=== PATIENT | male | born 1940 | race Caucasian/White ===

== ENCOUNTER 2019-09-29 07:57 | Day surgery (SDC) | payer OTHER, SELFPAY ==
[2019-09-28 10:13] VITALS: BMI 14.8
[2019-09-29 08:35] VITALS: BMI 14.8
--- NOTE | 2019-09-29 08:45 | ANES.PREANE2 ---
Pre-Anesthetic Assessment Pre-Anesthetic Assessment: Height/Weight: Height 1.88 m Weight 52.163 kg Preop Diagnosis: Screening colonoscopy with history of partial colectomy Proposed Procedure: Operation Date: 09/29/19 09:00 Proposed Procedures p Colonoscopy(Not Applicable) - Arnold Mckinney MD Was Beta Yelitza taken within 24 hours: N/A Last intake: Intake Last Liquid Date 09/28/19 Last Liquid Time 22:00 Last Solid Date 09/27/19 Last Solid Time 16:30 Social: Social History: Tobacco and No alcohol Exam: Pre-Anes Outpt Exam: alert, oriented x 3, clear to auscultation bilaterally and regular rate & rhythm Airway: Submandibular: WNL Cervical ROM: WNL MP: 1 Additional comments: upper edentulous, lower arch poor dentition Pulmonary: Pulmonary: COPD CV/HEM: CV/HEM: HTN Comments: pvdZ, cad, aaa : : Chronic renal failure Hepatic: Hepatic: None reported GI: GI: GERD Musc/skel: Musc/skel: None reported Neuropsych: Neuropsych: None reported Anesthetic Plan: ASA status: 3 Anesthesia: MAC Risk of > 500 ml blood loss (7ml/kg in children): No PFSH Anesthesia PFSH: Social History Smoking and tobacco status: current every day smoker cigarettes Packs smoked per day: 0.5 Alcohol intake: current Alcohol intake frequency: few times a month Lives independently: Yes Household members: family service: Yes Current occupational status: retired History of recent travel: No Data Anesthesia Cardiac Studies: No Data to Display
--- NOTE | 2019-09-29 08:50 | W.PM.OPSFHP ---
Same Day Surgery H&P Indication for Procedure/HPI DATE OF PROCEDURE: September 29, 2019 CHIEF COMPLAINT/INDICATIONFOR SURGICAL PROCEDURE: Screening colonoscopy PREOP DIAGNOSIS: Screening colonoscopy with history of partial colectomy PLANNED PROCEDRUE: Operation Date: 09/29/19 09:00 Proposed Procedures p Colonoscopy(Not Applicable) - Arnold Mckinney MD This is a 79 years old gentleman presented to my office for referral to discuss screening colonoscopy as patient had history of partial colectomy for colon cancer but he does not recall which part of the colon was removed. The scheduled for today to perform a screening colonoscopy ROS All systems have been reviewed negative except as per the above Medications/Allergies* Home Medications Medication Instructions Recorded Confirmed Type albuterol sulfate 90 mcg/actuation 2 inh INHALATION Q6H PRN 08/26/19 09/28/19 History breath activated powder inhaler multivitamin 1 tab PO DAILY 08/26/19 09/28/19 History Allergies/Adverse Reactions Allergy/AdvReac Type Severity Reaction Status Date / Time No Known Allergies Allergy Verified 09/29/19 08:51 Pertinent History/Comorbid Conditions* Surgical History (Updated 08/27/19 @ 11:48 by Arnold Mckinney MD) History of cholecystectomy Thinks he might have some of his colon removed with this surgery History of hernia surgery He said he has had a few of these History of tonsillectomy and adenoidectomy Family History (Updated 08/26/19 @ 13:48 by IRENE Springer) Denies family history of Anesthesia complication Bleeding disorder Social History Smoking and tobacco status: current every day smoker cigarettes Packs smoked per day: 0.5 Alcohol intake: current Alcohol intake frequency: few times a month Lives independently: Yes Household members: family service: Yes Current occupational status: retired History of recent travel: No Pertinent Exam Findings alert, oriented x 3, clear to auscultation bilaterally, regular rate & rhythm and procedure specific exam findings (Abdomen nontender non-distended soft and no guarding or rigidity) Pertinent Data PERTINENT DATA: Plan of care; After thorough history and physical examination and reviewing the chart, plan to perform screening colonoscopy in the GI lab All questions have been answered and all concerns have been addressed to patient's satisfaction. Informed consent per chart were,Indications, risks, benefits, and alternatives were all discussed with the patient and did agree to proceed. Verbal and written Instructions were given to the patient for colonoscopy prep Recommendations Surgery/Procedure today (Screening colonoscopy) Coding Level of Care Code Acute Line Appliance Assembler for Mejia Barber
[2019-09-29 08:53] VITALS: BP 147/80; PULSE 68; RESP 18; TEMP 36.4; O2SAT 98
[2019-09-29] MEDS: sodium chloride 0.9% 1,000 ML 30 ML (08:58)
[2019-09-29 10:16] VITALS: BP 93/54; PULSE 68; RESP 16; TEMP 36.3; O2SAT 98
--- NOTE | 2019-09-29 10:39 | ANE.PACU2 ---
 Inpatient post-anesthesia follow up: Airway intact: Yes Vital signs: Temperature 97.4 F Pulse Rate 68 Respiratory Rate 16 Blood Pressure 93/54 Pulse Oximetry 98 Oxygen Delivery Me thod Nasal Cannula Oxygen Flow Rate 3 Fraction of Inspir ed Oxygen Hydration adequate: Yes Nausea and vomiting: No Pain level: 1 Mental status: Baseline
[2019-09-29 10:40] VITALS: BP 107/56; PULSE 67; RESP 18; O2SAT 95
--- NOTE | 2019-09-29 10:48 | XR_ITS ---
WS: [id number] JEB, 09/29/2019 Clinical Data: S/p felx sig rule out gaseous distention prior to BA enema Comparison: None. Findings: No abnormal intraabdominal masses or calcifications are seen. There is no dilatated small bowel or ev idence of obstruction. There is a large amount of air throughout the colon but no obstruction is seen. There are clips in th e gastroesophageal area and in the right upper quadrant from surgery. XR/XR KUB [id number] Impression: Large amount of air throughout colon from flexible sigmoidoscopy.
== END 2019-09-29 10:57 | disposition home or self-care (01) ==
PROVIDERS: Family Provider Internal Medicine; PCP Internal Medicine; Visit Provider Surgery
PROC: 0DJD8ZZ Inspection of Lower Intestinal Tract, Via Natural or Artificial Opening Endoscopic (ICD-10-PCS; CPT 45378; principal; 2019-09-29 09:00)
DX: Z12.11 Encounter for screening for malignant neoplasm of colon (principal); K57.30 Diverticulosis of large intestine without perforation or abscess without bleeding; Z90.49 Acquired absence of other specified parts of digestive tract; F17.210 Nicotine dependence, cigarettes, uncomplicated; J44.9 Chronic obstructive pulmonary disease, unspecified; I10 Essential (primary) hypertension; K21.9 Gastro-esophageal reflux disease without esophagitis
CPT/HCPCS: 12345; 45330; 74018; J2704; J7030

== ENCOUNTER 2019-10-11 07:49 | Outpatient (CLI) | payer OTHER, SELFPAY ==
--- NOTE | 2019-10-11 07:57 | FL_ITS ---
WS: [id number] INDICATION: Diverticulosis TECHNIQUE: Single contrast barium enema FINDINGS: Markedly tortuous sigmoid colon with diverticulosis. No evidence of high-grade stricture or mass. Normal hepatic and splenic flexures. Normal cecum and ileocecal valve. Normal postdrainage landy ges Osteopenia. Lumbar scoliosis convex left. Surgical clips at the GE junction. FL/FL barium enema [id number] IMPRESSION: 1. Markedly tortuous sigmoid colon with diverticulosis. 2. No evidence of high-grade stricture or obstructing mass. 3. Normal ileocecal valve.
== END 2019-10-11 07:50 | disposition home or self-care (01) ==
LOC: RAD 07:50
PROVIDERS: Family Provider Internal Medicine; PCP Internal Medicine; Visit Provider Surgery
DX: K57.90 Diverticulosis of intestine, part unspecified, without perforation or abscess without bleeding (principal)
CPT/HCPCS: 74270

== ENCOUNTER 2022-04-03 12:02 | Inpatient (IN) | payer OTHER, SELFPAY ==
[2022-04-03] VITALS (12 sets, daily range): BP systolic 125–152; BP diastolic 65–82; PULSE 74–84; RESP 18–20; TEMP 36.7; O2SAT 86–100; BMI 14.1
--- NOTE | 2022-04-03 13:38 | XR_ITS ---
WS: [id number] XR hip LT 2-3V wo/w pel* [id number] REASON FOR EXAM: fall injury FINDINGS: Moderate narrowing of the hip joint space with subchondral sclerosis and marginal osteophytosis of th e acetabulum. Subtle deformity of the superior aspect of the femoral neck and linear lucencies in the intertrochant jaime region. Suspect incomplete nondisplaced intertrochanteric fracture. Superior pubic ramus and inferior pubic ramus are intact. Acetabulum appears intact. XR/XR hip LT 2-3V wo/w pel* [id number] IMPRESSION: Likely incomplete nondisplaced intertrochanteric fracture. A CT scan of the lef t hip could be obtained for better evaluation as clinically warranted.
--- NOTE | 2022-04-03 13:38 | XR_ITS ---
WS: [id number] XR femur LT min 2V* [id number] REASON FOR EXAM: fall injury FINDINGS: Intertrochanteric abnormality as noted on the left hip x-ray. The remainder of the left femur is intact without fracture. No significant soft tissue abnormality. XR/XR femur LT min 2V* [id number] IMPRESSION: No fracture of the mid and distal femur as above.
--- NOTE | 2022-04-03 14:48 | XR_ITS ---
WS: [id number] XR chest 1V portable [id number] REASON FOR EXAM: dyspnea/cough FINDINGS: Moderate tortuosity of the thoracic aorta. Normal heart size. Calcified granulomatous disease bilaterally. Significant hyperexpansion of the lungs. Small vague areas of lucency within the lung parenchyma In the upper lobes compatible with central lobar emphysema. No acute pulmonary parenchymal or pleural abnormality. Moderate degenerative spondylosis in the mid and lower thoracic spine. XR/XR chest 1V portable [id number] IMPRESSION: Obstructive lung disease with no acute finding.
--- NOTE | 2022-04-03 14:58 | CTR_ITS ---
PROCEDURE INFORMATION: Exam: CT Left Lower Extremity Without Contrast, Hip Exam date and time: 04/03/2022 3:27 PM Age: 81 years old Clinical indication: Injury or trauma and abnormal findings; Fall; Abnormal imaging study; Abnormal left hip XR; Blunt trauma; Additional info: Abnormal plain x-ray TECHNIQUE: Imaging protocol: CT of the Left lower extremity without contrast was performed. Exam focused on the hip. Axial, coronal and sagittal reformatted images were created and reviewed. Radiation optimization: All CT scans at this facility use at least one of these dose optimization techniques: automated exposure control; mA and/or kV adjustment per patient size (includes targeted exams where dose is matched to clinical indication); or iterative reconstruction. COMPARISON: CR XR hip LT 2-3V wo/w pel* [id number] 04/03/2022 1:46 PM RADIATION DOSE METRICS: Total DLP (mGy-cm): 217.11 FINDINGS: Bones/joints: Comminuted, minimally displaced fracture of the greater humeral tuberosity with nondisplaced fracture lines extending to the anterior aspect of the inter trochanteric region. No dislocation. Mild left hip joint osteoarthrosis. Small hemarthrosis. Soft tissues: Normal. Reproductive: Markedly enlarged prostate. CT/CT hip LT wo con* [id number] IMPRESSION: 1. Proximal femur fracture, as described above. 2. Additional findings, as above.
[2022-04-03 15:19] LABS: Basophils % 0.4 %; Eosinophils # 0.1 10^3/uL (0.0-0.8); Eosinophils % 0.7 %; Hematocrit 46.2 % (42.0-52.0); Hemoglobin 14.9 g/dL (11.7-16.6); Lymphocytes % 8.9 %; Mean Corpuscular HGB Conc 32.3 g/dL (30.0-36.0); Mean Corpuscular Hemoglobin 30.7 pg (28.0-34.0); Mean Corpuscular Volume 95.1 fl (80-94); Mean Platelet Volume 10.6 fL (7.4-10.4); Monocytes # 0.9 10^3/uL (0.2-0.9); Monocytes % 8.1 %; Neutrophils # 9.14 10^3/uL (1.8-7.7); Neutrophils % 81.6 %; Nucleated Red Blood Cells % 0 %; Platelet Count 210 10^3/cmm (130-400); Red Blood Count 4.86 10^6/uL (4.1-5.3); Red Cell Distribution Width 13.7 % (12.1-15.1); White Blood Count 11.2 10^3/uL (4.0-10.0)
[2022-04-03 15:33] LABS: INR 1.06 (0.8-1.2)
[2022-04-03 15:34] LABS: Partial Thromboplastin Time 28.8 SECONDS (23.9-36.7)
[2022-04-03 15:38] LABS: Add Urine Microscopic? NO; Charge for UA Resulting for Rev
[2022-04-03 15:40] LABS: Alanine Aminotransferase 21 U/L (0-41); Albumin Level 4.2 g/dL (3.5-5.2); Alkaline Phosphatase 129 U/L (40-130); Aspartate Amino Transferase 20 U/L (0-40); Blood Urea Nitrogen 18 mg/dL (8-23); Calcium 9.5 mg/dL (8.5-10.5); Carbon Dioxide 23 mmol/L (22-29); Chloride 100 mmol/L (98-107); Globulin 3.2 g/dL (1.3-4.6); Glucose 99 mg/dL (65-115); Osmolality Calculated 286 mOsm/kg (285-295); Sodium 137 mmol/L (136-145); Total Bilirubin 1.2 mg/dL (0.15-1.2); Total Protein 7.4 g/dL (6.6-8.7)
[2022-04-03 15:43] LABS: Anion Gap 19.1 (5-19); Potassium 5.1 mmol/L (3.5-5.1)
[2022-04-03 15:45] LABS: Bilirubin Urine Neg (Negative); Blood Urine Neg (Negative); Glucose Urine UA Norm (Normal); Ketones Urine 1+ (Negative); Leukocyte Esterase Urine Negative (Negative); Nitrate Urine Negative (Negative); Protein Urine Neg (Negative); Urine Appearance Clear (CLEAR); Urine Color Dark Yellow (Yellow); Urobilinogen Urine 1 mg/dL (Negative); pH Urine 6 (5-7)
[2022-04-03] MEDS: ondansetron 2 mg/ML SDV 2 mL 4 MG IVP ×2 (15:47→23:04)
[2022-04-03] MEDS: morphine 4 mg/mL SDV 1 mL IVP ×2 (15:47→23:04)
--- NOTE | 2022-04-03 15:54 | ECG_ITS ---
[facility] Test Date: 2022-04-03 Pat Name: Thaddeus Shahid Department: Room: Gender: Male Financial Solutions Advisor: GINNY: 1940 Requested By: Ziyad Dejesus Order Number: [id number] Tawnya MD: Vitaly Gonzales M.D. Measurements Intervals [place] Rate: 79 P: 90 [place]: 177 QRS: 10 QRSD: 98 T: 79 QT: 386 QTc: 443 Interpretive Statements SINUS RHYTHM WITH OCCASIONAL SUPRAVENTRICULAR PREMATURE COMPLEXES SEPTAL MYOCARDIAL INFARCTION , OF INDETERMINATE AGE [40+ ms Q WAVE IN V1/V2] No previous ECG available for comparison Electronically Signed On 04-04-2022 10:34:34 CDT by Vitaly Gonzales M.D. [id number]
--- NOTE | 2022-04-03 15:56 | ED_ITS ---
HPI - Fall General: Chief Complaint: Fall Stated Complaint: Leg Pain Time Seen by Provider: 04/03/22 14:46 Source: patient Mode of arrival: EMS History of Present Illness: 81-year-old male presents emergency room he tripped and fell yesterday and hurt his left leg. Patient is complaining is not able to bear weight. He complains of severe pain in his left hip radiating down the lateral part of his upper leg. He had no other injury at the time of the fall. He has a history of severe COPD is very coarse audible wheezes as well. No recent fever sweats or chills. MD complaint: fall Onset (ago): day(s) (1) Fall from: standing Fall witnessed: no Place fall occurred: home Loss of consciousness: None Prolonged down time: no Symptoms prior to fall: none Context: tripped/slipped Location of injury: other (Left hip) Associated symptoms-after fall: Reports difficulty walking; Denies abdominal pain, chest pain, confusion, headache(s), hematuria, lightheadedness, neck pain, numbness, short of breath, vertigo or weakness Review of Systems Const: Denies: fever(s), chills, body aches, change in appetite, fatigue or malaise ENMT: Denies: throat pain, ear or mastoid pain, nasal discharge or nasal congestion Card: Denies: chest pain or lightheadedness Resp: Denies: dyspnea, productive cough or non-productive cough GI: Denies: abdominal pain : Denies: hematuria Musc: Denies: neck pain Skin/Breast: Denies: rash or pruritus Neuro: Reports: difficulty walking; Denies: headache(s), vertigo or confusion PFS ED PFSH: Medical History (Updated 04/03/22 @ 17:15 by Ziyad Tan DO) COPD (chronic obstructive pulmonary disease) Surgical History History of cholecystectomy Thinks he might have some of his colon removed with this surgery History of hernia surgery He said he has had a few of these History of tonsillectomy and adenoidectomy Family History Denies family history of Anesthesia complication Bleeding disorder Social History (Updated 04/03/22 @ 17:13 by Ziyad Tan DO) Smoking and tobacco status: current every day smoker cigarettes Packs smoked per day: 0.5 Alcohol intake: current Alcohol intake frequency: few times a month Lives independently: Yes Household members: family service: Yes Current occupational status: retired History of recent travel: No Physical Exam Const: GENERAL APPEARANCE: cooperative and comfortable ORIENTATION/ CONSCIOUSNESS: Yes awake, Yes oriented to person, Yes oriented to place and Yes oriented to time HENMT: COMMON NORMALS: normocephalic and atraumatic HEAD & SCALP: normocephalic and atraumatic Resp: COMMON NORMALS: normal respiratory effort, No retractions, No use of accessory muscles and clear to auscultation bilaterally AUSCULTATION: clear to auscultation bilaterally Cardio: COMMON NORMALS: regular rate, regular rhythm and No murmurs present (Cardio) RATE: regular rate RHYTHM: regular rhythm GI: COMMON NORMALS: Soft to palpation and No hepatosplenomegaly present AUSCULTATION: Yes normoactive bowel sounds PALPATION: Yes Soft to palpation, No Tenderness to palpation present (GI), No Guarding due to palpation present (GI) and Yes No hepatosplenomegaly present Extremity: COMMON NORMALS: normal to inspection, capillary refill normal, no clubbing, cyanosis or edema, no calf tenderness and no pedal edema OTHER: Pain to the left hip no deformity inability to move Neuro: SENSORIUM/ORIENTATION: Yes oriented to person, Yes oriented to place and Yes oriented to time Skin: COMMON NORMALS: no rashes or lesions noted GENERAL SKIN EXAM: no rashes or lesions noted Course Vital Signs: Vital signs: Vital Signs Temperature 98.1 F 04/03/22 13:22 Pulse Rate 77 04/03/22 17:10 Respiratory Rate 18 04/03/22 17:08 Blood Pressure 126/65 04/03/22 15:00 Pulse Oximetry 92 04/03/22 17:08 Oxygen Delivery Me thod 04/03/22 17:08 MDM - Fall Medical Decision Making X-ray shows questionable left hip fracture CT confirms discussed with Dr. Roman he reviewed the films confirms he will need surgery and will admit. Admit to hospital discussed Dr. Jiang orders written Medical Records I reviewed the patient's medical records. Lab Data I reviewed the patient's lab results. : 04/03/22 15:12 04/03/22 15:12 Radiology Impressions Femur X-Ray 04/03/22 13:38 IMPRESSION: No fracture of the mid and distal femur as above. Hip/Pelvis X-Ray 04/03/22 13:38 IMPRESSION: Likely incomplete nondisplaced intertrochanteric fracture. A CT scan of the left hip could be obtained for better evaluation as clinically warranted. Chest X-Ray 04/03/22 14:48 IMPRESSION: Obstructive lung disease with no acute finding. Hip CT 04/03/22 14:58 IMPRESSION: 1. Proximal femur fracture, as described above. 2. Additional findings, as above. Laboratory Results WBC 11.2 10^3/uL (4.0-10.0) H 04/03/22 15:12 RBC 4.86 10^6/uL (4.1-5.3) 04/03/22 15:12 Hgb 14.9 g/dL (11.7-16.6) 04/03/22 15:12 Hct 46.2 % (42.0-52.0) 04/03/22 15:12 MCV 95.1 fl (80-94) H 04/03/22 15:12 MCH 30.7 pg (28.0-34.0) 04/03/22 15:12 MCHC 32.3 g/dL (30.0-36.0) 04/03/22 15:12 RDW 13.7 % (12.1-15.1) 04/03/22 15:12 Plt Count 210 10^3/cmm (130-400) 04/03/22 15:12 MPV 10.6 fL (7.4-10.4) H 04/03/22 15:12 Neut % (Auto) 81.6 % 04/03/22 15:12 Lymph % (Auto) 8.9 % 04/03/22 15:12 [place] % (Auto) 8.1 % 04/03/22 15:12 Eos % (Auto) 0.7 % 04/03/22 15:12 Baso % (Auto) 0.4 % 04/03/22 15:12 Neut # (Auto) 9.14 10^3/uL (1.8-7.7) H 04/03/22 15:12 Lymph # (Auto) 1.0 10^3/uL (0.8-4.8) 04/03/22 15:12 [place] # (Auto) 0.9 10^3/uL (0.2-0.9) 04/03/22 15:12 Eos # (Auto) 0.1 10^3/uL (0.0-0.8) 04/03/22 15:12 Baso # (Auto) 0.0 10^3/uL (0.0-0.1) 04/03/22 15:12 Nucleated RBC % (auto) 0 % 04/03/22 15:12 Nucleated RBCs # 0.0 /100WBC 04/03/22 15:12 PT 14.10 SECONDS (12.1-14.9) 04/03/22 15:12 INR 1.06 (0.8-1.2) 04/03/22 15:12 APTT 28.8 SECONDS (23.9-36.7) 04/03/22 15:12 Sodium 137 mmol/L (136-145) 04/03/22 15:12 Potassium 5.1 mmol/L (3.5-5.1) 04/03/22 15:12 Chloride 100 mmol/L (98-107) 04/03/22 15:12 Carbon Dioxide 23 mmol/L (22-29) 04/03/22 15:12 Anion Gap 19.1 (5-19) H 04/03/22 15:12 BUN 18 mg/dL (8-23) 04/03/22 15:12 Creatinine 0.7 mg/dL (0.7-1.2) 04/03/22 15:12 GFR Calculation Not Reportable 04/03/22 15:12 Glucose 99 mg/dL (65-115) 04/03/22 15:12 Calculated Osmolality 286 mOsm/kg (285-295) 04/03/22 15:12 Calcium 9.5 mg/dL (8.5-10.5) 04/03/22 15:12 Total Bilirubin 1.2 mg/dL (0.15-1.2) 04/03/22 15:12 AST 20 U/L (0-40) 04/03/22 15:12 ALT 21 U/L (0-41) 04/03/22 15:12 Alkaline Phosphatase 129 U/L (40-130) 04/03/22 15:12 Total Protein 7.4 g/dL (6.6-8.7) 04/03/22 15:12 Albumin 4.2 g/dL (3.5-5.2) 04/03/22 15:12 Globulin 3.2 g/dL (1.3-4.6) 04/03/22 15:12 Urine Color Dark yellow (Yellow) 04/03/22 15:24 Urine Appearance Clear (CLEAR) 04/03/22 15:24 Urine pH 6 (5-7) 04/03/22 15:24 Ur Specific [place] 1.020 (1.005-1.030) 04/03/22 15:24 Urine Protein Neg (Negative) 04/03/22 15:24 Urine Glucose (UA) Norm (Normal) 04/03/22 15:24 Urine Ketones 1+ (Negative) H 04/03/22 15:24 Urine Blood Neg (Negative) 04/03/22 15:24 Urine Nitrate Negative (Negative) 04/03/22 15:24 Urine Bilirubin Neg (Negative) 04/03/22 15:24 Urine Urobilinogen 1 mg/dL (Negative) H 04/03/22 15:24 Ur Leukocyte Esterase Negative (Negative) 04/03/22 15:24 Discharge Plan Discharge Patient Disposition: Admitted As Inpatient Clinical Impression: Closed intertrochanteric fracture of left hip, COPD (chronic obstructive pulmonary disease) Condition: Stable Prescriptions: No Action multivitamin [Multiple Vitamins] Tablet 1 tab PO DAILY albuterol sulfate 90 mcg/actuation aerosol powdr breath activated 2 inh INHALATION Q6H PRN (Reason: Shortness Of Breath Or Wheezing) Referrals: Eder Ortiz [Primary Care Provider] - Patient Instructions: Opioid Safety, Pain Management Coding Level of Care Code ED Inspector Tool for Chg Fwd Exam Detailed
[2022-04-03] MEDS: ipratropium-albuterol 3 mL Neb INHALATION (17:05)
--- NOTE | 2022-04-03 18:25 | P.HP_ITS ---
Providers/Chief Complaint Primary Care Provider: Eder Ortiz Chief Complaint: Leg Pain History of Present Illness Thaddeus Shahid is a 81 year old male with no significant past medical history other than COPD and the fact that he is a smoker presents to the hospital after having a mechanical fall. He is currently remodeling a property and he says he tripped over something and fell on his hip. He was having a lot of pain and therefore came to the hospital. He does not use oxygen at home. He says that he has been given an inhaler in the past but does not really use it very often. He is able to walk but eventually gets a little bit short of breath. He does not really follow-up with a doctor. Denies chest pain, shortness of breath at this time, nausea, vomiting, diarrhea. Does have some pain in his hip from his fall. Denies lower extremity edema. Lives at home with his son. Patient unable to bear any weight on his left leg. ED course: On arrival blood pressure 150/74, heart rate stable, on room air saturating 88%. WBC count 11.2. Femur x-ray showed no fracture of middle distal femur, hip pelvis x-ray showed likely incomplete nondisplaced intertrochanteric fracture. Chest x-ray showed COPD with no acute finding. Hip CT showed proximal femur fracture. Case was discussed with orthopedic surgeon on-call. Plan to take patient to surgery in a.m. Medications/Allergies Home Medications Medication Instructions Recorded Confirmed Last Taken Type albuterol sulfate 90 mcg/actuation 2 inh inhalation Q6H PRN Shortness 08/26/19 04/03/22 Unknown History breath activated powder inhaler Of Breath Or Wheezing multivitamin (Multiple Vitamins) 1 tab PO DAILY 08/26/19 04/03/22 Unknown History Allergies Allergy/AdvReac Type Severity Reaction Status Date / Time No Known Allergies Allergy Verified 04/03/22 15:52 PFSH Acute PFSH: Medical History (Updated 04/04/22 @ 11:36 by Fernando Roman MD) COPD (chronic obstructive pulmonary disease) Surgical History History of cholecystectomy Thinks he might have some of his colon removed with this surgery History of hernia surgery He said he has had a few of these History of tonsillectomy and adenoidectomy Family History Denies family history of Anesthesia complication Bleeding disorder Social History (Updated 04/03/22 @ 17:13 by Ziyad Tan DO) Smoking and tobacco status: current every day smoker cigarettes Packs smoked per day: 0.5 Alcohol intake: current Alcohol intake frequency: few times a month Lives independently: Yes Household members: family service: Yes Current occupational status: retired History of recent travel: No Vitals/I&O/Wt Last Vital Signs Temp 98.1 F 04/03/22 13:22 Pulse 77 04/03/22 17:10 Resp 18 04/03/22 17:08 BP 126/71 04/03/22 17:20 Pulse Ox 86 L 04/03/22 17:20 O2 Del Method 04/03/22 17:08 Weight last 48 hrs Weight 49.895 kg Physical Exam Narrative: General: Alert oriented x3, patient seen laying in bed appearing comfortable at this time on room air saturating 89 to 90%. HEENT: Normocephalic, atraumatic, EOMI, breathing comfortably on room air. No acute distress Cardio: Regular rate rhythm, normal S1-S2, no murmurs Respiratory: Diminished air entry bilaterally, no wheezes no rhonchi present at this time. GI: Abdomen soft, nontender, nondistended, bowel sounds + Behavior: Appropriate and cooperative Extremities: No lower extremity edema bilaterally, mild tenderness to palpation at left hip area. Data : 04/04/22 06:19 04/04/22 06:19 A&P Assessment and plan (1) Intertrochanteric fracture of left hip: Status: Acute (2) Closed intertrochanteric fracture of left hip: Status: Acute (3) COPD (chronic obstructive pulmonary disease): Status: Acute (4) Diverticulosis: Status: Chronic Plan #Left proximal femur fracture #COPD centrilobular emphysema #Diverticulosis ? N.p.o. midnight tonight ? Orthopedic surgery consulted. Plan for surgery in a.m. ? DuoNeb every 6 hour as needed ? Patient able to go up a flight of stairs slowly but does get short of breath due to his underlying pulmonary status. He cannot walk a block without shortness of breath. Unable to do 4 METS due to pulmonary status. Denies chest pain. Denies any heart issues otherwise. ? Revised cardiac risk index one-point. Patient has a class II, 6% risk of 30- day risk of AL or cardiac arrest. -Patient does not follow-up with a data center project manager. -We will need to do home oxygen evaluation at discharge and set him up with home oxygen. Most likely patient will qualify. I will also set him up with albuterol, Symbicort, Spiriva. ? We will refer to pulmonology at discharge for formal PFTs and further management ? Orthopedic surgery consulted. Plan for surgery in a.m. All questions answered to patient satisfaction. He states he is already talked to his family and does not want me to call them at this moment. Full code DVT prophylaxis: Heparin SQ twice daily Attestations Medical Necessity Statement*: Patient will cross greater than 2 midnights for management of left proximal femur fracture. Coding Level of Care Code Acute Market Gardener for Mejia Barber Diagnoses Intertrochanteric fracture of left hip S72.142A Closed intertrochanteric fracture of left hip S72.142A COPD (chronic obstructive pulmonary disease) J44.9 Diverticulosis K57.90
[2022-04-03] MEDS: sodium chloride 0.9% 1,000 ML 75 ML IV (21:03)
[2022-04-03] MEDS: famotidine 20 mg/2 mL INJ IVP (21:03)
[2022-04-04] VITALS (34 sets, daily range): BP systolic 99–140; BP diastolic 50–68; PULSE 67–91; RESP 14–22; TEMP 36.3–37.7; O2SAT 87–99; BMI 12.7
[2022-04-04] MEDS: sodium chloride 0.9% 1,000 ML 75 ML IV ×2 (02:18→20:58)
[2022-04-04] MEDS: morphine 4 mg/mL SDV 1 mL IVP ×3 (03:07→18:56)
[2022-04-04] MEDS: efferdent effervescent 1 EACH DENTAL (03:07)
[2022-04-04] MEDS: famotidine 20 mg/2 mL INJ IVP ×2 (06:37→20:57)
[2022-04-04 07:02] LABS: Basophils % 0.3 %; Eosinophils # 0.1 10^3/uL (0.0-0.8); Eosinophils % 1.2 %; Hematocrit 39.5 % (42.0-52.0); Hemoglobin 12.4 g/dL (11.7-16.6); Lymphocytes # 0.7 10^3/uL (0.8-4.8); Lymphocytes % 6.5 %; Mean Corpuscular HGB Conc 31.4 g/dL (30.0-36.0); Mean Corpuscular Hemoglobin 31.2 pg (28.0-34.0); Mean Corpuscular Volume 99.2 fl (80-94); Mean Platelet Volume 10.6 fL (7.4-10.4); Monocytes # 0.8 10^3/uL (0.2-0.9); Monocytes % 7.4 %; Neutrophils # 8.89 10^3/uL (1.8-7.7); Neutrophils % 84.3 %; Nucleated Red Blood Cells % 0 %; Platelet Count 160 10^3/cmm (130-400); Red Blood Count 3.98 10^6/uL (4.1-5.3); White Blood Count 10.5 10^3/uL (4.0-10.0)
[2022-04-04 07:22] LABS: Alanine Aminotransferase 25 U/L (0-41); Albumin Level 3.2 g/dL (3.5-5.2); Alkaline Phosphatase 138 U/L (40-130); Anion Gap 12.4 (5-19); Aspartate Amino Transferase 25 U/L (0-40); Blood Urea Nitrogen 23 mg/dL (8-23); Calcium 8.3 mg/dL (8.5-10.5); Carbon Dioxide 25 mmol/L (22-29); Chloride 107 mmol/L (98-107); Globulin 2.5 g/dL (1.3-4.6); Glucose 125 mg/dL (65-115); Magnesium 1.8 mg/dL (1.7-2.3); Osmolality Calculated 295 mOsm/kg (285-295); Potassium 4.4 mmol/L (3.5-5.1); Sodium 140 mmol/L (136-145); Total Bilirubin 0.5 mg/dL (0.15-1.2); Total Protein 5.7 g/dL (6.6-8.7)
[2022-04-04] MEDS: ipratropium-albuterol 3 mL Neb INHALATION ×3 (07:31→16:32)
--- NOTE | 2022-04-04 10:35 | PC.CHAP ---
Pastoral Care Encounter/Spiritual Assessment Type of Contact [] Declined steel handler visit [] Patient/Family/Request visit [] Outpatient visit [] Follow-up visit [] Physician referral [] Code/Alert [x] Routine visit [] Staff referral [] Actively dying [] Patient sleeping [] Family support [] [] Out of room [] Palliative care [] [x] Receiving care in room [] Pre-surgical visit [] Trauma [] Long length of stay [] ICU visit [] Other: Relational/Emotional Strength [x] Patient feels connected with others/family/visitors/staff [] Distress [] Loneliness/isolation [] Abandonment Spirituality of Patient [] Person of Isatu [] Attends Spiritism of their Isatu [] Believes in Prayer [] Reads Bible or Congregation materials [] There are Spiritual issues to be addressed Vp Research Interventions [x] Prayer [x] Active listening [x] Non-anxious presence [x] Spiritual/emotional support [] Crisis/trauma care [x] Spiritual counseling [] Bereavement support [] Provided bereavement packet [] Provided Bible/devotional materials [] Provided toy/stuffed animal, coloring book to patient or family member [] Provided Communion [] Anointing/[place] [] Salvation [x] Completed spiritual assessment [] Other: Impact on Illness or Injury [] Angry [] Fearful [x] Anxious [] Often cries [] Exhaustion [] Unable to work [] Unable to attend cheondoism [] Unable to walk/stand [] Unable to read [] Unable to drive [] Unable to eat/drink [] Unable to sleep [] Unable to be with family [] Patient intubated [] Other: Summary going to have hip suergry has a good attitude well need some time to recovery will go home soon Time spent with patient 10 mins
--- NOTE | 2022-04-04 11:33 | PM.CONSULT ---
Providers/Reason For Consult Consulting Physician/Specialty*: Fernando Roman MD; orthopedic surgeon Reason for Consult*: Left intratrochanteric hip fracture Attending Physician: Tonya Jiang MD Primary Care Provider: Eder Ortiz History of Present Illness History of Present Illness Thaddeus Shahid is a 81 year old male who allegedly fell at home yesterday with resulting pain in his left hip. He was seen in urgent care where a CT scan was ultimately performed revealing a intratrochanteric hip fracture. The patient's been unable to bear weight. He has a significant history of COPD. He is admitted to the medicine service. Orthopedics is consulted for management of the fracture. He states prior to this he was very active. He actually was remodeling a house. He relied on no aids to ambulation and drove and was fully functional in the community. Medications/Allergies Home Medications Medication Instructions Recorded Confirmed Last Taken Type albuterol sulfate 90 mcg/actuation 2 inh inhalation Q6H PRN Shortness 08/26/19 04/03/22 Unknown History breath activated powder inhaler Of Breath Or Wheezing multivitamin (Multiple Vitamins) 1 tab PO DAILY 08/26/19 04/03/22 Unknown History Allergies Allergy/AdvReac Type Severity Reaction Status Date / Time No Known Allergies Allergy Verified 04/03/22 15:52 Current Medications Generic Name Dose Route Start Last Admin Trade Name Freq PRN Reason Stop Dose Admin Albuterol/Ipratropium 3 ml 04/03/22 20:00 04/04/22 07:31 Ipratropium-Albuterol 3 Ml Neb INHALATION 3 ml QID.RESPIRATORY ALVARO Administration Famotidine 20 mg 04/03/22 18:30 04/04/22 06:37 Famotidine 20 Mg/2 Ml Inj IVP 20 mg Q12H ALVARO Administration Sodium Chloride 1,000 mls @ 75 mls/hr 04/03/22 18:30 04/04/22 02:18 Sodium Chloride 0.9% IV 75 mls/hr .[id number] ALVARO Administration Morphine Sulfate 4 mg 04/03/22 22:34 04/04/22 07:48 Morphine 4 Mg/Ml Sdv 1 Ml IVP 4 mg Q4H PRN Administration SEVERE PAIN Multivitamins Therapeutic 1 tab 04/04/22 09:00 04/04/22 07:38 Multivitamin Therapeutic Tablet PO Not Given DAILY ALVARO Ondansetron HCl 4 mg 04/03/22 22:34 04/03/22 23:04 Ondansetron 2 Mg/Ml Sdv 2 Ml IVP 4 mg Q6H PRN Administration NAUSEA AND VOMITING PFSH Acute PFSH: Medical History (Updated 04/04/22 @ 11:36 by Fernando Roman MD) COPD (chronic obstructive pulmonary disease) Surgical History History of cholecystectomy Thinks he might have some of his colon removed with this surgery History of hernia surgery He said he has had a few of these History of tonsillectomy and adenoidectomy Family History Denies family history of Anesthesia complication Bleeding disorder Social History (Updated 04/03/22 @ 17:13 by Ziyad Tan DO) Smoking and tobacco status: current every day smoker cigarettes Packs smoked per day: 0.5 Alcohol intake: current Alcohol intake frequency: few times a month Lives independently: Yes Household members: family service: Yes Current occupational status: retired History of recent travel: No Vitals/I&O/Wt Last Vital Signs Temp 98.9 F 04/04/22 07:53 Pulse 91 04/04/22 07:53 Resp 18 04/04/22 07:53 BP 115/58 04/04/22 07:53 Pulse Ox 93 04/04/22 07:53 O2 Del Method 04/04/22 07:53 O2 Flow Rate 3 04/04/22 07:39 04/03/22 04/04/22 04/04/22 22:59 06:59 14:59 Intake Total 393.75 / 393.75 Balance 393.75 / 393.75 Weight last 48 hrs Weight 99 lb 8 oz Weight 110 lb Physical Exam Narrative: History hips is a thin elderly male in no obvious distress. He answers questions appropriately. He is oriented to person place or time. Sits in bed with his right hip and knee flexed in his left leg extended. He has exquisite pain with internal or external rotation of the left hip He will flex and extend his left toes and ankle. Left lower extremity sensation is intact light touch. Palpable left dorsalis pedis pulse Data : 04/04/22 06:19 04/04/22 06:[address]: My impression: I reviewed his CT scan of the right hip. The patient is a fracture of the greater trochanter with nondisplaced extension down medial into the lesser trochanter A&P Assessment and plan (1) Intertrochanteric fracture of left hip: I discussed options with the the patient. I told them we could treat this nonoperatively but certainly they would be at risk for medical problems without surgery. Theywould have problems with pain that would require narcotics for pain control. They would require a long period of bedrest aadc plans staff officer risk for pneumonia and skin breakdown. I discussed surgical intervention with the patient. I told them with open reduction internal fixation they should be able to be mobilized and resume ambulatory status. We can eliminate the problems associated with prolonged bed rest and would have better control of pain. Certainly there would be inherent risk with surgery. These would would include the risk of cardiac complications, stroke, infection, and even . I discussed risk of any orthopedic implant including nonunion, malunion, a component failure. I discussed the possible need for component removal. I discussed risk of deep venous thromboses and pulmonary emboli that are present with any treatment and the importance of DVT prophylaxis. They expressed good understanding of alternative treatments, seem to comprehend, and agrees to surgical intervention. 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
--- NOTE | 2022-04-04 13:24 | PM.PN ---
Subjective Subjective: Plan for surgery today around 1130. No acute events overnight. Patient doing okay. Saturating 96% on 2 L nasal cannula. Vitals/I&O/Wt Last Vital Signs Temp 99.2 F 04/04/22 11:34 Pulse 88 04/04/22 11:46 Resp 18 04/04/22 11:39 BP 118/66 04/04/22 11:34 Pulse Ox 93 04/04/22 11:39 O2 Del Method 04/04/22 11:39 O2 Flow Rate 3 04/04/22 11:39 04/03/22 04/04/22 04/04/22 22:59 06:59 14:59 Intake Total 393.75 / 393.75 Balance 393.75 / 393.75 Weight last 48 hrs Weight 45.132 kg Weight 49.895 kg Physical Exam Narrative: General: Alert oriented x3, on 2 L nasal cannula at this time. HEENT: Normocephalic, atraumatic, EOMI, breathing comfortably No acute distress Cardio: Regular rate rhythm, normal S1-S2, no murmurs Respiratory: Diminished air entry bilaterally, no wheezes no rhonchi present at this time. GI: Abdomen soft, nontender, nondistended, bowel sounds + Behavior: Appropriate and cooperative Extremities: No lower extremity edema bilaterally, mild tenderness to palpation at left hip area. Data : 04/04/22 06:19 04/04/22 06:19 A&P Assessment and plan (1) Intertrochanteric fracture of left hip: Status: Acute (2) Closed intertrochanteric fracture of left hip: Status: Acute (3) COPD (chronic obstructive pulmonary disease): Status: Acute (4) Diverticulosis: Status: Chronic Plan #Left proximal femur fracture #COPD centrilobular emphysema #Diverticulosis ? N.p.o. midnight tonight ? Orthopedic surgery consulted. Plan for surgery today around 1130. ? DuoNeb every 6 hour as needed ? Patient able to go up a flight of stairs slowly but does get short of breath due to his underlying pulmonary status. He cannot walk a block without shortness of breath. Unable to do 4 METS due to pulmonary status. Denies chest pain. Denies any heart issues otherwise. ? Revised cardiac risk index one-point. Patient has a class II, 6% risk of 30-day risk of [place] or cardiac arrest. -Patient does not follow-up with a security chief museum. -We will need to do home oxygen evaluation at discharge and set him up with home oxygen. Most likely patient will qualify. I will also set him up with albuterol, Symbicort, Spiriva. ? We will refer to pulmonology at discharge for formal PFTs and further management ? Plan for surgery today. -Order incentive spirometer postsurgery. Full code DVT prophylaxis: Heparin SQ twice daily Attestations Medical Necessity Statement*: Plan for surgery today. Coding Level of Care Code Acute Bottom Crane Operator for [facility] Fwd Diagnoses Intertrochanteric fracture of left hip S72.142A Closed intertrochanteric fracture of left hip S72.142A COPD (chronic obstructive pulmonary disease) J44.9 Diverticulosis K57.90
--- NOTE | 2022-04-04 14:52 | P.ANESASSM_ITS ---
Pre-Anesthetic Assessment Height/Weight: Height 1.88 m Weight 45.132 kg Temp Pulse Resp BP Pulse Ox O2 Del Method O2 Flow Rate 98.0 F 89 18 140/59 99 2 04/04/22 13:28 04/04/22 13:28 04/04/22 13:28 04/04/22 13:28 04/04/22 13:28 04/04/22 13:28 04/04/22 13:28 Preop Diagnosis: Left intratrochanteric hip fracture Operation Date: 04/04/22 12:40 Proposed Procedures p Trochanteric Femoral Nail(Left) - Fernando Roman MD Familial anesthetic complications: none Was Beta Yelitza taken within 24 hours: N/A Was Clonidine taken within 24 hours: N/A Last intake: Intake Last Liquid Date 04/03/22 Last Liquid Time 00:00 Last Solid Date 04/04/22 Last Solid Time 00:00 Social Tobacco and No alcohol Exam alert, oriented x 3 and regular rate & rhythm Airway Submandibular: within normal limits Cervical ROM: within normal limits Mallampati: Class II Dentition: false Pulmonary Chronic Obstructive Pulmonary Disease Anesthetic Plan ASA status: 3 Anesthesia: General Medications/Allergies Home Medications Medication Instructions Recorded Confirmed Last Taken Type albuterol sulfate 90 mcg/actuation 2 inh inhalation Q6H PRN Shortness 08/26/19 04/03/22 Unknown History breath activated powder inhaler Of Breath Or Wheezing multivitamin (Multiple Vitamins) 1 tab PO DAILY 08/26/19 04/03/22 Unknown History Allergies Allergy/AdvReac Type Severity Reaction Status Date / Time No Known Allergies Allergy Verified 04/03/22 15:52 Current Medications Generic Name Dose Route Start Last Admin Trade Name Clq PRN Reason Stop Dose Admin Albuterol/Ipratropium 3 ml 04/03/22 20:00 04/04/22 11:35 Ipratropium-Albuterol 3 Ml Neb INHALATION 3 ml QID.RESPIRATORY ALVARO Administration Famotidine 20 mg 04/03/22 18:30 04/04/22 06:37 Famotidine 20 Mg/2 Ml Inj IVP 20 mg Q12H ALVARO Administration Sodium Chloride 1,000 mls @ 75 mls/hr 04/03/22 18:30 04/04/22 02:18 Sodium Chloride 0.9% IV 75 mls/hr .[id number] ALVARO Administration Morphine Sulfate 4 mg 04/03/22 22:34 04/04/22 07:48 Morphine 4 Mg/Ml Sdv 1 Ml IVP 4 mg Q4H PRN Administration SEVERE PAIN Multivitamins Therapeutic 1 tab 04/04/22 09:00 04/04/22 07:38 Multivitamin Therapeutic Tablet PO Not Given DAILY ALVARO Ondansetron HCl 4 mg 04/03/22 22:34 04/03/22 23:04 Ondansetron 2 Mg/Ml Sdv 2 Ml IVP 4 mg Q6H PRN Administration NAUSEA AND VOMITING PFSH Anesthesia Medical History (Updated 04/04/22 @ 11:36 by Fernando Roman MD) COPD (chronic obstructive pulmonary disease) Surgical History History of cholecystectomy Thinks he might have some of his colon removed with this surgery History of hernia surgery He said he has had a few of these History of tonsillectomy and adenoidectomy Family History Denies family history of Anesthesia complication Bleeding disorder Social History (Updated 04/03/22 @ 17:13 by Ziyad Tan DO) Smoking and tobacco status: current every day smoker cigarettes Packs smoked pe r day: 0.5 Alcohol intake: current Alcohol intake frequency: few times a month Lives independently: Yes Household members: family service: Yes Current occupational status: retired History of recent travel: No Data Anesthesia : 04/04/22 06:19 04/04/22 06:19 Short CBC 04/03/22 04/04/22 Range/Units 15:12 06:19 WBC 11.2 H 10.5 H (4.0-10.0) 10^3/uL Hgb 14.9 12.4 (11.7-16.6) g/dL Hct 46.2 39.5 L (42.0-52.0) % MCV 95.1 H 99.2 H (80-94) fl Plt Count 210 160 (130-400) 10^3/cmm Neut % (Auto) 81.6 84.3 % Neut # (Auto) 9.14 H 8.89 H (1.8-7.7) 10^3/uL BMP 04/03/22 04/04/22 15:12 06:19 Sodium 137 140 Potassium 5.1 4.4 Chloride 100 107 Carbon Dioxide 23 25 BUN 18 23 Creatinine 0.7 0.8 Glucose 99 125 H Calcium 9.5 8.3 L Liver Function 04/03/22 04/04/22 Range/Units 15:12 06:19 Total Bilirubin 1.2 0.5 (0.15-1.2) mg/dL AST 20 25 (0-40) U/L ALT 21 25 (0-41) U/L Alkaline Phosphatase 129 138 H (40-130) U/L Albumin 4.2 3.2 L (3.5-5.2) g/dL Urine 04/03/22 Range/Units 15:24 Urine Color Dark yellow (Yellow) Urine Appearance Clear (CLEAR) Urine pH 6 (5-7) Ur Specific [place] 1.020 (1.005-1.030) Urine Protein Neg (Negative) Urine Glucose (UA) Norm (Normal) Urine Ketones 1+ H (Negative) Urine Nitrate Negative (Negative) Urine Bilirubin Neg (Negative) Ur Leukocyte Esterase Negative (Negative) Coags 04/03/22 15:12 PT 14.10 INR 1.06 APTT 28.8 Cardiac Studies: No Data to Display
[2022-04-04] MEDS: ceFAZolin 1,000 MG in sodium chloride 0.9% (plus) 50 ML 100 MG IV (15:32)
--- NOTE | 2022-04-04 15:50 | PM.OP ---
Operative Report Date of procedure: April 04, 2022 Pre-op diagnosis: Preop Diagnosis Left intratrochanteric hip fracture Post-op diagnosis: Same Procedure done: Open reduction internal fixation lefthip with intramedullary device Implants: Austin Gamma nail 13 mm x 380 mm, 10.5mm by 110 lag screw Pathology: none sent Surgeon: Fernando Roman Anesthesia: General Estimated blood loss (mL): 25 Condition: stable Disposition: PACU Procedure: The patient was taken to the operating room. They were given 1 g of Ancef. They were positioned on the fracture table with the right lower extremity in gentle traction. A timeout was performed. A 2 cm long incision was made proximal to the greater trochanter scalpel blade. Dissection was carried down to tip the greater trochanter. A guidepin was passed manually from the tip of the trochanter down the shaft. The proximal reamer was utilized to open up the proximal canal. An 13 mm by 380 Austin gamma nail was passed down the canal without difficulty. Under visualization of fluoroscopy a guidepin was driven up into the head and neck at 125? angle. It was measured at 110 mm in length and a lag screw similar length was then placed and locked into place with the proximal locking screw. [The static guides were then used to pass the distal locking screw.] Intraoperative imaging was obtained verifying satisfactory position of the hardware and reduction of the fracture. Deep tissues were closed with 0 Vicryl as were subcutaneous tissues. The skin was closed with running 4-0 subcutaneous Monocryl suture. Sterile dressings were applied. The patient was extubated and taken to recovery room in stable condition.
--- NOTE | 2022-04-04 16:02 | XR_ITS ---
WS: [id number] XR hip LT 1V wo/w pel [id number] REASON FOR EXAM: OR PICS FINDINGS: Intramedullary clement and large femoral neck nail fixation of intertrochanteric fracture. Fracture fragments and surgical appliances are in proper position and alignment. XR/XR hip LT 1V wo/w pel [id number] IMPRESSION: Intraoperative imaging demonstrating fixation of intertrochanteric fracture wit hout abnormality as above.
--- NOTE | 2022-04-04 16:22 | ANE.PACU2 ---
Inpatient post-anesthesia follow up: Airway intact: Yes Vital signs: Temperature 97.7 F Pulse Rate 77 Respiratory Rate 18 Blood Pressure 120/68 Pulse Oximetry 92 Oxygen Delivery Me thod Simple Mask Oxygen Flow Rate 8 Fraction of Inspir ed Oxygen Hydration adequate: Yes Nausea and vomiting: No Pain level: 3 Mental status: Baseline
--- NOTE | 2022-04-04 16:33 | SUR.PHASEI ---
15:55 RECEIVED PT FROM OR STAFF. PT OPENS EYES TO VOICE. AIRWAY PATENT VENTILATING WELL. NSR ON MONITOR. 16:20 ROM AND SENSATION TO LEFT FOOT. 16:25 airway suctioned with thick mucous return. 16:32 NEBULIZER TREATMENT GIVEN. LUNG SOUNDS COARSE IN BASES BILATERALLY. GOOD CHEST RISE AND FALL. DENIES PAIN.
--- NOTE | 2022-04-04 16:49 | XR_ITS ---
WS: [id number] Portable AP upright chest, 04/04/2022 Clinical Data: hypoxia Comparison: Portable chest, 04/03/2022. Findings: Bilateral patchy opacities have developed extending from both joe into the lower lobes. Th e diaphragms are flattened. The aortic arch and descending thoracic aorta show tortuosity. No nodules , masses or effusions are seen. There are surgery clips at the gastroesophageal junction. XR/XR chest 1V portable [id number] Impression: 1. Bilateral patchy hilar and lower lobe opacities consistent with pneumonia. 2. Atherosclerosis and hyperinflation.
--- NOTE | 2022-04-04 16:57 | SUR.PHASEI ---
16:50 AIRWAY SUCTIONED WITH THICK MUCOUS RETURN. PT ENCOURAGED TO TAKE DEEP BREATHS.
[2022-04-04] MEDS: budesonide 0.5 mg/2 mL Neb INHALATION (19:57)
[2022-04-04] MEDS: oxyCODONE 5 mg IR Tab/Cap PO (21:46)
--- NOTE | 2022-04-04 22:30 | PC.NURSE ---
Found patient sitting on side of bed. Oxygen off. IV out. Patient assisted to wash up. Gown & linens changed. Patient assisted to reposition in bed. Patient given call light and instructed in call light use.
[2022-04-05] VITALS (16 sets, daily range): BP systolic 104–141; BP diastolic 45–78; PULSE 73–108; RESP 16–21; TEMP 36.6–36.9; O2SAT 90–95
[2022-04-05] MEDS: ceFAZolin 1,000 MG in sodium chloride 0.9% (plus) 50 ML 100 MG IV ×2 (00:27→06:21)
[2022-04-05 05:15] LABS: Basophils % 0.2 %; Hematocrit 37.2 % (42.0-52.0); Hemoglobin 11.5 g/dL (11.7-16.6); Lymphocytes # 0.6 10^3/uL (0.8-4.8); Lymphocytes % 5.4 %; Mean Corpuscular HGB Conc 30.9 g/dL (30.0-36.0); Mean Corpuscular Hemoglobin 30.7 pg (28.0-34.0); Mean Corpuscular Volume 99.5 fl (80-94); Monocytes # 0.7 10^3/uL (0.2-0.9); Monocytes % 5.7 %; Neutrophils # 10.28 10^3/uL (1.8-7.7); Neutrophils % 88.1 %; Nucleated Red Blood Cells % 0 %; Platelet Count 151 10^3/cmm (130-400); Red Blood Count 3.74 10^6/uL (4.1-5.3); Red Cell Distribution Width 14.3 % (12.1-15.1); White Blood Count 11.7 10^3/uL (4.0-10.0)
[2022-04-05] MEDS: budesonide 0.5 mg/2 mL Neb INHALATION ×2 (08:01→21:01)
[2022-04-05] MEDS: ipratropium-albuterol 3 mL Neb INHALATION ×4 (08:02→21:00)
[2022-04-05] MEDS: multivitamin therapeutic Tablet 1 TAB PO (08:15)
[2022-04-05] MEDS: famotidine 20 mg/2 mL INJ IVP (08:15)
[2022-04-05] MEDS: oxyCODONE 5 mg IR Tab/Cap PO ×2 (08:15→14:21)
[2022-04-05] MEDS: cefTRIAXone 1,000 MG in sodium chloride 0.9% (plus) 50 ML 100 MG IV (10:03)
[2022-04-05] MEDS: enoxaparin 40 mg/0.4 mL Syringe SUBCUT (10:05)
[2022-04-05] MEDS: sodium chloride 0.9% 1,000 ML 75 ML IV (10:06)
[2022-04-05] MEDS: azithromycin 500 MG in sodium chloride 0.9% 250 ML 250 MG IV (11:16)
[2022-04-05] MEDS: morphine 4 mg/mL SDV 1 mL IVP (11:54)
--- NOTE | 2022-04-05 15:29 | PM.PN ---
Subjective Subjective: Seen this AM. On 3 L nasal cannula. He is status post surgery. Chest x-ray shows pneumonia. Vitals/I&O/Wt Last Vital Signs Temp 98.0 F 04/05/22 11:55 Pulse 92 04/05/22 15:23 Resp 18 04/05/22 15:18 BP 116/69 04/05/22 11:55 Pulse Ox 94 04/05/22 15:18 O2 Del Method 04/05/22 15:18 O2 Flow Rate 3 04/05/22 15:18 04/05/22 04/05/22 04/05/22 06:59 14:59 22:59 Intake Total 530 / 2510 2535 / 2535 Output Total 100 / 225 Balance 430 / 2285 2535 / 2535 Weight last 48 hrs Weight 49.351 kg Weight 45.132 kg Physical Exam Narrative: General: Alert oriented x3, on 2 L nasal cannula at this time. HEENT: Normocephalic, atraumatic, EOMI, breathing comfortably No acute distress Cardio: Regular rate rhythm, normal S1-S2, no murmurs Respiratory: Diminished air entry bilaterally, no rhonchi present at this time. However there is mild wheezing present diffusely. GI: Abdomen soft, nontender, nondistended, bowel sounds + Behavior: Appropriate and cooperative Extremities: No lower extremity edema bilaterally, mild tenderness to palpation at left hip area. Data : 04/05/22 04:57 04/04/22 06:19 A&P Assessment and plan (1) Intertrochanteric fracture of left hip: Status: Acute (2) Closed intertrochanteric fracture of left hip: Status: Acute (3) COPD (chronic obstructive pulmonary disease): Status: Acute (4) Diverticulosis: Status: Chronic Plan #Left proximal femur fracture #COPD centrilobular emphysema #Diverticulosis ? Orthopedic surgery consulted. He had surgery done on 04/04. ORIF with intramedullary device. ? DuoNeb every 6 hour as needed -Patient does not follow-up with a immigration patrol inspector. -We will need to do home oxygen evaluation at discharge and set him up with home oxygen. Most likely patient will qualify. I will also set him up with albuterol, Symbicort, Spiriva. ? We will refer to pulmonology at discharge for formal PFTs and further management -Order incentive spirometer postsurgery. -Patient agreeable to leave with oxygen at discharge. ? Started on ceftriaxone and azithromycin ? Physical therapy occupational therapy Full code DVT prophylaxis: Heparin SQ twice daily Attestations Medical Necessity Statement*: Patient is status postsurgery. Physical therapy and OPT supposed to be done. Continue IV antibiotics for his pneumonia. 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
[2022-04-06] VITALS (11 sets, daily range): BP systolic 115–149; BP diastolic 56–68; PULSE 75–95; RESP 18–24; TEMP 36.4–37.1; O2SAT 90–97
[2022-04-06 05:50] LABS: Basophils % 0.2 %; Eosinophils # 0.1 10^3/uL (0.0-0.8); Eosinophils % 0.5 %; Hematocrit 35.2 % (42.0-52.0); Hemoglobin 10.9 g/dL (11.7-16.6); Lymphocytes # 0.6 10^3/uL (0.8-4.8); Lymphocytes % 5.4 %; Mean Corpuscular Hemoglobin 30.8 pg (28.0-34.0); Mean Corpuscular Volume 99.4 fl (80-94); Mean Platelet Volume 11.8 fL (7.4-10.4); Monocytes # 0.8 10^3/uL (0.2-0.9); Neutrophils # 9.68 10^3/uL (1.8-7.7); Neutrophils % 86.5 %; Nucleated Red Blood Cells % 0 %; Platelet Count 155 10^3/cmm (130-400); Red Blood Count 3.54 10^6/uL (4.1-5.3); Red Cell Distribution Width 14.4 % (12.1-15.1); White Blood Count 11.2 10^3/uL (4.0-10.0)
[2022-04-06 06:15] LABS: Blood Urea Nitrogen 32 mg/dL (8-23); Calcium 8.5 mg/dL (8.5-10.5); Carbon Dioxide 21 mmol/L (22-29); Chloride 108 mmol/L (98-107); Glucose 94 mg/dL (65-115); Magnesium 1.9 mg/dL (1.7-2.3); Osmolality Calculated 293 mOsm/kg (285-295); Sodium 138 mmol/L (136-145)
[2022-04-06 06:20] LABS: Anion Gap 13.6 (5-19); Potassium 4.6 mmol/L (3.5-5.1)
[2022-04-06] MEDS: ipratropium-albuterol 3 mL Neb INHALATION ×4 (07:43→20:14)
[2022-04-06] MEDS: budesonide 0.5 mg/2 mL Neb INHALATION ×2 (07:43→20:14)
[2022-04-06] MEDS: acetaminophen 325 mg Tablet 650 MG PO (08:22)
[2022-04-06] MEDS: multivitamin therapeutic Tablet 1 TAB PO (08:22)
[2022-04-06] MEDS: famotidine 20 mg/2 mL INJ IVP ×2 (08:22→20:57)
[2022-04-06] MEDS: azithromycin 500 MG in sodium chloride 0.9% 250 ML 250 MG IV (08:44)
[2022-04-06] MEDS: cefTRIAXone 1,000 MG in sodium chloride 0.9% (plus) 50 ML 100 MG IV (10:36)
[2022-04-06] MEDS: enoxaparin 40 mg/0.4 mL Syringe SUBCUT (10:37)
--- NOTE | 2022-04-06 11:11 | P.PN_ITS ---
Subjective Subjective: Patient requiring 4 L nasal cannula. He says he is not really interested in rehab but will go if he has to. He is coughing a little bit as well. He will be working with physical therapy. Vitals/I&O/Wt Last Vital Signs Temp 98.6 F 04/06/22 08:00 Pulse 83 04/06/22 08:00 Resp 24 H 04/06/22 08:00 BP 149/67 04/06/22 08:00 Pulse Ox 97 04/06/22 08:00 O2 Del Method 04/06/22 08:00 O2 Flow Rate 4.5 04/06/22 08:00 04/05/22 04/06/22 04/06/22 22:59 06:59 14:59 Intake Total 926.25 / 3461.25 700 / 4161.25 604 / 604 Output Total 600 / 600 500 / 1100 Balance 326.25 / 2861.25 200 / 3061.25 604 / 604 Weight last 48 hrs Weight 49.124 kg Weight 49.351 kg Physical Exam Narrative: General: Alert oriented x3, on 4 L nasal cannula at this time. HEENT: Normocephalic, atraumatic, EOMI, breathing comfortably No acute distress Cardio: Regular rate rhythm, normal S1-S2, no murmurs Respiratory: Diminished air entry bilaterally, no rhonchi present at this time. However there is mild wheezing present diffusely. GI: Abdomen soft, nontender, nondistended, bowel sounds + Behavior: Appropriate and cooperative Extremities: No lower extremity edema bilaterally, mild tenderness to palpation at left hip area. Data : 04/06/22 05:26 04/06/22 05:26 A&P Assessment and plan (1) Intertrochanteric fracture of left hip: Status: Acute (2) Closed intertrochanteric fracture of left hip: Status: Acute (3) COPD (chronic obstructive pulmonary disease): Status: Acute (4) Diverticulosis: Status: Chronic Plan #Left proximal femur fracture POD 2 #COPD centrilobular emphysema #Diverticulosis ? Orthopedic surgery consulted. He had surgery done on 04/04. ORIF with intrame dullary device. ? DuoNeb every 6 hour as needed -Patient does not follow-up with a client services assistant. -We will need to do home oxygen evaluation at discharge and set him up with home oxygen. Most likely patient will qualify. I will also set him up with albuterol, Symbicort, Spiriva. ? We will refer to pulmonology at discharge for formal PFTs and further management -Order incentive spirometer postsurgery. -Patient agreeable to leave with oxygen at discharge. ? Continue on ceftriaxone and azithromycin ? Physical therapy occupational therapy - Patient will require oxygen at discharge Full code DVT prophylaxis: Heparin SQ twice daily Attestations Medical Necessity Statement*: Patient is status postsurgery. Physical therapy and OPT supposed to be done. Continue IV antibiotics for his pneumonia. Coding Level of Care Code Acute Domestic Maid for [facility] Fwd Diagnoses Intertrochanteric fracture of left hip S72.142A Closed intertrochanteric fracture of left hip S72.142A COPD (chronic obstructive pulmonary disease) J44.9 Diverticulosis K57.90
--- NOTE | 2022-04-06 11:41 | PC.SOCIAL ---
IMM Update pg 2 of IMM updated and reviewed w/ patient. Copy provided and Copy dated, initialed and placed in chart.
--- NOTE | 2022-04-06 13:58 | PC.NURSE ---
Pt assisted to the bathroom from chair. Pt is a maximum assist to help him get up from a sitting position. he ambulated w/ a walker pretty good to the bathroom.
[2022-04-07] VITALS (14 sets, daily range): BP systolic 108–160; BP diastolic 61–74; PULSE 74–119; RESP 16–22; TEMP 36.2–37.1; O2SAT 90–94
[2022-04-07 04:06] LABS: Basophils % 0.1 %; Eosinophils # 0.1 10^3/uL (0.0-0.8); Eosinophils % 0.6 %; Hematocrit 30.8 % (42.0-52.0); Hemoglobin 10.2 g/dL (11.7-16.6); Lymphocytes # 0.8 10^3/uL (0.8-4.8); Lymphocytes % 7.6 %; Mean Corpuscular HGB Conc 33.1 g/dL (30.0-36.0); Mean Corpuscular Hemoglobin 31.3 pg (28.0-34.0); Mean Corpuscular Volume 94.5 fl (80-94); Mean Platelet Volume 11.2 fL (7.4-10.4); Monocytes # 0.8 10^3/uL (0.2-0.9); Monocytes % 8.1 %; Neutrophils # 8.42 10^3/uL (1.8-7.7); Neutrophils % 83.1 %; Nucleated Red Blood Cells % 0 %; Platelet Count 184 10^3/cmm (130-400); Red Blood Count 3.26 10^6/uL (4.1-5.3); Red Cell Distribution Width 14.3 % (12.1-15.1); White Blood Count 10.1 10^3/uL (4.0-10.0)
[2022-04-07 04:29] LABS: Anion Gap 14.6 (5-19); Blood Urea Nitrogen 28 mg/dL (8-23); Calcium 8.4 mg/dL (8.5-10.5); Carbon Dioxide 21 mmol/L (22-29); Chloride 108 mmol/L (98-107); Glucose 122 mg/dL (65-115); Osmolality Calculated 297 mOsm/kg (285-295); Potassium 3.6 mmol/L (3.5-5.1); Sodium 140 mmol/L (136-145)
[2022-04-07] MEDS: ipratropium-albuterol 3 mL Neb INHALATION ×4 (07:26→19:56)
[2022-04-07] MEDS: budesonide 0.5 mg/2 mL Neb INHALATION ×2 (07:26→19:56)
--- NOTE | 2022-04-07 08:23 | XRR_ITS ---
PROCEDURE INFORMATION: Exam: XR Chest Exam date and time: 04/07/2022 2:19 PM Age: 81 years old Clinical indication: Shortness of breath TECHNIQUE: Imaging protocol: Radiologic exam of the chest. Views: 1 view. COMPARISON: CR XR chest 1V portable [id number] 04/04/2022 6:00 PM FINDINGS: Lungs: There are worsened opacities in the lower lungs bilaterally, more prominent on the right. Correlate with clinical information regarding pneumonitis versus edema. The lungs appear hyperinflated, likely emphysematous. Pleural spaces: Small right pleural effusion. Heart/Mediastinum: Unremarkable. No cardiomegaly. Bones/joints: Unremarkable. XR/XR chest 1V portable [id number] IMPRESSION: 1. Worsened opacities in the lower lungs bilaterally, more prominent on the right. Correlate with clinical information regarding pneumonitis versus edema. 2. Small right pleural effusion.
[2022-04-07] MEDS: multivitamin therapeutic Tablet 1 TAB PO (09:01)
[2022-04-07] MEDS: famotidine 20 mg/2 mL INJ IVP ×2 (09:01→20:29)
[2022-04-07] MEDS: cefTRIAXone 1,000 MG in sodium chloride 0.9% (plus) 50 ML 100 MG IV (09:05)
[2022-04-07] MEDS: azithromycin 500 MG in sodium chloride 0.9% 250 ML 250 MG IV (09:50)
[2022-04-07] MEDS: enoxaparin 40 mg/0.4 mL Syringe SUBCUT (09:50)
[2022-04-07] MEDS: fixodent 39 gm Tube 1 APPLIC DENTAL (10:59)
--- NOTE | 2022-04-07 13:31 | P.PN_ITS ---
Subjective Subjective: Seen this morning. He is on 3 L nasal cannula. Improving. Patient agreeable to go to [facility] for rehab tomorrow. No acute events overnight. Vitals/I&O/Wt Last Vital Signs Temp 97.9 F 04/07/22 11:58 Pulse 80 04/07/22 11:58 Resp 18 04/07/22 11:58 BP 138/68 04/07/22 11:58 Pulse Ox 92 04/07/22 11:58 O2 Del Method 04/07/22 11:58 O2 Flow Rate 3 04/07/22 11:58 04/06/22 04/07/22 04/07/22 22:59 06:59 14:59 Intake Total 952 / 1828 240 / 2068 660 / 660 Output Total 900 / 900 150 / 1050 Balance 52 / 928 90 / 1018 660 / 660 Weight last 48 hrs Weight 49.124 kg Physical Exam Narrative: General: Alert oriented x3, on3 L nasal cannula at this time. HEENT: Normocephalic, atraumatic, EOMI, breathing comfortably No acute distress Cardio: Regular rate rhythm, normal S1-S2, no murmurs Respiratory: Diminished air entry bilaterally, no rhonchi present at this time. However there is mild wheezing present diffusely. GI: Abdomen soft, nontender, nondistended, bowel sounds + Behavior: Appropriate and cooperative Extremities: No lower extremity edema bilaterally, mild tenderness to palpation at left hip area. Data : 04/07/22 03:36 04/07/22 03:36 Micro: Microbiology 04/05/22 18:01 MRSA Culture - Final Nose A&P Assessment and plan (1) Intertrochanteric fracture of left hip: Status: Acute (2) Closed intertrochanteric fracture of left hip: Status: Acute (3) COPD (chronic obstructive pulmonary disease): Status: Acute (4) Diverticulosis: Status: Chronic Plan #Left proximal femur fracture POD3 #COPD centrilobular emphysema #Diverticulosis ? Orthopedic surgery consulted. He had surgery done on 04/04. ORIF with intramedullary device. ? DuoNeb every 6 hour as needed -Patient does not follow-up with a pinion polisher. - I will also set him up with albuterol, Symbicort, Spiriva. ? We will refer to pulmonology at discharge for formal PFTs and further management -Order incentive spirometer postsurgery. -Patient agreeable to leave with oxygen at discharge. -Home O2 eval at discharge. ? Continue on ceftriaxone and azithromycin ? Physical therapy occupational therapy Switch to Augmentin at discharge for 10 more days. ? Lovenox 40 subcu for DVT prophylaxis. Continue for 30 days. Full code DVT prophylaxis: Lovenox Attestations Medical Necessity Statement*: Patient is status postsurgery. Physical therapy and OPT supposed to be done. Continue IV antibiotics for his pneumonia. Coding Level of Care Code Acute Features Editor for [facility] Fwd Diagnoses Intertrochanteric fracture of left hip S72.142A Closed intertrochanteric fracture of left hip S72.142A COPD (chronic obstructive pulmonary disease) J44.9 Diverticulosis K57.90
[2022-04-07] MEDS: FUROsemide 10 mg/mL SDV 4mL 40 MG IVP (17:18)
--- NOTE | 2022-04-07 18:42 | PC.NURSE ---
Report given to Lizzeth MOHR at this time.
[2022-04-08] VITALS (148 sets, daily range): BP systolic 87–146; BP diastolic 41–92; PULSE 61–156; RESP 12–39; TEMP 36.7–36.9; O2SAT 74–95
[2022-04-08 00:57] LABS: SARS Covid-2 Antigen Negative (Negative)
--- NOTE | 2022-04-08 04:20 | PC.NURSE ---
Spoke with regarding patient was found to be tachycardic with vitals signs. Patient was not on telemetry at the time. Nurse applied telemetry and patients rate was [id number], possibly a sinus tachycardia. ordered EKG and telemetry.
--- NOTE | 2022-04-08 04:27 | ECG_ITS ---
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 Measurements Intervals [place] Rate: 133 P: NE: QRS: 40 QRSD: 90 T: 68 QT: 286 QTc: 425 Interpretive Statements ATRIAL FIBRILLATION WITH RAPID VENTRICULAR RESPONSE WITH ABERRANT CONDUCTION OR VENTRICULAR PREMATURE COMPLEXES MINIMAL ST DEPRESSION [0.025+ mV ST DEPRESSION] ABNORMAL RHYTHM ECG Compared to ECG 04/03/2022 15:54:38 Ventricular premature complex(es) now present Aberrant conduction of supraventricular beat(s) now present ST (T wave) deviation now present Sinus rhythm no longer present Myocardial infarct finding no longer present Electronically Signed On 04-08-2022 7:39:39 CDT by Owen Hastings M.D. [id number]
--- NOTE | 2022-04-08 04:39 | PC.NURSE ---
Called and spoke with Dr Oleary regarding patients EKG results, afib with RVR. ordered labs and One time metoprolol 5mg IV push. wants call back with patients response to metoprolol.
[2022-04-08] MEDS: metoprolol tartrate 1 mg/1 mL SDV 5 mL 5 MG IVP (04:47)
--- NOTE | 2022-04-08 04:49 | USCV_ITS ---
KleberThaddeus Age: 81 Gender: M : 1940 Exam Date: 04/08/2022 08:05 Ordering Phys: Willam Oleary MD Technologist: Zack Gruber Exam Location: [facility] [place] Indication: a fib BP: 111 / 76 HR: Rhythm: Atrial fibrillation Technical Quality: Technically difficult study MEASUREMENTS (Male / Female) Normal Values 2D ECHO IVC Diameter 1.5 cm DOPPLER TR Peak Velocity 199.3 cm/s TR Peak Gradient 15.9 mmHg TR Mean Velocity 149.7 cm/s TR Mean Gradient 9.5 mmHg TR Velocity Time Integral 46.1 cm Right Atrial Pressure 3.0 mmHg Pulmonary Artery Systolic Pressu 18.9 mmHg FINDINGS Left Ventricle Technically very limited study since only subcostal views were obtained. Possibly normal LV size with borderline low ejection fraction. Right Ventricle Possibly normal RV size and ejection fraction Right Atrium Appears to be mildly dilated Left Atrium Appears to be mildly dilated Mitral Valve Mild-moderate mitral valve regurgitation. Aortic Valve Could not be visualized well Tricuspid Valve Mild tricuspid valve regurgitation. Pulmonic Valve Pulmonic valve not well visualized. Pericardium No pericardial effusion. Aorta The aorta was not well visualized IVC Normal inferior vena cava. CONCLUSIONS Technically very limited study since only subcostal views were obtained. Possibly normal LV size with borderline low ejection fraction. Possibly normal RV size and ejection fraction. Both atria appear to be mildly dilated. Mild-moderate mitral valve regurgitation. Mild tricuspid valve regurgitation. There is no pericardial effusion. There are no intracardiac masses. No similar previous studies are available for comparison Dr Jarvis Benedict MD [facility] (Electronically Signed) Final Date: 08 April 2022 23:06 S
[2022-04-08 05:27] LABS: Basophils % 0.1 %; Eosinophils # 0.1 10^3/uL (0.0-0.8); Eosinophils % 0.9 %; Hematocrit 33.2 % (42.0-52.0); Lymphocytes # 0.7 10^3/uL (0.8-4.8); Lymphocytes % 6.7 %; Mean Corpuscular HGB Conc 33.1 g/dL (30.0-36.0); Mean Corpuscular Hemoglobin 30.7 pg (28.0-34.0); Mean Corpuscular Volume 92.7 fl (80-94); Mean Platelet Volume 11.4 fL (7.4-10.4); Neutrophils # 8.18 10^3/uL (1.8-7.7); Nucleated Red Blood Cells % 0 %; Platelet Count 188 10^3/cmm (130-400); Red Blood Count 3.58 10^6/uL (4.1-5.3); Red Cell Distribution Width 14.1 % (12.1-15.1)
[2022-04-08] MEDS: metoprolol tartrate 25 mg Tablet PO ×4 (05:28→20:44)
[2022-04-08] MEDS: enoxaparin 60 mg/0.6 mL Syringe 50 MG SUBCUT ×2 (05:29→16:45)
[2022-04-08 05:46] LABS: Troponin(5th) Baseline 14 ng/L (0-15)
[2022-04-08 05:56] LABS: Alanine Aminotransferase 11 U/L (0-41); Albumin Level 2.4 g/dL (3.5-5.2); Alkaline Phosphatase 89 U/L (40-130); Blood Urea Nitrogen 23 mg/dL (8-23); Calcium 8.3 mg/dL (8.5-10.5); Carbon Dioxide 26 mmol/L (22-29); Chloride 101 mmol/L (98-107); Globulin 3.2 g/dL (1.3-4.6); Glucose 124 mg/dL (65-115); Magnesium 1.7 mg/dL (1.7-2.3); Osmolality Calculated 287 mOsm/kg (285-295); Sodium 136 mmol/L (136-145); Thyroid Stimulating Hormone 2.03 uIU/mL (0.27-4.20); Total Bilirubin 0.7 mg/dL (0.15-1.2); Total Protein 5.6 g/dL (6.6-8.7)
[2022-04-08 05:58] LABS: Anion Gap 12.6 (5-19); Potassium 3.6 mmol/L (3.5-5.1)
[2022-04-08 05:59] LABS: Aspartate Amino Transferase 20 U/L (0-40)
[2022-04-08] MEDS: budesonide 0.5 mg/2 mL Neb INHALATION (07:51)
[2022-04-08] MEDS: ipratropium-albuterol 3 mL Neb INHALATION ×2 (07:51→13:00)
[2022-04-08 08:09] LABS: Troponin 5 2HR 14.79 ng/L (0-15)
[2022-04-08 08:19] LABS: Troponin 5 2HR Delta 0.79 ABS# (0-10)
[2022-04-08] MEDS: multivitamin therapeutic Tablet 1 TAB PO (08:33)
[2022-04-08] MEDS: potassium chloride ER 20 mEq Tablet 40 MEQ PO (08:33)
[2022-04-08] MEDS: magnesium sulfate premix 2 GM/50 ML PIGGYBACK IV (08:49)
[2022-04-08] MEDS: famotidine 20 mg/2 mL INJ IVP ×2 (08:49→20:57)
[2022-04-08] MEDS: dilTIAZem 5 mg/mL SDV 5 mL 10 MG IVP (09:49)
[2022-04-08] MEDS: sodium chloride 0.9% 250 ML 999 ML IV ×2 (09:54→11:41)
[2022-04-08] MEDS: cefTRIAXone 1,000 MG in sodium chloride 0.9% (plus) 50 ML 100 MG IV (10:15)
--- NOTE | 2022-04-08 10:23 | ECG_ITS ---
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 Measurements Intervals [place] Rate: 104 P: TN: QRS: 54 QRSD: 98 T: 68 QT: 316 QTc: 417 Interpretive Statements ATRIAL FIBRILLATION WITH RAPID VENTRICULAR RESPONSE WITH ABERRANT CONDUCTION OR VENTRICULAR PREMATURE COMPLEXES ABNORMAL RHYTHM ECG Compared to ECG 04/08/2022 04:27:41 ST (T wave) deviation no longer present Electronically Signed On 04-08-2022 18:35:19 CDT by Vitaly Gonzales M.D. [id number]
[2022-04-08] MEDS: azithromycin 500 MG in sodium chloride 0.9% 250 ML 250 MG IV (10:52)
[2022-04-08 11:43] LABS: Troponin 5 6HR 15.11 ng/L (0-15); Troponin 5 6HR Delta 1.11 ng/L (0-12)
--- NOTE | 2022-04-08 12:21 | CT_ITS ---
WS: [id number] CTA OF THE CHEST WITH PULMONARY EMBOLISM PROTOCOL TECHNIQUE: High-resolution contrast enhanced CTA of the chest with coronal and sagittal reformatted i mages with pulmonary embolism protocol. MIP images are also reviewed. CLINICAL INFORMATION: new atrial fibrillation, hypoxia COMPARISON: None. DLP: 207.[address] scans at [facility] use at least one of these dose optimization techniques: automated e xposure control; mA and/or kV adjustment per patient size (includes targeted exams where dose is matc hed to clinical indication); or iterative reconstruction. FINDINGS: Proximal main pulmonary arteries are normal. Small filling defect in the RIGHT upper lobe subsegmenta l pulmonary artery consistent with pulmonary embolus. Additional smaller defects consistent with pulmonary emboli in the RIGHT middle and RIGHT lower lobes . Advanced chronic emphysematous changes. Tiny bilateral pleural effusions. Patchy infiltrates with air space consolidation lung bases consistent with pneumonia. Normal caliber thoracic aorta. Aortic calci fication. No axillary lymphadenopathy. Cholecystectomy clips. Partially visualized LEFT renal cyst. CT/CT angio chest PE protcl [id number] IMPRESSION: 1. Several small filling defects in the subsegmental pulmonary arteries in the RIGHT lung compatible with pulmonary embolus. 2. Proximal main pulmonary arteries are normal. 3. Tiny bilateral pleural effusions with airspace infiltrates in the lung base s consistent with pneumonia. Attempted notification Tonya Jiang MD at 04/08/2022 1:42 PM.
--- NOTE | 2022-04-08 12:22 | PC.NURSE ---
Notified Dr Jiang that second bolus has been completed and his BP is 108/62 following the administration on the second bolus with an elevated HR. Dr Jiang is ordering CTA to rule out PE STAT. Will continue to monitor the pt.
[2022-04-08] MEDS: iohexol 350 mg/mL 100 mL Btl IV (12:53)
--- NOTE | 2022-04-08 13:49 | ECG_ITS ---
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 Measurements Intervals [place] Rate: 115 P: FL: QRS: 69 QRSD: 85 T: 72 QT: 304 QTc: 421 Interpretive Statements ATRIAL FIBRILLATION WITH RAPID VENTRICULAR RESPONSE LOW QRS VOLTAGE IN EXTREMITY LEADS [QRS DEFLECTION < 0.5 mV IN LIMB LEADS] ABNORMAL RHYTHM ECG Compared to ECG 04/08/2022 10:23:54 Low QRS voltage now present Ventricular premature complex(es) no longer present Aberrant conduction of supraventricular beat(s) no longer present Electronically Signed On 04-08-2022 18:33:02 CDT by Vitaly Gonzales M.D. [id number]
--- NOTE | 2022-04-08 13:51 | USCV_ITS ---
KleberThaddeus Age: 81 Gender: M : 1940 Exam Date: 04/08/2022 15:15 Ordering Phys: Tonya Jiang MD Technologist: ERIKA MOORE Exam Location: [facility] Indication: r/o DVT HISTORY: No swelling or pain noted in either leg. PROCEDURES: Venous duplex imaging was performed in bilateral lower extremities. The following venous structures were evaluated: common femoral vein, profunda vein, proximal portion of the greater saphenous vein, superficial femoral vein, and the popliteal vein. In addition, the posterior tibial and peroneal trunk were evaluated. FINDINGS: Normal 2-D Doppler and augmentation and compressibility throughout the lower extremity venous structures. Additional imaging through the proximal calf veins also reveals no thrombus. Limited evaluation of the greater saphenous vein is patent with no thrombus. CONCLUSIONS No DVT bilateral lower extremities. Technically difficult exam. Dr. Jazmine Cao DO (Electronically Signed) Final Date: 08 April 2022 16:22 S
--- NOTE | 2022-04-08 14:24 | PC.OT ---
OT TREATMENT HELD DUE TO TRANSFER TO ICU. WILL ATTEMPT AGAIN TOMORROW.
--- NOTE | 2022-04-08 15:21 | PC.SOCIAL ---
IMM Update pg 2 of IMM updated and reviewed w/ patient. Copy provided and Copy in chart dated, timed and initialed.
--- NOTE | 2022-04-08 15:22 | PC.NURSE ---
Report given to ICU Nurse at this time. Nurse had no questions.
[2022-04-08 15:52] LABS: Adenovirus Not Detected (NOT DETECT); Chlamydia Pneumoniae Not Detected (NOT DETECT); Coronavirus 229E,HKU1,NL63,OC4 Not Detected (NOT DETECT); Human Metapneumovirus Not Detected (NOT DETECT); Human Rhinovirus/Enterovirus Not Detected (NOT DETECT); Influenza A Not Detected (NOT DETECT); Influenza A H1 Not Detected (NOT DETECT); Influenza A H1-2009 Not Detected (NOT DETECT); Influenza A H3 Not Detected (NOT DETECT); Influenza B Not Detected (NOT DETECT); Mycoplasma Pneumoniae Not Detected (NOT DETECT); Parainfluenza Virus Type 1 Not Detected (NOT DETECT); Parainfluenza Virus Type 2 Not Detected (NOT DETECT); Parainfluenza Virus Type 3 Not Detected (NOT DETECT); Parainfluenza Virus Type 4 Not Detected (NOT DETECT); Respiratory Syncytial Virus A Not Detected (NOT DETECT); Respiratory Syncytial Virus B Not Detected (NOT DETECT); SARS-COV-2 Not Detected (NOT DETECT)
[2022-04-08] MEDS: sennosides-docusate Tablet 1 TAB PO (16:45)
--- NOTE | 2022-04-08 19:53 | XRR_ITS ---
PROCEDURE INFORMATION: Exam: XR Chest Exam date and time: 04/08/2022 8:06 PM Age: 81 years old Clinical indication: Dyspnea; Additional info: SOB TECHNIQUE: Imaging protocol: Radiologic exam of the chest. Views: 1 view. COMPARISON: CR (CHEST, ) 04/07/2022 2:19 PM FINDINGS: Lungs: Bilateral hilar to lobe airspace infiltrates, similar to prior exam. Emphysematous changes. Pleural spaces: Unremarkable. No pleural effusion. No pneumothorax. Heart/Mediastinum: Unremarkable. No cardiomegaly. Bones/joints: Unremarkable. XR/XR chest 1V portable [id number] IMPRESSION: 1. Bilateral hilar to lobe airspace infiltrates, similar to prior exam. 2. Emphysematous changes.
--- NOTE | 2022-04-08 20:08 | PC.PHAR ---
Pharmacokinetic dosing service Date: 04/08/22 Time: 2008 Objective: Patient: Thaddeus Shahid Floor: ICU-1 Age: 81 yo Serum creatinine: 0.6 mg/dL Height: 74.0 Inches Weight (kg): 49.124 Diagnosis: Relevant medical/social history: Cultures and sensitivities: Other labs: Assessment: IBW (kg): 82.20 Dosing wt(kg): 49.124 Estimated Creatinine clearance (ml/min): 68.2 CRCL method: Cockcroft and Gault using ibw(default). Drug selected: Vancomycin Loading dose (mg): 0 Vd (liters): 44.2 (factor used: 0.9 L/kg) Sergei (hr-1): 0.061 Half life (hrs): 11.36 Recommended dose: 750 mg Interval: 12 hrs Infusion time (hrs): 1.5 Predicted peak (mcg/mL): 31.2 Predicted trough (mcg/mL): 16.44 Total body weight is being used for vancomycin dosing. Renal function is stable [ ] /unstable [ ] Recommendations: Give Vancomycin 750 mg q 12 hrs with an expected Cpeak of 31.2 mcg/ml and an expected Ctrough of 16.44 mcg/ml Renal dosing of other antibiotics (review renal dosing of other medications and list guidelines here): Thank you for the consult, will continue to follow. Signature: Ashlyn Chacko [facility]
[2022-04-08 20:37] LABS: Alanine Aminotransferase 12 U/L (0-41); Albumin Level 2.3 g/dL (3.5-5.2); Alkaline Phosphatase 88 U/L (40-130); Aspartate Amino Transferase 18 U/L (0-40); Blood Urea Nitrogen 24 mg/dL (8-23); Calcium 8.3 mg/dL (8.5-10.5); Carbon Dioxide 23 mmol/L (22-29); Chloride 104 mmol/L (98-107); Globulin 3.1 g/dL (1.3-4.6); Glucose 134 mg/dL (65-115); Osmolality Calculated 288 mOsm/kg (285-295); Phosphorus 2.6 mg/dL (2.5-4.5); Sodium 136 mmol/L (136-145); Total Bilirubin 0.6 mg/dL (0.15-1.2); Total Protein 5.4 g/dL (6.6-8.7)
[2022-04-08] MEDS: vancomycin 750 MG in sodium chloride 0.9% 250 ML 250 MG IV (20:42)
[2022-04-08 20:47] LABS: Anion Gap 13.1 (5-19); Potassium 4.1 mmol/L (3.5-5.1)
[2022-04-08] MEDS: piperacillin-tazobactam 3.375 GM in sodium chloride 0.9% (plus) 50 ML IV (22:55)
[2022-04-09] VITALS (176 sets, daily range): BP systolic 85–147; BP diastolic 36–104; PULSE 52–150; RESP 13–42; TEMP 36.6–38.1; O2SAT 77–99
[2022-04-09] MEDS: piperacillin-tazobactam 3.375 GM in sodium chloride 0.9% (plus) 50 ML IV ×3 (05:18→22:59)
[2022-04-09] MEDS: enoxaparin 60 mg/0.6 mL Syringe 50 MG SUBCUT ×2 (05:27→17:35)
[2022-04-09] MEDS: ipratropium-albuterol 3 mL Neb INHALATION ×4 (07:59→20:18)
[2022-04-09] MEDS: budesonide 0.5 mg/2 mL Neb INHALATION ×2 (07:59→20:17)
[2022-04-09] MEDS: sennosides-docusate Tablet 1 TAB PO ×2 (08:38→17:35)
[2022-04-09] MEDS: famotidine 20 mg/2 mL INJ IVP ×2 (08:38→20:38)
[2022-04-09] MEDS: multivitamin therapeutic Tablet 1 TAB PO (08:39)
[2022-04-09] MEDS: polyethylene glycol 3350 Pkt 17 gm PO (08:39)
[2022-04-09] MEDS: vancomycin 750 MG in sodium chloride 0.9% 250 ML 250 MG IV ×2 (08:42→20:37)
--- NOTE | 2022-04-09 09:13 | PC.NURSE ---
Rounded with Dr. Jiang. Reviewed vital signs and medications. Orders to hold PO metoprolol, turn off Cardizem drip, give Amio bolus and initiate Amio drip per protocol.
--- NOTE | 2022-04-09 13:07 | P.PN_ITS ---
Subjective Subjective: Seen this morning. Patient is sitting comfortably in bed however slightly tachypneic with respiratory rate 25-30. His nasal cannula keeps falling out of his nose. Once the cannula goes back and his respiratory rate improves. Educated the patient to keep that in. He was following a crossword p uzzle when I saw him. Heart rate has been 80s to 140 range at rest, rhythm still atrial fibrillation. Blood pressure was okay early this morning but throughout the night and now is on the lower side. Cardizem drip has been stopped. Amnio bolus to be ordered. He also had a bradycardic episode of 39 overnight. Patient's nurse [place] at bedside. Patient states his [id number] will probably be coming today to see him. She was also here yesterday evening. CTA chest did show bilateral small peripheral pulmonary embolisms, no right heart strain. Vitals/I&O/Wt Last Vital Signs Temp 97.8 F 04/09/22 07:00 Pulse 72 04/09/22 11:15 Resp 27 H 04/09/22 11:15 BP 113/61 04/09/22 11:15 Pulse Ox 99 04/09/22 11:15 O2 Del Method 04/09/22 11:11 O2 Flow Rate 3 04/09/22 11:11 04/08/22 04/09/22 04/09/22 22:59 06:59 14:59 Intake Total 400 / 1730 148.083 / 1878.083 622.708 / 622.708 Output Total 100 / 100 200 / 300 200 / 200 Balance 300 / 1630 -51.917 / 1578.083 422.708 / 422.708 Physical Exam Narrative: General: Alert oriented x3, on3 L nasal cannula at this time. Cachectic, temporal wasting HEENT: Normocephalic, atraumatic, EOMI, breathing comfortably No acute distress Cardio: Regular rate rhythm, normal S1-S2, no murmurs Respiratory: Diminished air entry bilaterally, no rhonchi present at this time. However there is mild wheezing present diffusely. GI: Abdomen soft, nontender, nondistended, bowel sounds + Behavior: Appropriate and cooperative Extremities: No lower extremity edema bilaterally, dressing intact. Data : 04/08/22 05:15 04/08/22 20:09 A&P Assessment and plan (1) Intertrochanteric fracture of left hip: Status: Acute (2) Closed intertrochanteric fracture of left hip: Status: Acute (3) COPD (chronic obstructive pulmonary disease): Status: Acute (4) Diverticulosis: Status: Chronic Plan #Acute bilateral small pulmonary embolism peripherally, no right heart strain #Atrial fibrillation with RVR #Mild biatrial enlargement #Left proximal femur fracture POD5 #COPD centrilobular emphysema #Diverticulosis ? Orthopedic surgery consulted. He had surgery done on 04/04. ORIF with intramedullary device. ? DuoNeb every 6 hour as needed -Patient does not follow-up with a verification specialist. - I will also set him up with albuterol, Symbicort, Spiriva. ? We will refer to pulmonology at discharge for formal PFTs and further management -Order incentive spirometer postsurgery. -Patient agreeable to leave with oxygen at discharge. -Home O2 eval at discharge. ? Patient does have dense consolidations on CT at bases. Continue vancomycin and Zosyn ? Patient is status post metoprolol IV, Cardizem push, Cardizem drip, oral metoprolol. Remains in A. fib with RVR with rates up to 140s to 150. ? Due to borderline blood pressures we will hold all of the above and give amnio bolus and started amiodarone drip at this time. Patient educated about the stroke risk if he does convert to sinus rhythm with amiodarone. He is okay with trying it. Unsure if this is paroxysmal A. fib versus permanent but patient does state that he has had an abnormal heart rhythm in the past but he never knew what it was. He did not see a doctor for anything about it. He says it came in went on its own. But for the last few years he has not had trouble. ? Patient does not follow-up with a primary care doctor. He states this has been a few years since he last saw someone. ? Patient's antibiotics were started on 04/05. It was ceftriaxone and azithromycin. On 04/08 he was switched to vancomycin and Zosyn. -CTA did show pulmonary embolism. Continue full dose Lovenox at this time switch to Eliquis at discharge. Patient will need 3 months of anticoagulation since I believe this was a provoked PE due to his hip fracture. ? Physical therapy occupational therapy -Continue to monitor heart rate on telemetry. ? Home oxygen evaluation at discharge Full code DVT prophylaxis: Lovenox Attestations Medical Necessity Statement*: Patient will need to be monitored in cardiac stepdown unit on telemetry. Continue amiodarone drip. Time Spent in Patient Care: 40 Coding Level of Care Code Acute Strip Deburrer for [facility] Antionetted Diagnoses Intertrochanteric fracture of left hip S72.142A Closed intertrochanteric fracture of left hip S72.142A COPD (chronic obstructive pulmonary disease) J44.9 Diverticulosis K57.90
[2022-04-09] MEDS: metoprolol tartrate 25 mg Tablet PO (20:38)
[2022-04-10] VITALS (144 sets, daily range): BP systolic 84–138; BP diastolic 49–91; PULSE 54–139; RESP 8–41; TEMP 36.5–37.6; O2SAT 76–100
[2022-04-10 03:49] LABS: Basophils % 0.2 %; Eosinophils # 0.1 10^3/uL (0.0-0.8); Eosinophils % 0.6 %; Hematocrit 29.1 % (42.0-52.0); Hemoglobin 9.6 g/dL (11.7-16.6); Lymphocytes % 8.1 %; Mean Corpuscular Hemoglobin 31.2 pg (28.0-34.0); Mean Corpuscular Volume 94.5 fl (80-94); Mean Platelet Volume 11.4 fL (7.4-10.4); Monocytes # 1.2 10^3/uL (0.2-0.9); Monocytes % 9.5 %; Neutrophils # 10.05 10^3/uL (1.8-7.7); Neutrophils % 81.1 %; Nucleated Red Blood Cells % 0 %; Platelet Count 243 10^3/cmm (130-400); Red Blood Count 3.08 10^6/uL (4.1-5.3); Red Cell Distribution Width 14.3 % (12.1-15.1); White Blood Count 12.4 10^3/uL (4.0-10.0)
[2022-04-10 04:13] LABS: Anion Gap 15.2 (5-19); Blood Urea Nitrogen 25 mg/dL (8-23); Carbon Dioxide 23 mmol/L (22-29); Chloride 106 mmol/L (98-107); Glucose 121 mg/dL (65-115); Magnesium 1.9 mg/dL (1.7-2.3); Osmolality Calculated 296 mOsm/kg (285-295); Potassium 4.2 mmol/L (3.5-5.1); Sodium 140 mmol/L (136-145)
[2022-04-10] MEDS: enoxaparin 60 mg/0.6 mL Syringe 50 MG SUBCUT ×2 (04:39→18:01)
[2022-04-10] MEDS: piperacillin-tazobactam 3.375 GM in sodium chloride 0.9% (plus) 50 ML IV ×3 (05:03→22:44)
--- NOTE | 2022-04-10 05:56 | PC.NURSE ---
Shift Note Frequent safety and comfort rounds continue. Orders and/or nursing care completed as indicated. Patient monitored for response to intervention and treatment(s). Education provided includes IV millinery designer. Patient needs reinforcement teaching. Patient had an uneventful shift, remains alert/oriented x4 on 4LNC. Amiodarone and Zosyn infusing please see MAR for infusion rates. Patient denied reports of pain overnight. Voided 250 mls of urine overnight with urinal. Will continue to monitor.
[2022-04-10] MEDS: budesonide 0.5 mg/2 mL Neb INHALATION (07:34)
[2022-04-10] MEDS: ipratropium-albuterol 3 mL Neb INHALATION (07:34)
[2022-04-10 08:22] LABS: Vancomycin Trough 10.3 ug/mL (10-15)
[2022-04-10] MEDS: famotidine 20 mg/2 mL INJ IVP ×2 (09:15→19:43)
[2022-04-10] MEDS: FUROsemide 10 mg/mL SDV 4mL 40 MG IVP (09:16)
[2022-04-10] MEDS: sennosides-docusate Tablet 1 TAB PO ×2 (09:17→18:01)
[2022-04-10] MEDS: polyethylene glycol 3350 Pkt 17 gm PO (09:17)
[2022-04-10] MEDS: levoFLOXacin 500 mg Tablet PO (09:17)
[2022-04-10] MEDS: dilTIAZem 60 mg Tablet PO ×3 (09:17→19:47)
[2022-04-10] MEDS: multivitamin therapeutic Tablet 1 TAB PO (09:17)
[2022-04-10] MEDS: amiodarone 200 mg Tablet PO ×2 (09:17→18:01)
[2022-04-10] MEDS: dilTIAZem 5 mg/mL SDV 5 mL 10 MG IVP (09:22)
[2022-04-10 09:29] LABS: Procalcitonin 0.73 ng/mL (0-0.5); Vitamin B12 632 pg/mL (232-1245)
[2022-04-10 09:40] LABS: Iron 19 ug/dL (59-158); Percent Saturation 13.1 % (20-50); Total Iron Binding Capacity 145 mcg/dl; Unsaturated Iron Binding 126 ug/dL (112-347)
[2022-04-10 11:02] LABS: Folate Level 10.2 ng/mL (4.5-32.2)
--- NOTE | 2022-04-10 14:48 | PM.PN ---
Subjective Subjective: Hospital course, labs appreciated. Examination patient lying comfortably in bed. Is getting out of breath on talking. States this is his baseline. Is currently saturating more than 92% on 3 L. Heart rate seems to be running in more than 100 bpm overnight as well. Patient is on amiodarone drip at 0.5. Patient worked well with physical therapy yesterday. Ready to work today. Vitals/I&O/Wt Last Vital Signs Temp 98.3 F 04/10/22 07:00 Pulse 118 H 04/10/22 12:00 Resp 32 H 04/10/22 12:00 BP 99/72 04/10/22 12:00 Pulse Ox 94 04/10/22 12:00 O2 Del Method 04/10/22 07:41 O2 Flow Rate 3 04/10/22 07:41 04/09/22 04/10/22 04/10/22 22:59 06:59 14:59 Intake Total 857.249 / 1882.957 200 / 2082.957 710.751 / 710.751 Output Total 400 / 800 200 / 1000 800 / 800 Balance 457.249 / 1082.957 0 / 1082.957 -89.249 / -89.249 Physical Exam Narrative: General: Alert oriented x3, on3 L nasal cannula at this time. Cachectic, temporal wasting HEENT: Normocephalic, atraumatic, EOMI, breathing comfortably No acute distress Cardio: Regular rate rhythm, normal S1-S2, no murmurs Respiratory: Diminished air entry bilaterally, no rhonchi present at this time. However there is mild wheezing present diffusely. GI: Abdomen soft, nontender, nondistended, bowel sounds + Behavior: Appropriate and cooperative Extremities: No lower extremity edema bilaterally, dressing intact. Data : 04/10/22 02:53 04/10/22 02:53 Micro: Microbiology 04/08/22 20:55 MRSA Culture - Final Nose A&P Assessment and plan (1) Intertrochanteric fracture of left hip: Post-ORIF. Day 7. Physical therapy. Monitor hemoglobin. Will need SNF placement for further rehabitation. Status: Acute (2) Hypoxia: Secondary to a combination of pulmonary embolism, pneumonia and COPD. Keep saturation over 88%. Also component of mild CHF. IV Lasix 40 mg once. Strict input output charting. Fluid restriction up to 1500 cc. Status: Acute (3) COPD (chronic obstructive pulmonary disease): Keep saturation over 88%. Start on Advair, Spiriva. Hold off on budesonide and DuoNebs. Status: Acute (4) Pneumonia: Seen on CT scan. Could be secondary to aspiration during fall. Patient does not seem to be having any cough during current meals. Continue with Zosyn. MRSA negative. Start on Levaquin 5 mg oral daily to finish a 5-day course. Sputum culture awaited. Blood cultures so far negative. Aggressive pulmonary toilet with I-S and Acapella. Status: Acute (5) Pulmonary embolism: Seen on CTA. Echocardiogram though poor study was not associated with RV dysfunction. Will review in 1 week we will repeat pneumonia. We will reconvene tomorrow with improvement in the rash. Status: Acute (6) Atrial fibrillation with rapid ventricular response: Heart rate running in more than 100s regularly. Continue with amiodarone drip started yesterday. Start on amiodarone 200 mg twice daily. Stop oral metoprolol every 6 hourly. Switch to Cardizem 60 mg every 6 hourly. Anticoagulation as above. If does not improve will plan for digoxin load as per creatinine clearance. Target heart rate less than 90 bpm. Status: Acute (7) Diverticulosis: Status: Chronic Plan Analgesia: Tylenol as needed Glycemic control: Not needed Nutrition: Regular diet CODE STATUS: Full code PUD prophylaxis: Famotidine DVT prophylaxis: Eliquis will suffice for DVT prophylaxis Discharge planning: Discharge to SNF once medically stable. Continue with care at CSU level for now. This documentation was created by [employer] production engine repairer software. Every effort was made to ensure accuracy of production engine repairer. Any obvious errors or omissions should be clarified with the author of the document. Attestations Medical Necessity Statement*: Requires further hospitalization for management of hypoxia secondary to pneumonia, pulm embolism, atrial fibrillation with rapid ventricular response in a patient who is postoperative for ORIF while safe discharge planning is sought Time Spent in Patient Care: Greater than 35 minutes Coding Level of Care Code Acute Type Rolling Machine Operator for [facility] Fwd Diagnoses Intertrochanteric fracture of left hip S72.142A Hypoxia R09.02 COPD (chronic obstructive pulmonary disease) J44.9 Pneumonia J18.9 Pulmonary embolism I26.99 Atrial fibrillation with rapid ventricular response I48.91 Diverticulosis K57.90
[2022-04-10] MEDS: acetaminophen 325 mg Tablet 650 MG PO (18:32)
[2022-04-11] VITALS (140 sets, daily range): BP systolic 92–122; BP diastolic 48–77; PULSE 47–140; RESP 15–36; TEMP 36.6–36.8; O2SAT 82–100
[2022-04-11] MEDS: acetaminophen 325 mg Tablet 650 MG PO (00:05)
[2022-04-11] MEDS: dilTIAZem 60 mg Tablet PO ×4 (02:54→21:57)
[2022-04-11 04:11] LABS: Basophils % 0.2 %; Eosinophils # 0.1 10^3/uL (0.0-0.8); Eosinophils % 0.8 %; Hematocrit 29.6 % (42.0-52.0); Hemoglobin 9.5 g/dL (11.7-16.6); Lymphocytes # 0.9 10^3/uL (0.8-4.8); Lymphocytes % 8.4 %; Mean Corpuscular HGB Conc 32.1 g/dL (30.0-36.0); Mean Corpuscular Hemoglobin 30.5 pg (28.0-34.0); Mean Corpuscular Volume 95.2 fl (80-94); Mean Platelet Volume 10.5 fL (7.4-10.4); Monocytes # 0.9 10^3/uL (0.2-0.9); Monocytes % 9.3 %; Neutrophils # 8.14 10^3/uL (1.8-7.7); Neutrophils % 80.5 %; Nucleated Red Blood Cells % 0 %; Platelet Count 315 10^3/cmm (130-400); Red Blood Count 3.11 10^6/uL (4.1-5.3); Red Cell Distribution Width 14.5 % (12.1-15.1); White Blood Count 10.1 10^3/uL (4.0-10.0)
[2022-04-11 04:37] LABS: Alanine Aminotransferase 15 U/L (0-41); Albumin Level 1.9 g/dL (3.5-5.2); Alkaline Phosphatase 82 U/L (40-130); Anion Gap 13.3 (5-19); Aspartate Amino Transferase 22 U/L (0-40); Blood Urea Nitrogen 23 mg/dL (8-23); Calcium 7.8 mg/dL (8.5-10.5); Carbon Dioxide 23 mmol/L (22-29); Chloride 100 mmol/L (98-107); Chol HDL Ratio 2.87 mg/dL (1.0-5.00); Cholesterol 66 mg/dL (0-200); Globulin 3.2 g/dL (1.3-4.6); Glucose 134 mg/dL (65-115); HDL Cholesterol 23 mg/dL (60-100); LDL Cholesterol Calculated 28 mg/dL (50-129); Osmolality Calculated 282 mOsm/kg (285-295); Potassium 3.3 mmol/L (3.5-5.1); Sodium 133 mmol/L (136-145); Total Bilirubin 0.6 mg/dL (0.15-1.2); Total Protein 5.1 g/dL (6.6-8.7); Triglycerides 76 mg/dL (0-150); VLDL Cholestrol Calculation 15 mg/dL (0-30)
[2022-04-11 04:45] LABS: Estmated Average Glucose 123; Hemoglobin A1C 5.9 % (4.0-6.0)
[2022-04-11] MEDS: enoxaparin 60 mg/0.6 mL Syringe 50 MG SUBCUT ×2 (05:50→17:20)
[2022-04-11] MEDS: levoFLOXacin 500 mg Tablet PO (05:50)
[2022-04-11] MEDS: piperacillin-tazobactam 3.375 GM in sodium chloride 0.9% (plus) 50 ML IV ×3 (05:59→21:57)
--- NOTE | 2022-04-11 07:38 | PC.NURSE ---
Shift Note Frequent safety and comfort rounds continue. Orders and/or nursing care completed as indicated. Patient monitored for response to intervention and treatment(s). 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 Patient needs reinforcement teaching. Patient had an uneventful night, remains alert & oriented x4 on 4LNC. Voided 150 mls of urine overnight. Amiodarone infusing per order please see MAR for details. Will continue to monitor.
[2022-04-11] MEDS: polyethylene glycol 3350 Pkt 17 gm PO (08:08)
[2022-04-11] MEDS: sennosides-docusate Tablet 1 TAB PO ×2 (08:08→17:20)
[2022-04-11] MEDS: famotidine 20 mg/2 mL INJ IVP ×2 (08:08→21:57)
[2022-04-11] MEDS: amiodarone 200 mg Tablet PO ×2 (08:08→17:20)
[2022-04-11] MEDS: multivitamin therapeutic Tablet 1 TAB PO (08:08)
[2022-04-11] MEDS: potassium chloride ER 20 mEq Tablet 80 MEQ PO (10:52)
[2022-04-11] MEDS: FUROsemide 40 mg Tablet PO (10:52)
--- NOTE | 2022-04-11 16:00 | P.PN_ITS ---
Subjective Subjective: No acute events overnight. Heart rate is a lot better controlled. Patient seems more comfortable today. Asking when he may be discharged. Denies of having any new complaints. Worked with physical therapy. Vitals/I&O/Wt Last Vital Signs Temp 97.8 F 04/11/22 07:00 Pulse 102 H 04/11/22 14:00 Resp 15 04/11/22 14:00 BP 92/66 04/11/22 14:00 Pulse Ox 91 04/11/22 14:00 O2 Del Method 04/11/22 08:00 O2 Flow Rate 3 04/11/22 08:00 04/11/22 04/11/22 04/11/22 06:59 14:59 22:59 Intake Total 250 / 1210.751 450 / 450 Output Total 150 / 950 600 / 600 Balance 100 / 260.751 -150 / -150 Physical Exam Narrative: General: Alert oriented x3, on3 L nasal cannula at this time. Cachectic, temporal wasting HEENT: Normocephalic, atraumatic, EOMI, breathing comfortably No acute distress Cardio: Regular rate rhythm, normal S1-S2, no murmurs Respiratory: Diminished air entry bilaterally, no rhonchi present at this time. However there is mild wheezing present diffusely. GI: Abdomen soft, nontender, nondistended, bowel sounds + Behavior: Appropriate and cooperative Extremities: No lower extremity edema bilaterally, dressing intact. Data : 04/11/22 03:19 04/11/22 03:19 A&P Assessment and plan (1) Intertrochanteric fracture of left hip: Post-ORIF. Day 7. Physical therapy. Monitor hemoglobin. Will need SNF placement for further rehabitation. Status: Acute (2) Hypoxia: Secondary to a combination of pulmonary embolism, pneumonia and COPD. Keep saturation over 88%. Also component of mild CHF. IV Lasix 40 mg once. Strict input output charting. Fluid restriction up to 1500 cc. Status: Acute (3) COPD (chronic obstructive pulmonary disease): Keep saturation over 88%. Start on Advair, Spiriva. Hold off on budesonide and DuoNebs. Status: Acute (4) Pneumonia: Seen on CT scan. Could be secondary to aspiration during fall. Patient does not seem to be having any cough during current meals. Continue with Zosyn. MRSA negative. Start on Levaquin 5 mg oral daily to f inish a 5-day course. Sputum culture awaited. Blood cultures so far negative. Aggressive pulmonary toilet with I-S and Acapella. Status: Acute (5) Pulmonary embolism: Seen on CTA. Echocardiogram though poor study was not associated with RV dysfunction. Will review in 1 week we will repeat pneumonia. We will reconvene tomorrow with improvement in the rash. Status: Acute (6) Atrial fibrillation with rapid ventricular response: Heart rate running in more than 100s regularly. Continue with amiodarone drip started yesterday. Start on amiodarone 200 mg twice daily. Stop oral metoprolol every 6 hourly. Switch to Cardizem 60 mg every 6 hourly. Anticoagulation as above. If does not improve will plan for digoxin load as per creatinine clearance. Target heart rate less than 90 bpm. Status: Acute (7) Diverticulosis: Status: Chronic Plan Analgesia: Tylenol as needed Glycemic control: Not needed Nutrition: Regular diet CODE STATUS: Full code PUD prophylaxis: Famotidine DVT prophylaxis: Lovenox will suffice for DVT prophylaxis Discharge planning: Discharge to SNF once medically stable. Continue with care at CSU level for now. Plan for the day: Continue with amiodarone 200 mg twice daily, Cardizem 60 mg every 6 hourly. Continue with full dose Lovenox which will be transitioned over to Eliquis on discharge. Continue Levaquin to finish a 5-day course. Oral Lasix 40 mg once. Replete oral potassium 80 mEq. Discharge planning: Discharge to SNF within next 24 hours if patient remains stable. This documentation was created by [employer] commercial sales consultant software. Every effort was made to ensure accuracy of commercial sales consultant. Any obvious errors or omissions should be clarified with the author of the document. Attestations Medical Necessity Statement*: Requires further hospitalization for management of hypoxia secondary to pulm embolism, diastolic heart failure, A. fib with RVR in setting of post-ORIF status Time Spent in Patient Care: Greater than 35 minutes Coding Level of Care Code Acute Roller Turner for Chg Fwd Diagnoses Intertrochanteric fracture of left hip S72.142A Hypoxia R09.02 COPD (chronic obstructive pulmonary disease) J44.9 Pneumonia J18.9 Pulmonary embolism I26.99 Atrial fibrillation with rapid ventricular response I48.91 Diverticulosis K57.90
[2022-04-11] MEDS: ferrous gluconate 324 mg Tablet PO (17:20)
[2022-04-12] VITALS (103 sets, daily range): BP systolic 90–122; BP diastolic 45–70; PULSE 47–132; RESP 18–32; O2SAT 76–100
[2022-04-12] MEDS: dilTIAZem 60 mg Tablet PO ×2 (02:09→08:17)
[2022-04-12 02:55] LABS: Basophils % 0.2 %; Eosinophils # 0.1 10^3/uL (0.0-0.8); Eosinophils % 0.4 %; Hematocrit 30.5 % (42.0-52.0); Lymphocytes % 7.1 %; Mean Corpuscular HGB Conc 32.8 g/dL (30.0-36.0); Mean Corpuscular Hemoglobin 30.5 pg (28.0-34.0); Mean Platelet Volume 10.2 fL (7.4-10.4); Monocytes % 7.5 %; Neutrophils # 11.69 10^3/uL (1.8-7.7); Neutrophils % 84.3 %; Nucleated Red Blood Cells % 0 %; Platelet Count 391 10^3/cmm (130-400); Red Blood Count 3.28 10^6/uL (4.1-5.3); Red Cell Distribution Width 14.3 % (12.1-15.1); White Blood Count 13.9 10^3/uL (4.0-10.0)
[2022-04-12 03:23] LABS: Alanine Aminotransferase 19 U/L (0-41); Albumin Level 2.2 g/dL (3.5-5.2); Alkaline Phosphatase 97 U/L (40-130); Anion Gap 14.2 (5-19); Aspartate Amino Transferase 23 U/L (0-40); Blood Urea Nitrogen 21 mg/dL (8-23); Carbon Dioxide 24 mmol/L (22-29); Chloride 102 mmol/L (98-107); Globulin 3.1 g/dL (1.3-4.6); Glucose 133 mg/dL (65-115); Osmolality Calculated 287 mOsm/kg (285-295); Potassium 4.2 mmol/L (3.5-5.1); Sodium 136 mmol/L (136-145); Total Bilirubin 0.5 mg/dL (0.15-1.2); Total Protein 5.3 g/dL (6.6-8.7)
[2022-04-12] MEDS: levoFLOXacin 500 mg Tablet PO (05:38)
[2022-04-12] MEDS: piperacillin-tazobactam 3.375 GM in sodium chloride 0.9% (plus) 50 ML IV (05:38)
[2022-04-12] MEDS: enoxaparin 60 mg/0.6 mL Syringe 50 MG SUBCUT (05:38)
--- NOTE | 2022-04-12 08:05 | P.PN_ITS ---
Subjective Subjective: Patient intubated and unresonsive Vitals/I&O/Wt Last Vital Signs Temp 98.3 F 04/11/22 23:40 Pulse 88 04/12/22 06:30 Resp 27 H 04/12/22 06:30 BP 96/54 04/12/22 06:30 Pulse Ox 96 04/12/22 06:30 O2 Del Method 04/11/22 19:56 O2 Flow Rate 3 04/11/22 19:56 04/11/22 04/12/22 04/12/22 22:59 06:59 14:59 Intake Total 768 / 1218 50 / 1268 Output Total 325 / 925 Balance 443 / 293 50 / 343 Physical Exam Narrative: Right hip incision healed Data : 04/12/22 02:35 04/12/22 02:35 A&P Assessment and plan (1) Status post open reduction with internal fixation of fracture: Surgical site looks great. Medical condition guarded at this point. We will continue to follow from a distance. Status: Acute Attestations Medical Necessity Statement*: As per medicine Coding Level of Care Code Acute Newsroom Intern for Mejia Barber Diagnoses Status post open reduction with internal fixation of fracture Z98.890; Z87.81
[2022-04-12] MEDS: famotidine 20 mg/2 mL INJ IVP (08:16)
[2022-04-12] MEDS: ferrous gluconate 324 mg Tablet PO (08:17)
[2022-04-12] MEDS: multivitamin therapeutic Tablet 1 TAB PO (08:17)
[2022-04-12] MEDS: amiodarone 200 mg Tablet PO (08:17)
--- NOTE | 2022-04-12 08:28 | PM.DCS ---
Discharge Providers Date of Admission: 04/03/22 18:26 Date of Discharge: April 12, 2022 Attending Provider at Admission: Tonya Jiang MD Attending Provider at Discharge: Braulio Saldaña MD Consults: Orthopedics: Dr. Roman Primary Care Provider: Eder Ortiz Diagnoses at Discharge Discharge Diagnosis (1) Status post open reduction with internal fixation of fracture: Status: Acute (2) Hypoxia: Status: Acute (3) Atrial fibrillation with rapid ventricular response: Status: Acute (4) Pulmonary embolism: Status: Acute (5) Pneumonia: Status: Acute (6) Intertrochanteric fracture of left hip: Status: Acute Reason for Visit Reason for Visit: Leg Pain Brief History: History as per HPI: Thaddeus Shahid is a 81 year old male with no significant past medical history other than COPD and the fact that he is a smoker presents to the hospital after having a mechanical fall.? He is currently remodeling a property and he says he tripped over something and fell on his hip.? He was having a lot of pain and therefore came to the hospital.? He does not use oxygen at home.? He says that he has been given an inhaler in the past but does not really use it very often.? He is able to walk but eventually gets a little bit short of breath.? He does not really follow-up with a doctor.? Denies chest pain, shortness of breath at this time, nausea, vomiting, diarrhea.? Does have some pain in his hip from his fall.? Denies lower extremity edema.? Lives at home with his son.? Patient unable to bear any weight on his left leg. ED course: On arrival blood pressure 150/74, heart rate stable, on room air saturating 88%.? WBC count 11.2. Femur x-ray showed no fracture of middle distal femur, hip pelvis x-ray showed likely incomplete nondisplaced intertrochanteric fracture.? Chest x-ray showed COPD with no acute finding.? Hip CT showed proximal femur fracture.? Case was discussed with orthopedic surgeon on-call.? Plan to take patient to surgery in a.m. Hospital Course Hospital Course Patient went to the hospital further evaluation and management. On admission he was found to have proximal femur fracture. Orthopedics was consulted and underwent ORIF on 04/04. His hospitalization was complicated by him developing hypoxic respiratory failure and atrial fibrillation with rapid ventricular response. On further evaluation he was found to have bilateral pneumonia along with bilateral pulmonary embolism. He was started on broad-spectrum antibiotics and anticoagulation. For atrial fibrillation at first his heart rate was difficult to control even with multiple medications later he was transitioned over to IV amiodarone drip along with oral Cardizem which controlled his heart rate. Currently he has been doing fine with amiodarone 200 mg twice daily and oral Cardizem. He responded well to the treatment and has been working well with physical therapy. Patient's oxygen requirements have been trending down as well. He has been discharged hemodynamically stable condition to SNF for further rehabitation on oral Cardizem, oral amiodarone. He is to take oral amiodarone 200 mg daily for next 7 days and then come down to 200 mg daily afterwards. He is to take oral Cardizem 10 mg daily. He has finished the course of his IV antibiotics but has to continue taking Levaquin for 3 more days. Physical Exam Narrative: General: Alert oriented x3, on3 L nasal cannula at this time. Cachectic, temporal wasting HEENT: Normocephalic, atraumatic, EOMI, breathing comfortably No acute distress Cardio: Regular rate rhythm, normal S1-S2, no murmurs Respiratory: Diminished air entry bilaterally, no rhonchi present at this time. However there is mild wheezing present diffusely. GI: Abdomen soft, nontender, nondistended, bowel sounds + Behavior: Appropriate and cooperative Extremities: No lower extremity edema bilaterally, dressing intact. Discharge Data Studies Completed and Pending Completed Studies During Hospitalization Category Date Time Status CT hip LT wo con* [id number] Stat Cat Scan 04/03/22 14:58 Completed CTA PE [CT angio chest PE protcl [id number]] Stat Cat Scan 04/08/22 12:21 Completed XR chest 1V portable [id number] Routine Exams 04/04/22 16:49 Completed XR chest 1V portable [id number] Stat Exams 04/03/22 14:48 Completed XR chest 1V portable [id number] Stat Exams 04/08/22 19:53 Completed XR chest 1V portable [id number] Urgent Exams 04/07/22 08:23 Completed XR femur LT min 2V* [id number] Stat Exams 04/03/22 13:38 Completed XR hip LT 1V wo/w [place] [id number] Routine Exams 04/04/22 16:02 Completed XR hip LT 2-3V wo/w pel* [id number] Stat Exams 04/03/22 13:38 [place] [id number] Urgent Ultrasound 04/08/22 13:51 Completed CV. echo complete* [id number] Routine Ultrasound 04/08/22 04:49 Completed Pending at discharge Category Date Time Status ES surgery / GI images Routine Exams 04/04/22 15:12 Taken Sputum Culture and Gram Stain Stat Lab 04/05/22 15:33 Uncollected Radiology Impressions Femur X-Ray 04/03/22 13:38 IMPRESSION: No fracture of the mid and distal femur as above. Hip/Pelvis X-Ray 04/03/22 13:38 IMPRESSION: Likely incomplete nondisplaced intertrochanteric fracture. A CT scan of the left hip could be obtained for better evaluation as clinically warranted. Hip CT 04/03/22 14:58 IMPRESSION: 1. Proximal femur fracture, as described above. 2. Additional findings, as above. Hip X-Ray 04/04/22 16:02 IMPRESSION: Intraoperative imaging demonstrating fixation of intertrochanteric fracture without abnormality as above. Chest CTA 04/08/22 12:21 IMPRESSION: 1. Several small filling defects in the subsegmental pulmonary arteries in the RIGHT lung compatible with pulmonary embolus. 2. Proximal main pulmonary arteries are normal. 3. Tiny bilateral pleural effusions with airspace infiltrates in the lung bases consistent with pneumonia. Attempted notification Tonya Jiang MD at 04/08/2022 1:42 PM. Chest X-Ray 04/08/22 19:53 IMPRESSION: 1. Bilateral hilar to lobe airspace infiltrates, similar to prior exam. 2. Emphysematous changes. Echocardiogram: CONCLUSIONS ?Technically very limited study since only subcostal views were ?obtained. ?Possibly normal LV size with borderline low ejection fraction. ?Possibly normal RV size and ejection fraction. ?Both atria appear to be mildly dilated. ?Mild-moderate mitral valve regurgitation. ?Mild tricuspid valve regurgitation. ?There is no pericardial effusion. ?There are no intracardiac masses. ?No similar previous studies are available for comparison ?Dr Jarvis Benedict MD [facility] ?(Electronically Signed) ?Final Date:? ? ? 08 April 2022 ? 23:06 Microbiology 04/08/22 20:55 Nose MRSA Culture - Final 04/05/22 18:01 Nose MRSA Culture - Final Laboratory Results WBC 13.9 10^3/uL (4.0-10.0) H 04/12/22 02:35 RBC 3.28 10^6/uL (4.1-5.3) L 04/12/22 02:35 Hgb 10.0 g/dL (11.7-16.6) L 04/12/22 02:35 Hct 30.5 % (42.0-52.0) L 04/12/22 02:35 MCV 93.0 fl (80-94) 04/12/22 02:35 MCH 30.5 pg (28.0-34.0) 04/12/22 02:35 MCHC 32.8 g/dL (30.0-36.0) 04/12/22 02:35 RDW 14.3 % (12.1-15.1) 04/12/22 02:35 Plt Count 391 10^3/cmm (130-400) 04/12/22 02:35 MPV 10.2 fL (7.4-10.4) 04/12/22 02:35 Neut % (Auto) 84.3 % 04/12/22 02:35 Lymph % (Auto) 7.1 % 04/12/22 02:35 [place] % (Auto) 7.5 % 04/12/22 02:35 Eos % (Auto) 0.4 % 04/12/22 02:35 Baso % (Auto) 0.2 % 04/12/22 02:35 Neut # (Auto) 11.69 10^3/uL (1.8-7.7) H 04/12/22 02:35 Lymph # (Auto) 1.0 10^3/uL (0.8-4.8) 04/12/22 02:35 [place] # (Auto) 1.0 10^3/uL (0.2-0.9) H 04/12/22 02:35 Eos # (Auto) 0.1 10^3/uL (0.0-0.8) 04/12/22 02:35 Baso # (Auto) 0.0 10^3/uL (0.0-0.1) 04/12/22 02:35 Nucleated RBC % (auto) 0 % 04/12/22 02:35 Nucleated RBCs # 0.0 /100WBC 04/12/22 02:35 PT 14.10 SECONDS (12.1-14.9) 04/03/22 15:12 INR 1.06 (0.8-1.2) 04/03/22 15:12 APTT 28.8 SECONDS (23.9-36.7) 04/03/22 15:12 D-Dimer 3.10 ug/mIFEU (0-0.59) H 04/08/22 11:02 Sodium 136 mmol/L (136-145) 04/12/22 02:35 Potassium 4.2 mmol/L (3.5-5.1) 04/12/22 02:35 Chloride 102 mmol/L (98-107) 04/12/22 02:35 Carbon Dioxide 24 mmol/L (22-29) 04/12/22 02:35 Anion Gap 14.2 (5-19) 04/12/22 02:35 BUN 21 mg/dL (8-23) 04/12/22 02:35 Creatinine 1.0 mg/dL (0.7-1.2) 04/12/22 02:35 GFR Calculation Not Reportable 04/12/22 02:35 Glucose 133 mg/dL (65-115) H 04/12/22 02:35 Estimat Average Glucose 123 04/11/22 03:19 Hemoglobin A1c 5.9 % (4.0-6.0) 04/11/22 03:19 Calculated Osmolality 287 mOsm/kg (285-295) 04/12/22 02:35 Calcium 8.0 mg/dL (8.5-10.5) L 04/12/22 02:35 Phosphorus 2.6 mg/dL (2.5-4.5) 04/08/22 20:09 Magnesium 1.9 mg/dL (1.7-2.3) 04/10/22 02:53 Iron 19 ug/dL (59-158) L 04/10/22 02:53 TIBC 145 mcg/dl 04/10/22 02:53 % Saturation 13.1 % (20-50) L 04/10/22 02:53 Unsat Iron Binding 126 ug/dL (112-347) 04/10/22 02:53 Total Bilirubin 0.5 mg/dL (0.15-1.2) 04/12/22 02:35 AST 23 U/L (0-40) 04/12/22 02:35 ALT 19 U/L (0-41) 04/12/22 02:35 Alkaline Phosphatase 97 U/L (40-130) 04/12/22 02:35 Troponin T Baseline 14 ng/L (0-15) 04/08/22 05:15 Troponin T 120 Minute 14.79 ng/L (0-15) 04/08/22 07:15 Delta Troponin T 0.79 ABS# (0-10) 04/08/22 07:15 Troponin T Hi Sens 6Hr 15.11 ng/L (0-15) H 04/08/22 11:02 Troponin T Hi Sens 6Hr Delta 1.11 ng/L (0-12) 04/08/22 11:02 Total Protein 5.3 g/dL (6.6-8.7) L 04/12/22 02:35 Albumin 2.2 g/dL (3.5-5.2) L 04/12/22 02:35 Globulin 3.1 g/dL (1.3-4.6) 04/12/22 02:35 Triglycerides 76 mg/dL (0-150) 04/11/22 03:19 Cholesterol 66 mg/dL (0-200) 04/11/22 03:19 LDL Cholesterol, Calc 28 mg/dL (50-129) L 04/11/22 03:19 Total VLDL Cholesterol 15 mg/dL (0-30) 04/11/22 03:19 HDL Cholesterol 23 mg/dL (60-100) L 04/11/22 03:19 Cholesterol/HDL Ratio 2.87 mg/dL (1.0-5.00) 04/11/22 03:19 Vitamin B12 632 pg/mL (232-1245) 04/10/22 02:53 Folate 10.2 ng/mL (4.5-32.2) 04/10/22 09:49 Procalcitonin 0.73 ng/mL (0-0.5) H 04/10/22 02:53 TSH 2.03 uIU/mL (0.27-4.20) 04/08/22 05:15 Urine Color Dark yellow (Yellow) 04/03/22 15:24 Urine Appearance Clear (CLEAR) 04/03/22 15:24 Urine pH 6 (5-7) 04/03/22 15:24 Ur Specific [place] 1.020 (1.005-1.030) 04/03/22 15:24 Urine Protein Neg (Negative) 04/03/22 15:24 Urine Glucose (UA) Norm (Normal) 04/03/22 15:24 Urine Ketones 1+ (Negative) H 04/03/22 15:24 Urine Blood Neg (Negative) 04/03/22 15:24 Urine Nitrate Negative (Negative) 04/03/22 15:24 Urine Bilirubin Neg (Negative) 04/03/22 15:24 Urine Urobilinogen 1 mg/dL (Negative) H 04/03/22 15:24 Ur Leukocyte Esterase Negative (Negative) 04/03/22 15:24 Vancomycin Trough 10.3 ug/mL (10-15) 04/10/22 07:45 Coronavirus 229E (PCR) Not detected (NOT DETECT) 04/08/22 14:06 SARS-CoV-2 (PCR) Not detected (NOT DETECT) 04/08/22 14:06 SARS-CoV-2 Ag (Rapid) Negative (Negative) 04/08/22 00:30 Vitals Last Vital Signs Temp 98.3 F 04/11/22 23:40 Pulse 88 04/12/22 06:30 Resp 27 H 04/12/22 06:30 BP 96/54 04/12/22 06:30 Pulse Ox 96 04/12/22 06:30 O2 Del Method 04/11/22 19:56 O2 Flow Rate 3 04/11/22 19:56 Discharge Plan Discharge Patient Disposition: Xfer SNF Condition: Stable Prescriptions: New Symbicort 160-4.5 mcg/actuation HFA aerosol inhaler 2 inh inhalation BID 30 Days Qty: 10.2 0RF Spiriva Respimat 2.5 mcg/actuation mist 2 inh inhalation DAILY 30 Days Qty: 4 0RF polyethylene glycol 3350 17 gram Powder In Packet 17 g PO DAILY Qty: 14 0RF Pacerone 200 mg Tablet 200 mg PO BID 30 Days Qty: 60 0RF levofloxacin 500 mg Tablet 500 mg PO DAILY@0600 Qty: 3 0RF ferrous gluconate 324 mg (37.5 mg iron) Tablet 324 mg PO BIDWM Qty: 60 0RF Cardizem CD 300 mg capsule,extended release 24hr 300 mg PO DAILY Qty: 30 0RF Eliquis 5 mg tablet 5 mg PO BID Qty: 60 0RF Continued multivitamin [Multiple Vitamins] Tablet 1 tab PO DAILY albuterol sulfate 90 mcg/actuation aerosol powdr breath activated 2 inh INHALATION Q6H PRN (Reason: Shortness Of Breath Or Wheezing) Discharge Orders: Discharge Order (Routine); Ordered 04/12/22 Ordered By: Braulio Saldaña Referrals: Jesenia Ram MD [Referring] - 4-7 days ([facility] to arrange for appointment and transporation ) Fernando Roman MD [Physician] - 7-10 days ([facility] to arrange for appointment and transportation. ) Discharge Diet: Regular Discharge Activity: Increase activity as tolerated, As per PT/OT instructions and Oxygen as instructed Patient Instructions: A-fib (Atrial Fibrillation) (DC), Pulmonary Embolism (DC), Community Acquired Pneumonia (DC), ORIF of Hip Fracture (DC), Opioid Safety, Pain Management Activity Restrictions/Additional Instructions: Please take amiodarone 200 mg twice daily for next 7 days followed by 200 mg daily. Take Cardizem 300 mg oral daily. Take Eliquis for the blood thinner 5 mg twice daily. Take Levaquin which is the antibiotic for next 3 days. Please follow-up with a primary care provider within next 1 week. Please continue to work with physical therapy. Discharge Attestations Time Spent in Discharge Care*: greater than 30 min Specific Discharge Activities: educating patient, educating and/or supporting family/caregiver, discussing with pcp/other providers and discussing with window caser/social workers/dc planners Status at Discharge: Cognitive status at discharge: cognitively intact, Behavioral status at discharge: cooperative, Functional status at discharge: uses cane/walker, Overall status at discharge: patient is progressing back to baseline Quality Metrics Clinical Quality Measures [ No reported AMI, CVA or VTE this stay] Coding Level of Care Code Acute Chg FW DC note Diagnoses Status post open reduction with internal fixation of fracture Z98.890; Z87.81 Hypoxia R09.02 Atrial fibrillation with rapid ventricular response I48.91 Pulmonary embolism I26.99 Pneumonia J18.9 Intertrochanteric fracture of left hip S72.142A
--- NOTE | 2022-04-12 09:57 | PC.NURSE ---
report called to Marian artis
--- NOTE | 2022-04-12 12:59 | PC.NURSE ---
patient out of facility transported to [facility] by ready transport
== END 2022-04-12 12:59 | disposition skilled nursing facility (03) | DRG 480 ==
LOC: ER 17:17 → MEDSURG 23:06 → ICU 04-08 16:06
PROVIDERS: Family Medicine; Orthopaedic Surgery; Admitting Provider Internal Medicine; Emergency Provider Family Medicine; PCP Internal Medicine; Visit Provider Student in an Organized Health Care Education/Training Program
PROC: 0QS706Z Reposition Left Upper Femur with Intramedullary Internal Fixation Device, Open Approach (ICD-10-PCS; CPT 27245; principal; 2022-04-04 12:30)
DX: S72.142A Displaced intertrochanteric fracture of left femur, initial encounter for closed fracture (principal); I26.99 Other pulmonary embolism without acute cor pulmonale; J18.9 Pneumonia, unspecified organism; W01.0XXA Fall on same level from slipping, tripping and stumbling without subsequent striking against object, initial encounter; J43.2 Centrilobular emphysema; F17.210 Nicotine dependence, cigarettes, uncomplicated; I48.91 Unspecified atrial fibrillation; Z79.51 Long term (current) use of inhaled steroids
CPT/HCPCS: 36415; 71045; 71275; 73501; 73502; 73552; 73700; 80048; 80053; 80061; 80202; 81003; 82607; 82746; 83036; 83540; 83550; 83735; 84100; 84145; 84443; 84484; 85025; 85378; 85610; 85730; 87426; 87635; 87641; 93005; 93306; 93970; 94640; 94664; 96361; 96372; 96374; 96375; 97110; 97116; 97161; 97166; 97530; 97535; 99285; A7003; C1713; J0282; J0456; J0690; J0696; J1100; J1650; J1940; J2270; J2370; J2405; J2543; J2704; J3010; J3370; J3475; J3490; J7030; J7050; J7060; J7626; Q9967

== ENCOUNTER → 2022-05-07 10:47 | Outpatient (BNVA) | payer OTHER, SELFPAY | PROVIDERS: PCP Internal Medicine; Visit Provider Nurse Practitioner Family | DX: Z98.890 Other specified postprocedural states (principal); Z87.81 Personal history of (healed) traumatic fracture | CPT/HCPCS: 73502; 99024 ==

== ENCOUNTER 2022-06-08 00:35 | Emergency (ER) | payer OTHER, SELFPAY ==
[2022-06-08 00:43] VITALS: BP 172/93; PULSE 73; RESP 22; TEMP 36.6; O2SAT 96; BMI 14.8
[2022-06-08] MEDS: sodium chloride 0.9% 1,000 ML 999 ML IV (02:06)
[2022-06-08 02:11] LABS: Basophils % 0.2 %; Eosinophils # 0.1 10^3/uL (0.0-0.8); Eosinophils % 0.9 %; Hematocrit 44.3 % (42.0-52.0); Hemoglobin 13.7 g/dL (11.7-16.6); Lymphocytes # 0.9 10^3/uL (0.8-4.8); Mean Corpuscular HGB Conc 30.9 g/dL (30.0-36.0); Mean Corpuscular Hemoglobin 30.2 pg (28.0-34.0); Mean Corpuscular Volume 97.8 fl (80-94); Mean Platelet Volume 9.4 fL (7.4-10.4); Monocytes # 0.8 10^3/uL (0.2-0.9); Monocytes % 6.6 %; Neutrophils # 10.48 10^3/uL (1.8-7.7); Neutrophils % 84.9 %; Nucleated Red Blood Cells % 0 %; Platelet Count 327 10^3/cmm (130-400); Red Blood Count 4.53 10^6/uL (4.1-5.3); Red Cell Distribution Width 14.3 % (12.1-15.1); White Blood Count 12.3 10^3/uL (4.0-10.0)
[2022-06-08 02:19] VITALS: BP 164/83; PULSE 74; RESP 18; O2SAT 98
[2022-06-08 02:32] LABS: Lactate (Lactic Acid level) 1.5 mmol/L (0.5-2.2)
[2022-06-08 02:33] LABS: Alanine Aminotransferase 12 U/L (0-41); Albumin Level 3.9 g/dL (3.5-5.2); Alkaline Phosphatase 154 U/L (40-130); Anion Gap 14.9 (5-19); Aspartate Amino Transferase 16 U/L (0-40); Blood Urea Nitrogen 26 mg/dL (8-23); Calcium 9.1 mg/dL (8.5-10.5); Carbon Dioxide 28 mmol/L (22-29); Chloride 102 mmol/L (98-107); Globulin 3.2 g/dL (1.3-4.6); Glucose 146 mg/dL (65-115); Lipase 28 U/L (13-60); Osmolality Calculated 297 mOsm/kg (285-295); Potassium 4.9 mmol/L (3.5-5.1); Sodium 140 mmol/L (136-145); Total Bilirubin 0.2 mg/dL (0.15-1.2); Total Protein 7.1 g/dL (6.6-8.7)
--- NOTE | 2022-06-08 03:03 | XRR_ITS ---
PROCEDURE INFORMATION: Exam: XR Abdomen Exam date and time: 06/08/2022 4:10 AM Age: 81 years old Clinical indication: Abdominal pain; Generalized; Prior surgery; Surgery date: 1-6 months; Surgery type: Hip surgery 1.5 mos ago; Additional info: Abd pain TECHNIQUE: Imaging protocol: Radiologic exam of the abdomen. Views: Frontal supine view of the abdomen. 1 View. COMPARISON: CR XR KUB [id number] 09/29/2019 10:55 AM FINDINGS: Gastrointestinal tract: There are some dilated loops of small bowel in the left mid abdomen. Moderate to large colonic fecal burden consistent with constipation. Bones/joints: There are moderate-sized osteophytes of the spine. A partially visualized orthopedic pin is seen in the left femoral head. XR/XR KUB portable [id number] IMPRESSION: Findings suggestive of obstipation. However, as there are dilated loops of small bowel, partial small bowel obstruction is not excluded. CT scan of the abdomen pelvis may be helpful if clinically indicated.
[2022-06-08] MEDS: mineral oil 30 mL UDC PO (06:06)
[2022-06-08] MEDS: magnesium hydroxide 30 mL UDC PO (06:06)
[2022-06-08] MEDS: lactulose oral liq 20 gm/30 mL UDC 30 GM PO (06:06)
--- NOTE | 2022-06-08 16:42 | W.ED.ABDPA2 ---
HPI - Abdominal Pain General: Chief Complaint: Abdominal Pain Stated Complaint: abdomen pain Time Seen by Provider: 06/08/22 01:28 Source: patient History of Present Illness: 81 year old male presents with Constipation. He notes diffuse generalized abdominal pain with some nausea. No vomiting. He notes that he has not had a normal bowel movement in two days. No blood in the stool. No fever. Quality: aching Radiation: none Migration to: no migration Exacerbating factors: nothing Relieving factors: nothing Associated Symptoms: Reports bloating, change in bowel habits, constipation, nausea and poor appetite; Denies diarrhea, fever(s), hematochezia and vomiting Review of Systems Const: Denies: fever(s) Eyes: Denies: change in vision Card: Denies: chest pain or palpitations Resp: Denies: dyspnea, productive cough, non-productive cough or wheezing GI: Reports: nausea, constipation, bloating and change in bowel habits; Denies: vomiting, diarrhea or hematochezia Skin/Breast: Denies: rash Neuro: Denies: headache(s), weakness in extremities, dizziness or confusion [facility], LAT[facility] PFSH: Medical History (Updated 06/08/22 @ 05:27 by Sarath Cedillo DO) Atrial fibrillation with rapid ventricular response COPD (chronic obstructive pulmonary disease) Surgical History History of cholecystectomy Thinks he might have some of his colon removed with this surgery History of hernia surgery He said he has had a few of these History of tonsillectomy and adenoidectomy Family History Denies family history of Anesthesia complication Bleeding disorder Social History Smoking and tobacco status: current every day smoker cigarettes Packs smoked per day: 0.5 Alcohol intake: current Alcohol intake frequency: few times a month Lives independently: Yes Household members: family service: Yes Current occupational status: retired History of recent travel: No Physical Exam Const: COMMON NORMALS: no acute distress GENERAL APPEARANCE: cooperative and frail appearing; not ill appearing NUTRITIONAL APPEARANCE: thin HENMT: COMMON NORMALS: normocephalic, atraumatic and Normal external nose present HEAD & SCALP: normocephalic and atraumatic FACE & SINUS: normal facial exam and face symmetric NOSE: Normal external nose present Eye: COMMON NORMALS: Equal, round and reactive pupils present and EOMs intact bilaterally PUPIL: Yes Equal, round and reactive pupils present Neck/C-Spine: GENERAL: Yes trachea midline Chest: CHEST: Yes Symmetrical chest wall rise Resp: COMMON NORMALS: normal respiratory effort, No retractions, No use of accessory muscles and clear to auscultation bilaterally AUSCULTATION: clear to auscultation bilaterally Cardio: COMMON NORMALS: regular rate and regular rhythm RATE: regular rate RHYTHM: regular rhythm GI: COMMON NORMALS: Soft to palpation AUSCULTATION: Yes Hypoactive bowel sounds present PALPATION: Yes Soft to palpation and Yes Tenderness to palpation present (GI) (diffuse) Extremity: COMMON NORMALS: no pedal edema Neuro: MONSE COMA SCALE: document GCS findings [place] coma scale eye opening: Spontaneous [place] coma scale verbal response: Orientated [place] coma scale motor response: Obey commands [place] coma scale total score: 15 SENSORY EXAM: Yes extremities (intact) Psych: COMMON NORMALS: speech normal SPEECH: Yes normal speech Skin: COMMON NORMALS: no rashes or lesions noted GENERAL SKIN EXAM: no rashes or lesions noted Course Vital Signs: Vital signs: Vital Signs Temperature 97.9 F 06/08/22 00:43 Pulse Rate 74 06/08/22 02:19 Respiratory Rate 18 06/08/22 02:19 Blood Pressure 164/83 06/08/22 02:19 Pulse Oximetry 98 06/08/22 02:19 Oxygen Delivery Me thod 06/08/22 00:43 MDM - Abdominal Pain Medical Decision Making Patient is afebrile. He is hypertensive but otherwise vitals are good. His white blood cell count is 12. BMP is not remarkable. his alkaline phosphatase is mildly elevated. And his lactic acid is 1.5. C reactive protein is 3. Lipase is 28. KUB shows obstipation. He'll be treated for this. To return a formatting. Lab Data 06/08/22 01:59 06/08/22 01:59 Labs/Radiology: Radiology Impressions KUB X-Ray 06/08/22 03:03 IMPRESSION: Findings suggestive of obstipation. However, as there are dilated loops of small bowel, partial small bowel obstruction is not excluded. CT scan of the abdomen pelvis may be helpful if clinically indicated. Laboratory Results WBC 12.3 10^3/uL (4.0-10.0) H 06/08/22 01:59 RBC 4.53 10^6/uL (4.1-5.3) 06/08/22 01:59 Hgb 13.7 g/dL (11.7-16.6) 06/08/22 01:59 Hct 44.3 % (42.0-52.0) 06/08/22 01:59 MCV 97.8 fl (80-94) H 06/08/22 01:59 MCH 30.2 pg (28.0-34.0) 06/08/22 01:59 MCHC 30.9 g/dL (30.0-36.0) 06/08/22 01:59 RDW 14.3 % (12.1-15.1) 06/08/22 01:59 Plt Count 327 10^3/cmm (130-400) 06/08/22 01:59 MPV 9.4 fL (7.4-10.4) 06/08/22 01:59 Neut % (Auto) 84.9 % 06/08/22 01:59 Lymph % (Auto) 7.0 % 06/08/22 01:59 [place] % (Auto) 6.6 % 06/08/22 01:59 Eos % (Auto) 0.9 % 06/08/22 01:59 Baso % (Auto) 0.2 % 06/08/22 01:59 Neut # (Auto) 10.48 10^3/uL (1.8-7.7) H 06/08/22 01:59 Lymph # (Auto) 0.9 10^3/uL (0.8-4.8) 06/08/22 01:59 [place] # (Auto) 0.8 10^3/uL (0.2-0.9) 06/08/22 01:59 Eos # (Auto) 0.1 10^3/uL (0.0-0.8) 06/08/22 01:59 Baso # (Auto) 0.0 10^3/uL (0.0-0.1) 06/08/22 01:59 Nucleated RBC % (auto) 0 % 06/08/22 01:59 Nucleated RBCs # 0.0 /100WBC 06/08/22 01:59 Sodium 140 mmol/L (136-145) 06/08/22 01:59 Potassium 4.9 mmol/L (3.5-5.1) 06/08/22 01:59 Chloride 102 mmol/L (98-107) 06/08/22 01:59 Carbon Dioxide 28 mmol/L (22-29) 06/08/22 01:59 Anion Gap 14.9 (5-19) 06/08/22 01:59 BUN 26 mg/dL (8-23) H 06/08/22 01:59 Creatinine 1.1 mg/dL (0.7-1.2) 06/08/22 01:59 GFR Calculation Not Reportable 06/08/22 01:59 Glucose 146 mg/dL (65-115) H 06/08/22 01:59 Calculated Osmolality 297 mOsm/kg (285-295) H 06/08/22 01:59 Lactate 1.5 mmol/L (0.5-2.2) 06/08/22 01:59 Calcium 9.1 mg/dL (8.5-10.5) 06/08/22 01:59 Total Bilirubin 0.2 mg/dL (0.15-1.2) 06/08/22 01:59 AST 16 U/L (0-40) 06/08/22 01:59 ALT 12 U/L (0-41) 06/08/22 01:59 Alkaline Phosphatase 154 U/L (40-130) H 06/08/22 01:59 C-Reactive Protein 3.0 mg/L (0.0-4.9) 06/08/22 01:59 Total Protein 7.1 g/dL (6.6-8.7) 06/08/22 01:59 Albumin 3.9 g/dL (3.5-5.2) 06/08/22 01:59 Globulin 3.2 g/dL (1.3-4.6) 06/08/22 01:59 Lipase 28 U/L (13-60) 06/08/22 01:59 Discharge Plan Discharge Patient Disposition: Home Clinical Impression: Obstipation Condition: Stable Prescriptions: New Citrate of Magnesia Solution 296 ml PO DAILY Qty: 296 0RF No Action multivitamin [Multiple Vitamins] Tablet 1 tab PO DAILY albuterol sulfate 90 mcg/actuation aerosol powdr breath activated 2 inh INHALATION Q6H PRN (Reason: Shortness Of Breath Or Wheezing) polyethylene glycol 3350 17 gram Powder In Packet 17 g PO DAILY Qty: 14 0RF levofloxacin 500 mg Tablet 500 mg PO DAILY@0600 Qty: 3 0RF ferrous gluconate 324 mg (37.5 mg iron) Tablet 324 mg PO BIDWM Qty: 60 0RF Cardizem CD 300 mg capsule,extended release 24hr 300 mg PO DAILY Qty: 30 0RF Eliquis 5 mg tablet 5 mg PO BID Qty: 60 0RF Discharge Orders: Discharge ED (Routine); Ordered 06/08/22 Ordered By: Sarath Cedillo Referrals: Eder Ortiz [Primary Care Provider] - 4-7 days Patient Instructions: Obstipation (ED) Activity Restrictions/Additional Instructions: Return for fever greater than 100, vomiting liquids or medications, worsening pain despite treatment, other concerning symptoms. Take the medication you were dispensed when you get home. If no relief within 8 to 12 hours, fill the prescription you were given, and take that medication as well. Coding Level of Care Code ED Astronomy Department Chair for Mejia Barber
== END 2022-06-08 06:06 | disposition home or self-care (01) ==
PROVIDERS: Emergency Provider Emergency Medicine; PCP Internal Medicine
DX: K59.00 Constipation, unspecified (principal)
CPT/HCPCS: 74018; 80053; 83605; 83690; 85025; 86140; 99284; J7030

== ENCOUNTER → 2022-06-25 10:18 | Outpatient (BNVA) | payer OTHER, SELFPAY | PROVIDERS: PCP Internal Medicine; Visit Provider Podiatrist Foot & Ankle Surgery | DX: I73.9 Peripheral vascular disease, unspecified (principal); L60.3 Nail dystrophy | CPT/HCPCS: 11721 ==

== ENCOUNTER → 2022-07-23 09:07 | Outpatient (BNVA) | payer OTHER, SELFPAY | PROVIDERS: PCP Internal Medicine; Visit Provider Orthopaedic Surgery | DX: S72.142A Displaced intertrochanteric fracture of left femur, initial encounter for closed fracture (principal); X58.XXXA Exposure to other specified factors, initial encounter | CPT/HCPCS: 73502; 99024 ==

== ENCOUNTER → 2022-08-26 12:56 | Outpatient (BNVA) | payer OTHER, SELFPAY | PROVIDERS: PCP Internal Medicine; Visit Provider Internal Medicine | DX: I48.91 Unspecified atrial fibrillation (principal); I26.99 Other pulmonary embolism without acute cor pulmonale; F17.210 Nicotine dependence, cigarettes, uncomplicated | CPT/HCPCS: 93005; 99204 ==

== ENCOUNTER → 2022-10-22 10:03 | Outpatient (BNVA) | payer OTHER, SELFPAY | PROVIDERS: PCP Internal Medicine; Visit Provider Podiatrist Foot & Ankle Surgery | DX: I73.9 Peripheral vascular disease, unspecified (principal); L60.8 Other nail disorders; L60.3 Nail dystrophy | CPT/HCPCS: 11721 ==

== ENCOUNTER → 2022-12-03 09:39 | Outpatient (BNVA) | payer OTHER, SELFPAY | PROVIDERS: PCP Internal Medicine; Visit Provider Podiatrist Foot & Ankle Surgery | DX: I73.9 Peripheral vascular disease, unspecified (principal); L60.8 Other nail disorders; L60.3 Nail dystrophy | CPT/HCPCS: 11721 ==

== ENCOUNTER → 2023-03-04 10:48 | Outpatient (BNVA) | payer OTHER, SELFPAY | PROVIDERS: PCP Internal Medicine; Visit Provider Podiatrist Foot & Ankle Surgery | DX: L60.8 Other nail disorders (principal); L60.3 Nail dystrophy; I73.9 Peripheral vascular disease, unspecified | CPT/HCPCS: 11721 ==

== ENCOUNTER → 2023-06-03 10:17 | Outpatient (BNVA) | payer OTHER, SELFPAY | PROVIDERS: PCP Internal Medicine; Visit Provider Podiatrist Foot & Ankle Surgery | DX: L60.8 Other nail disorders (principal); L60.3 Nail dystrophy; I73.9 Peripheral vascular disease, unspecified | CPT/HCPCS: 11721 ==

== ENCOUNTER → 2023-09-23 11:12 | Outpatient (BNVA) | payer OTHER, SELFPAY | PROVIDERS: PCP Internal Medicine; Visit Provider Podiatrist Foot & Ankle Surgery | DX: L60.8 Other nail disorders (principal); L60.3 Nail dystrophy; I73.9 Peripheral vascular disease, unspecified | CPT/HCPCS: 11721 ==

== ENCOUNTER → 2023-12-23 10:14 | Outpatient (BNVA) | payer OTHER, SELFPAY | PROVIDERS: PCP Internal Medicine; Visit Provider Podiatrist Foot & Ankle Surgery | DX: L60.3 Nail dystrophy (principal); I73.9 Peripheral vascular disease, unspecified | CPT/HCPCS: 11721 ==

== ENCOUNTER → 2024-03-16 09:12 | Outpatient (BNVA) | payer OTHER, SELFPAY | PROVIDERS: PCP Internal Medicine; Visit Provider Podiatrist Foot & Ankle Surgery | DX: L60.3 Nail dystrophy (principal); I73.9 Peripheral vascular disease, unspecified | CPT/HCPCS: 11721 ==

== ENCOUNTER → 2024-06-15 08:57 | Outpatient (BNVA) | payer OTHER, SELFPAY | PROVIDERS: PCP Internal Medicine; Visit Provider Podiatrist Foot & Ankle Surgery | DX: L60.3 Nail dystrophy (principal); I73.9 Peripheral vascular disease, unspecified | CPT/HCPCS: 11721 ==

== ENCOUNTER → 2024-10-12 09:37 | Outpatient (BNVA) | payer OTHER, SELFPAY | PROVIDERS: PCP Internal Medicine; Visit Provider Podiatrist Foot & Ankle Surgery | DX: I73.9 Peripheral vascular disease, unspecified (principal); L60.3 Nail dystrophy | CPT/HCPCS: 11721 ==

== ENCOUNTER → 2025-01-04 09:51 | Outpatient (BNVA) | payer OTHER, SELFPAY | PROVIDERS: PCP Internal Medicine; Visit Provider Podiatrist Foot & Ankle Surgery | DX: I73.9 Peripheral vascular disease, unspecified (principal); L60.3 Nail dystrophy; L60.8 Other nail disorders | CPT/HCPCS: 11721 ==

== ENCOUNTER → 2025-04-12 09:51 | Outpatient (BNVA) | payer OTHER, SELFPAY | PROVIDERS: PCP Internal Medicine; Visit Provider Podiatrist Foot & Ankle Surgery | DX: I73.9 Peripheral vascular disease, unspecified (principal); L60.3 Nail dystrophy; L60.8 Other nail disorders | CPT/HCPCS: 11721 ==

== ENCOUNTER 2025-04-24 12:49 | Observation (INO) | payer OTHER, SELFPAY ==
[2025-04-24] VITALS (12 sets, daily range): BP systolic 92–167; BP diastolic 50–87; PULSE 72–99; RESP 16–20; TEMP 36.4–36.8; O2SAT 92–100; BMI 14.1
--- NOTE | 2025-04-24 12:52 | XRR_ITS ---
PROCEDURE INFORMATION: Exam: XR Chest Exam date and time: 04/24/2025 1:30 PM Age: 84 years old Clinical indication: Shortness of breath; Additional info: SOB TECHNIQUE: Imaging protocol: Radiologic exam of the chest. Views: 1 view. COMPARISON: CR XR chest 1V portable [id number] 04/08/2022 8:06 PM FINDINGS: Lungs: Unremarkable. No consolidation or mass. Pleural spaces: Unremarkable. No pleural effusion. No pneumothorax. Heart/Mediastinum: Unremarkable. No cardiomegaly. Bones/joints: Unremarkable. XR/XR chest 1V portable [id number] IMPRESSION: No acute findings.
--- NOTE | 2025-04-24 12:53 | ECG_ITS ---
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 Measurements Intervals [place] Rate: 93 P: 0 MO: 0 QRS: 0 QRSD: 0 T: 93 QT: 368 QTc: 460 Interpretive Statements ATRIAL FIBRILLATION, PVCs Heavy baseline artifacts; Need to repeat the study. Further interpretation is not possible Electronically Signed On 04-24-2025 21:22:55 CDT by Jarvis Benedict M.D. [email or web address]
--- NOTE | 2025-04-24 12:54 | ED_ITS ---
HPI - Altered Mental Status 2 General: Chief Complaint: Altered Mental Status Stated Complaint: ams Time Seen by Provider: 04/24/25 12:49 Source: EMS Mode of arrival: EMS Limitations: altered mental status History of Present Illness: 84-year-old male here with EMS for alter ed mental status per EMS family had not seen him for 2 days and found him next to his bed in the floor and unsure how long he had been down he states that he is much weaker than normal and confused. Here he is able to tell me where he lives and his name but is confused to the year he has a history of A-fib along with COPD per EMS pulse ox was 90 with them. Here he denies cough or fever has no complaints at this time but is very frail appearing and looks malnourished Related Data Home Medications ?Medication ?Instructions ?Recorded ?Confirmed albuterol sulfate 90 mcg/actuation 2 inh inhalation Q6 H PRN Shortness 08/26/19 04/24/25 breath activated powder inhaler Of Breath Or Wheezing multivitamin (Multiple Vitamins 1 tab PO DAILY 2 0 04/24/25 tablet) magnesium citrate (Citrate of 296 ml PO DAILY PRN Cons tipation 04/24/25 04/24/25 Magnesia oral) Previous Rx's ?Medication ?Instructions ?Recorded apixaban 5 mg tablet (Eliquis) 5 mg PO BID #60 tabs diltiazem HCl 300 mg 300 mg PO DAILY #30 caps capsule,extended release 24 hr (Cardizem CD) ferrous gluconate 324 mg (37.5 mg 324 mg PO BIDWM #60 tabs 04/12/22 iron) tablet levofloxacin 500 mg tablet 500 mg PO DAILY@0600 #3 tab s 04/12/22 polyethylene glycol 3350 17 gram 17 g PO DAILY #14 ea 04/12/22 oral powder packet mupirocin 2 % topical ointment 1 applic topical BID 2 weeks #22 10/22/22 grams triamcinolone acetonide 0.1 % 1 applic topical BID #15 grams 04/12/25 topical cream Allergies Allergy/AdvReac Type Severity Reaction Status Date / Time No Known Allergies Allergy Verified 04/12/25 10:07 Review of Systems 2 General: Reports: ROS unobtainable due to mental status [facility] ED 2 PFS: Medical History Atrial fibrillation with rapid ventricular response COPD (chronic obstructive pulmonary disease) Surgical History History of cholecystectomy Thinks he might have some of his colon removed with this surgery History of tonsillectomy and adenoidectomy History of hernia surgery He said he has had a few of these Family History Denies family history of Anesthesia complication Bleeding disorder Social History Smoking and tobacco/nicotine status: unknown if used tobacco/nicotine Alcohol intake: current Alcohol intake frequency: few times a month Substance/Drug Use: never Lives independently: Yes Household members: family service: Yes Current occupational status: retired Physical Exam 2 Const: COMMON NORMALS: alert; negative for patient oriented x3 GENERAL APPEARANCE: disheveled and frail appearing ORIENTATION/CONSCIOUSNESS: Yes oriented to person and Yes oriented to place; not oriented to time HENMT: COMMON NORMALS: normocephalic and atraumatic HEAD & SCALP: n ormocephalic and atraumatic Eye: COMMON NORMALS: Equal, round and reactive pupils present and EOMs intact bilaterally PUPIL: Yes Equal, round and reactive pupils present Neck/C-Spine: COMMON NORMALS: full ROM and supple Chest: COMMONS NORMALS: normal inspection of the chest and normal palpation of entire chest wall Resp: COMMON NORMALS: normal respiratory effort, No retractions, No use of accessory muscles and clear to auscultation bilaterally AUSCULTATION: clear to auscultation bilaterally Cardio: COMMON NORMALS: regular rate, regular rhythm and No murmurs present (Cardio) RATE: regular rate RHYTHM: regular rhythm GI: COMMON NORMALS: Normal to inspection, nondistended, normoactive bowel sounds present, Soft to palpation, non-tender and no masses PALPATION: Yes Soft to palpation Extremity: COMMON NORMALS: normal to inspection and full ROM Neuro: COMMON NORMALS: moves all extremities and no focal motor deficits; negative for patient oriented x3 SENSORIUM/ORIENTATION: Yes alert, Yes oriented to person, Yes oriented to place and No oriented to time SPEECH: s peech normal Psych: COMMON NORMALS: Normal thought process present and cooperative T HOUGHT PROCESS: Normal thought process present Skin: COMMON NORMALS: no rashes or lesions noted and no wounds GENERAL SKIN EXAM: no rashes or lesions noted Course 2 Vital Signs: Vital signs: Vital Signs Pulse Rate 90 04/24/25 13:30 Respiratory Rate 16 04/24/25 12:51 Blood Pressure 114/64 04/24/25 13:30 Pulse Oximetry 100 04/24/25 13:30 Oxygen Delivery Me thod Room Air 04/24/25 13:30 MDM - Altered Mental Status Medical Decision Making Patient presents with altered mental status he is quite confused here. Patient kind of waxes and wanes with his confusion. Patient is quite cachectic as well. Differential includes dementia delirium subarachnoid hemorrhage or meningitis or infection. He has no signs of meningitis here his white count is normal no fever head CT was negative no signs of subarachnoid hemorrhage or stroke on the head CT. His last known normal was 2 days ago. Patient has no signs of infection chest x-ray was normal urinalysis was normal. I did review his labs and imaging. I spoke to hospitalist Dr. Agosto and will admit at this time for altered mental status. Medical Records I reviewed the patient's medical records. Lab Data I reviewed the patient's lab results. 04/24/25 13:22 04/24/25 13:22 Radiology Impressions Chest X-Ray 04/24/25 12:52 IMPRESSION: No acute findings. Head CT 04/24/25 13:40 IMPRESSION: 1. No acute findings noted 2. Cerebral atrophy with chronic ischemic changes noted Laboratory Results WBC 10.69 10^3/uL (3.29-11.43) 04/24/25 13:22 RBC 4.74 10^6/uL (3.85-5.65) 04/24/25 13:22 Hgb 14.80 g/dL (11.27-16.99) 04/24/25 13:22 Hct 44.6 % (37-53) 04/24/25 13:22 MCV 94.1 fl (82-101) 04/24/25 13:22 MCH 31.2 pg (27-33) 04/24/25 13:22 MCHC 33.2 g/dL (30-55) 04/24/25 13:22 RDW 15.3 % (12.1-15.1) H 04/24/25 13:22 Plt Count 313 10^3/cmm (157-399) 04/24/25 13:22 MPV 10.2 fL (7.4-10.4) 04/24/25 13:22 Neut % (Auto) 83.0 % 04/24/25 13:22 Lymph % (Auto) 8.3 % 04/24/25 13:22 [place] % (Auto) 7.9 % 04/24/25 13:22 Eos % (Auto) 0.0 % 04/24/25 13:22 Baso % (Auto) 0.1 % 04/24/25 13:22 Neut # (Auto) 8.88 10^3/uL (1.8-7.7) H 04/24/25 13:22 Lymph # (Auto) 0.9 10^3/uL (0.8-4.8) 04/24/25 13:22 [place] # (Auto) 0.8 10^3/uL (0.2-0.9) 04/24/25 13:22 Eos # (Auto) 0.0 10^3/uL (0.0-0.8) 04/24/25 13:22 Baso # (Auto) 0.0 10^3/uL (0.0-0.1) 04/24/25 13:22 Nucleated RBC % (auto) 0 % 04/24/25 13:22 Nucleated RBCs # 0.0 /100WBC 04/24/25 13:22 PT 12.90 SECONDS (12.1-14.9) 04/24/25 13:22 INR 0.91 (0.8-1.2) 04/24/25 13:22 Specimen Type Arterial 04/24/25 13:01 Sample Site Radial, right 04/24/25 13:01 ABG pH 7.48 (7.35-7.45) H 04/24/25 13:01 ABG pCO2 34.1 mmHg (35-45) L 04/24/25 13:01 ABG pO2 62.3 mmHg (80.0-100.0) L 04/24/25 13:01 ABG PO2/FiO2 Ratio 296 04/24/25 13:01 ABG HCO3 25.3 mmol/L (22-26) 04/24/25 13:01 ABG Base Excess 2.1 mmol/L (-2.0-2.0) H 04/24/25 13:01 Benjie Test Pos 04/24/25 13:01 Hematocrit 42.9 % (42-52) 04/24/25 13:01 Hgb O2 Saturation 91.9 % (95-100) L 04/24/25 13:01 Carboxyhemoglobin 1.1 %THgb (0.4-20.1) 04/24/25 13:01 Methemoglobin 0.1 % (0.4-1.5) L 04/24/25 13:01 Total Hemoglobin 14.0 g/dL (14-18) 04/24/25 13:01 O2 Delivery Device Room air 04/24/25 13:01 FiO2 21.0 % 04/24/25 13:01 Aircraft Instrument Tester ID [place] 04/24/25 13:01 Sodium 136 mmol/L (136-145) 04/24/25 13:22 Potassium 4.5 mmol/L (3.5-5.1) 04/24/25 13:22 Chloride 97 mmol/L (98-107) L 04/24/25 13:22 Carbon Dioxide 25 mmol/L (22-29) 04/24/25 13:22 Anion Gap 18.5 (5-19) 04/24/25 13:22 BUN 19 mg/dL (8-23) 04/24/25 13:22 Creatinine 0.9 mg/dL (0.7-1.2) 04/24/25 13:22 GFR Calculation Not Reportable 04/24/25 13:22 Glucose 109 mg/dL (65-115) 04/24/25 13:22 Calculated Osmolality 285 mOsm/kg (285-295) 04/24/25 13:22 Calcium 9.4 mg/dL (8.5-10.5) 04/24/25 13:22 Magnesium 2.0 mg/dL (1.7-2.3) 04/24/25 13:22 Total Bilirubin 0.8 mg/dL (0.15-1.2) 04/24/25 13:22 AST 23 U/L (0-40) 04/24/25 13:22 ALT 16 U/L (0-41) 04/24/25 13:22 Alkaline Phosphatase 138 U/L (40-130) H 04/24/25 13:22 Ammonia 23 umol/L (16-60) 04/24/25 13:22 Creatine Kinase 269 U/L (39-308) 04/24/25 13:22 NT-Pro-B Natriuret Pep 2405 pg/mL (0-450) H 04/24/25 13:22 Total Protein 7.3 g/dL (6.6-8.7) 04/24/25 13:22 Albumin 3.7 g/dL (3.5-5.2) 04/24/25 13:22 Globulin 3.6 g/dL (1.3-4.6) 04/24/25 13:22 TSH 4.90 uIU/mL (0.27-4.20) H 04/24/25 13:22 Urine Color Dark yellow (Yellow) A 04/24/25 13:15 Urine Appearance Clear (CLEAR) 04/24/25 13:15 Urine pH 6 (5-7) 04/24/25 13:15 Ur Specific [place] 1.020 (1.005-1.030) 04/24/25 13:15 Urine Protein Trace (Negative) 04/24/25 13:15 Urine Glucose (UA) Norm (Normal) 04/24/25 13:15 Urine Ketones 1+ (Negative) H 04/24/25 13:15 Urine Blood 2+ (Negative) H 04/24/25 13:15 Urine Nitrate Negative (Negative) 04/24/25 13:15 Urine Bilirubin 1+ (Negative) H 04/24/25 13:15 Urine Urobilinogen 1 mg/dL (Negative) H 04/24/25 13:15 Ur Leukocyte Esterase 1+ (Negative) H 04/24/25 13:15 Urine RBC 5-10 /hpf (0-2) H 04/24/25 13:15 Urine WBC 10-15 /hpf (0-5) H 04/24/25 13:15 Ur Squamous Epith Cells 0-4 /hpf (0-5) H 04/24/25 13:15 Amorphous Sediment Not Reportable 04/24/25 13:15 Urine Bacteria 1+ /hpf (NONE) H 04/24/25 13:15 All radiology interpretation(s) finalized by discharge Discharge Plan Discharge Patient Disposition: Admitted As Inpatient Clinical Impression: Altered mental status Condition: Stable Coding Level of Care Code ED Auto Electrical Technician for Mejia Barber
[2025-04-24 13:12] LABS: ABG PCO2 34.1 mmHg (35-45); ABG PH Result 7.48 (7.35-7.45); Arterial Blood Gas Hematocrit 42.9 % (42-52); Blood Gas Allen Test Pos; Blood Gas Operator Identificat WALCI; Blood Gas Sample Site Radial, right; Blood Gas Sample Type Arterial; Carboxyhemoglobin 1.1 %THgb (0.4-20.1); HCO3 ABG 25.3 mmol/L (22-26); Methemoglobin 0.1 % (0.4-1.5); PO2 ABG 62.3 mmHg (80.0-100.0); PO2 FiO2 Ratio Arterial Blood 296
[2025-04-24 13:29] LABS: Hematocrit 44.6 % (37-53); Hemoglobin 14.80 g/dL (11.27-16.99); Mean Corpuscular HGB Conc 33.2 g/dL (30-55); Mean Corpuscular Hemoglobin 31.2 pg (27-33); Mean Corpuscular Volume 94.1 fl (82-101); Nucleated Red Blood Cells % 0 %; Platelet Count 313 10^3/cmm (157-399); Red Blood Count 4.74 10^6/uL (3.85-5.65); White Blood Count 10.69 10^3/uL (3.29-11.43)
--- NOTE | 2025-04-24 13:32 | PC.PHAR ---
Addendum entered by Kellee Sanders 04/24/25 13:43: [facility] Addendum entered by Kellee Sanders 04/24/25 13:42: Verified [facility] meds-unsure if pt has taken anything today. Original Note: [facility] is [facility]calling for current med list 1:30pm 04/24/25
[2025-04-24 13:35] LABS: Specific Gravity, Urine 1.020 (1.005-1.030)
[2025-04-24 13:36] LABS: Add Urine Microscopic? YES; Glucose Urine UA Norm (Normal); Nitrate Urine Negative (Negative)
--- NOTE | 2025-04-24 13:40 | CTR_ITS ---
PROCEDURE INFORMATION: Exam: CT Head Without Contrast Exam date and time: 04/24/2025 1:47 PM Age: 84 years old Clinical indication: Altered mental status/memory loss; Confusion or disorientation; Additional info: AMS TECHNIQUE: Imaging protocol: Computed tomography of the head without contrast. Radiation optimization: All CT scans at this facility use at least one of these dose optimization techniques: automated exposure control; mA and/or kV adjustment per patient size (includes targeted exams where dose is matched to clinical indication); or iterative reconstruction. COMPARISON: No relevant prior studies available. RADIATION DOSE METRICS: Total DLP (mGy-cm): 936.8 FINDINGS: Brain: There is prominent chronic periventricular white matter ischemic change. There is no evidence of mass effect, hemorrhage or infarct. Mild diffuse cerebral atrophy is noted. Cerebral ventricles: No ventriculomegaly. No midline shift. Paranasal sinuses: Visualized sinuses are unremarkable. No fluid levels. Mastoid air cells: Visualized mastoid air cells are well aerated. Bones: Unremarkable. No acute fracture. Soft tissues: Unremarkable. CT/CT head wo con* [id number] IMPRESSION: 1. No acute findings noted 2. Cerebral atrophy with chronic ischemic changes noted
[2025-04-24 13:48] LABS: INR 0.91 (0.8-1.2); Prothrombin Time 12.90 SECONDS (12.1-14.9)
[2025-04-24 13:55] LABS: Ammonia 23 umol/L (16-60)
[2025-04-24 14:08] LABS: Alanine Aminotransferase 16 U/L (0-41); Albumin Level 3.7 g/dL (3.5-5.2); Alkaline Phosphatase 138 U/L (40-130); Anion Gap 18.5 (5-19); Aspartate Amino Transferase 23 U/L (0-40); Blood Urea Nitrogen 19 mg/dL (8-23); Calcium 9.4 mg/dL (8.5-10.5); Carbon Dioxide 25 mmol/L (22-29); Chloride 97 mmol/L (98-107); Creatinine Clr Calc Pharmacy 43.8891; Globulin 3.6 g/dL (1.3-4.6); Glucose 109 mg/dL (65-115); Magnesium 2.0 mg/dL (1.7-2.3); NT Pro B Type Natriuretic Pept 2405 pg/mL (0-450); Osmolality Calculated 285 mOsm/kg (285-295); Potassium 4.5 mmol/L (3.5-5.1); Sodium 136 mmol/L (136-145); Thyroid Stimulating Hormone 4.90 uIU/mL (0.27-4.20); Total Protein 7.3 g/dL (6.6-8.7)
[2025-04-24 15:38] LABS: Alcohol Level < 10 mg/dL (0-10)
[2025-04-24 15:43] LABS: PCP Screen Urine Negative (Negative)
--- NOTE | 2025-04-24 16:40 | PC.NURSE ---
This nurse had just walked into room to check on pt, pt was resting in bed with eyes closed. this nurse walked out to nurses station, door left open and pt had removed cardiac leads and pulled out the second line that was placed. pressure and dressing applied to area.
[2025-04-24 16:53] LABS: Lactic Sepsis W/Reflex 3.8 mmol/L (0.5-2.2)
[2025-04-24 16:55] LABS: Reflex Lactate Order REFLEX LACTIC ORDERD
[2025-04-24 17:00] LABS: Procalcitonin 0.11 ng/mL (0-0.5)
--- NOTE | 2025-04-24 17:30 | PM.HP ---
Providers/Chief Complaint Admitting Physician: Luz Agosto MD Primary Care Provider: Eder Ortiz Chief Complaint: ams History of Present Illness History taken to chart review and conversation with ER physician Thaddeus Shahid is a 84 year old male past medical history of hypertension, afib, hip fracture, COPD, provoked PE post hip fracture not on anticoagulation currently presents to the ER today via EMS after caregivers found him down at home and confused. As per the ER physician his 2 caregivers have gone out of town for 2 days and when they came back they found him confused on the ground. In the ER, he was seen sitting in bed, fidgeting with his IV line, confused and dehydrated. Medications/Allergies Home Medications ?Medication ?Instructions ?Recorded ?Confirmed ?Last Taken ?Type albuterol sulfate 90 mcg/actuation 2 inh inhalation Q6H PRN Shortness 08/26/19 04/24/25 Unknown History breath activated powder inhaler Of Breath Or Wheezing multivitamin (Multiple Vitamins 1 tab PO DAILY 08/26/19 04/24/25 Unknown History tablet) apixaban 5 mg tablet (Eliquis) 5 mg PO BID #60 tabs 04/12/22 04/24/25 Unknown Rx diltiazem HCl 300 mg 300 mg PO DAILY #30 caps 04/12/22 04/24/25 Unknown Rx capsule,extended release 24 hr (Cardizem CD) ferrous gluconate 324 mg (37.5 mg 324 mg PO BIDWM #60 tabs 04/12/22 04/24/25 Unknown Rx iron) tablet levofloxacin 500 mg tablet 500 mg PO DAILY@0600 #3 tabs 04/12/22 04/24/25 Unknown Rx polyethylene glycol 3350 17 gram 17 g PO DAILY #14 ea 04/12/22 04/24/25 Unknown Rx oral powder packet mupirocin 2 % topical ointment 1 applic topical BID 2 weeks #22 10/22/22 04/24/25 Unknown Rx grams triamcinolone acetonide 0.1 % 1 applic topical BID #15 grams 04/12/25 04/24/25 Unknown Rx topical cream magnesium citrate (Citrate of 296 ml PO DAILY PRN Constipation 04/24/25 04/24/25 Unknown History Magnesia oral) Allergies Allergy/AdvReac Type Severity Reaction Status Date / Time No Known Allergies Allergy Verified 04/12/25 10:07 PFSH Acute PFSH: Medical History (Updated 04/24/25 @ 22:25 by Luz Agosto MD) Dementia Intertrochanteric fracture of left hip Closed intertrochanteric fracture of left hip Difficulty in swallowing Pulmonary embolism Atrial fibrillation with rapid ventricular response COPD (chronic obstructive pulmonary disease) Surgical History (Updated 04/24/25 @ 22:25 by Luz Agosto MD) Status post open reduction with internal fixation of fracture History of cholecystectomy Thinks he might have some of his colon removed with this surgery History of tonsillectomy and adenoidectomy History of hernia surgery He said he has had a few of these Family History Denies family history of Anesthesia complication Bleeding disorder Social History Smoking and tobacco/nicotine status: unknown if used tobacco/nicotine Alcohol intake: current Alcohol intake frequency: few times a month Substance/Drug Use: never Lives independently: Yes Household members: family service: Yes Current occupational status: retired Vitals/I&O/Wt Last Vital Signs Pulse 88 04/24/25 16:43 Resp 16 04/24/25 12:51 BP 119/50 04/24/25 16:43 Pulse Ox 99 04/24/25 16:43 O2 Del Method Room Air 04/24/25 16:43 04/24/25 04/24/25 04/24/25 06:59 14:59 22:59 Intake Total 1000 / 1000 Balance 1000 / 1000 Weight last 48 hrs Weight 49.895 kg Physical Exam Narrative: General: No acute distress, AO x1, fidgety, dehydrated, chachectic, muscle wasting, bitemporal wasting HEENT: PERRLA, pupils bilaterally equal and reactive, pallors not present Chest: B/l bronchial breath sounds with ronchi CVS: S1-S2 regular, no murmurs, no tachycardia, no gallops, no rubs Abdomen: Soft, nontender, no organomegaly, bowel sounds present Neuro: No focal deficits, no facial deformity, AO x3, power 5/5 in all limbs Data 04/24/25 13:22 04/24/25 13:22 Micro: Microbiology 04/24/25 13:15 Bacterial Antigens - Final Urine Kidney A&P Assessment and plan 1. Altered mental status: Unknown etiology. Stroke ruled out with a negative CT head. Infectious etiology ruled out with a negative UA. No concern for pneumonia. Patient saturating well on room air. Check urine drug screen, alcohol level. Check viral panel. Check blood culture. Most likely in setting of worsening dementia in setting of dehydration. Fall precaution, aspiration precaution. Sitter at bedside. NS at 50 cc/h. Monitor BMP daily Haldol 1 mg IM every 4 hours as needed. 2. Dementia: 3. Atrial fibrillation: Continue home dose of Cardizem. Telemetry. 4. COPD (chronic obstructive pulmonary disease): Not in exacerbation. Oxygen supplementation keeping saturation over 90 Relosorb. DuoNebs as needed. Plan: Full code Cardiac diet Famotidine for PUD PPx Heparin for DVT PPx Tried calling numbers of care givers in chart but no answer and not able to leave a voice msg PDMP PDMP Reviewed: Not Reviewed Attestations Medical Necessity Statement*: Admit under obs for management and evaluation of AMS in setting of dehydration and worsening dementia Diagnoses Altered mental status R41.82 Dementia F03.90 Atrial fibrillation I48.91 COPD (chronic obstructive pulmonary disease) J44.9
[2025-04-24 17:31] LABS: Lactic Acid level (Lactate) 3.3 mmol/L (0.5-2.2)
--- NOTE | 2025-04-24 17:31 | PC.NURSE ---
Pt ordered ativan while trying to get a second IV line, pt restless and pull off leads. Sal placed ativan order. pt then began resting with no behaviors, ativan held.
--- NOTE | 2025-04-24 17:33 | PC.NURSE ---
Patient transferred from ED to [facility] via a bed at 1730.
[2025-04-24] MEDS: heparin 5,000 unit/mL INJ 1 mL 5000 UNIT SUBCUT (18:06)
[2025-04-24 18:42] LABS: Iron 28 ug/dL (59-158); Total Iron Binding Capacity 228 mcg/dl; Unsaturated Iron Binding 200 ug/dL (112-347)
[2025-04-24 18:58] LABS: Vitamin B12 585 pg/mL (232-1245)
[2025-04-24 19:04] LABS: Estmated Average Glucose 117; Hemoglobin A1C 5.7 % (4.0-6.0)
[2025-04-24 19:07] LABS: Ammonia 27 umol/L (16-60)
[2025-04-24] MEDS: morphine 4 mg/mL SDV 1 mL 2 MG IVP (21:41)
[2025-04-25] VITALS (7 sets, daily range): BP systolic 108–156; BP diastolic 52–104; PULSE 75–721; RESP 16–18; TEMP 36.3–37.5; O2SAT 91–94
[2025-04-25 00:10] LABS: Respiratory Syncytial Virus Ce NEGATIVE (Negative); SARS-CoV-2 PCR NEGATIVE (Negative)
[2025-04-25] MEDS: haloperidol inj 5 mg/mL INJ 1 mL 1 MG IM ×2 (01:50→21:47)
[2025-04-25 03:28] LABS: Hematocrit 38.4 % (37-53); Hemoglobin 12.70 g/dL (11.27-16.99); Mean Corpuscular HGB Conc 33.1 g/dL (30-55); Mean Corpuscular Hemoglobin 31.3 pg (27-33); Mean Corpuscular Volume 94.6 fl (82-101); Nucleated Red Blood Cells % 0 %; Platelet Count 269 10^3/cmm (157-399); Red Blood Count 4.06 10^6/uL (3.85-5.65); White Blood Count 9.11 10^3/uL (3.29-11.43)
[2025-04-25 03:34] LABS: Alanine Aminotransferase 13 U/L (0-41); Albumin Level 3.1 g/dL (3.5-5.2); Alkaline Phosphatase 112 U/L (40-130); Anion Gap 17.4 (5-19); Aspartate Amino Transferase 22 U/L (0-40); Blood Urea Nitrogen 22 mg/dL (8-23); Calcium 8.6 mg/dL (8.5-10.5); Carbon Dioxide 21 mmol/L (22-29); Chloride 99 mmol/L (98-107); Creatinine Clr Calc Pharmacy 41.3517; Globulin 2.9 g/dL (1.3-4.6); Glucose 89 mg/dL (65-115); Magnesium 1.9 mg/dL (1.7-2.3); Osmolality Calculated 279 mOsm/kg (285-295); Potassium 4.4 mmol/L (3.5-5.1); Sodium 133 mmol/L (136-145); Total Protein 6.0 g/dL (6.6-8.7)
[2025-04-25 03:56] LABS: Cholesterol 111 mg/dL (0-200); HDL Cholesterol 44 mg/dL (60-100); Triglycerides 79 mg/dL (0-150)
[2025-04-25 04:01] LABS: Procalcitonin 0.15 ng/mL (0-0.5)
[2025-04-25] MEDS: heparin 5,000 unit/mL INJ 1 mL 5000 UNIT SUBCUT ×2 (04:30→17:55)
[2025-04-25] MEDS: polyethylene glycol 3350 Pkt 17 gm PO (04:30)
[2025-04-25] MEDS: morphine 4 mg/mL SDV 1 mL 2 MG IVP (06:52)
--- NOTE | 2025-04-25 16:49 | P.PN_ITS ---
Subjective 2 Subjective: Awake, alert, not participating in conversation. Vitals/I&O/Wt Last Vital Signs Temp 98.1 F 04/25/25 15:29 Pulse 99 04/25/25 15:29 Resp 18 04/25/25 15:29 BP 140/67 04/25/25 15:29 Pulse Ox 94 04/25/25 15:29 O2 Del Method Room Air 04/25/25 15:29 04/25/25 04/25/25 04/25/25 06:59 14:59 22:59 Intake Total 0 / 0 Output Total 250 / 250 Balance -250 / 750 0 / 0 Weight last 48 hrs Weight 43.001 kg Weight 43.001 kg Weight 41.787 kg Weight 49.895 kg Physical Exam 2 Narrative: General: No acute distress, chachectic, muscle wasting, bitemporal wasting HEENT: PERRLA, pupils bilaterally equal and reactive, pallors not present Chest: B/l bronchial breath sounds with ronchi CVS: S1-S2 regular, no murmurs, no tachycardia, no gallops, no rubs Abdomen: Soft, nontender, no organomegaly, Neuro: No focal deficits, no facial deformity, AO x3, power 5/5 in all limbs Data 04/25/25 01:24 04/25/25 01:24 Micro: Microbiology 04/24/25 13:15 Urine Culture - Preliminary Urine,Clean Catch 04/25/25 01:20 Blood Culture - Preliminary Blood SPECIMEN COLLECTED 04/25/25 01:24 Blood Culture - Preliminary Blood SPECIMEN COLLECTED 04/24/25 13:15 Bacterial Antigens - Final Urine Kidney A&P Assessment and plan 1. Dementia: 2. Altered mental status: Plan: 84 year old male presenting after being found down at home. 1. Altered mental status: Unknown etiology. Stroke ruled out with a negative CT head. Infectious etiology ruled out with a negative UA. No concern for pneumonia. Patient saturating well on room air. - urine drug screen negative, alcohol level negative. - viral panel negative - blood culture pending. Most likely in setting of worsening dementia in setting of dehydration. Fall precaution, aspiration precaution. Sitter at bedside. NS at 50 cc/h. Monitor BMP daily Haldol 1 mg IM every 4 hours as needed. 2. Dementia: - unclear baseline. 3. Atrial fibrillation: Continue home dose of Cardizem. Telemetry. 4. COPD (chronic obstructive pulmonary disease): Not in exacerbation. Oxygen supplementation keeping saturation over 90. DuoNebs as needed. Diet: Cardiac diet PPx: Famotidine for PUD PPx Heparin for DVT PPx Disposition Full code - more alert today, chosing not to discuss with caregivers - family at bedside, ongoing discussions concerning plan of care. PDMP PDMP Reviewed: Not Reviewed Attestations 2 Medical Necessity Statement*: Ongoing observation for AMS, found down. Time Spent in Patient Care: 16 - 35 minutes (>than 50% of time sp ent in counselling and/or direct pt care on unit) . Coding Level of Care Code Acute Code for g Fwd Diagnoses Dementia F03.90 Altered mental status R41.82
--- NOTE | 2025-04-25 22:45 | PC.NURSE ---
Attempted numerous times to do full assessment on patient but was unable to. Patient screams out let me sleep . Unable to get telemetry and pulse ox to stay on patient due to him pulling at equipment. Patient is hard to redirect. Around 2139 patient was out of bed with aids attempting to help him to the bathroom, patient still is too confused to follow commands. Attempted to have patient use bedside commode but was unsuccessful. Notice patient has a gurgling noise with breathing and course crackles in lungs. Notified Dr. Locke and received orders to do breathing treatment. Patient unable to tolerate breathing treatment. Will monitor respiratory status and attempt to do pulmonary toileting.
[2025-04-26] VITALS (7 sets, daily range): BP systolic 100–141; BP diastolic 56–82; PULSE 74–86; RESP 18–32; TEMP 36.4–36.8; O2SAT 93–96
--- NOTE | 2025-04-26 01:12 | PC.NURSE ---
Patient pulled IV out at beginning of shift and was agitated. Attempted to place IV later and patient refused.
[2025-04-26] MEDS: dilTIAZem ER (24HR) 300 mg Capsule PO (04:29)
--- NOTE | 2025-04-26 04:39 | PC.NURSE ---
Patient alert to self, place, and month. At this time patient reports he has three daughters Kimi the oldest, Itzel, and Jonathan his youngest all live in [place]. He states they live in [facility], and I believe [facility]. Per patient when asked if he cooks or how often he eats he states he has breakfast and maybe supper.
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
[2025-04-26 11:37] LABS: Hematocrit 40.5 % (37-53); Hemoglobin 13.10 g/dL (11.27-16.99); Mean Corpuscular HGB Conc 32.3 g/dL (30-55); Mean Corpuscular Hemoglobin 31.5 pg (27-33); Mean Corpuscular Volume 97.4 fl (82-101); Nucleated Red Blood Cells % 0 %; Platelet Count 226 10^3/cmm (157-399); Red Blood Count 4.16 10^6/uL (3.85-5.65); White Blood Count 10.68 10^3/uL (3.29-11.43)
[2025-04-26 12:01] LABS: Alanine Aminotransferase 14 U/L (0-41); Albumin Level 3.3 g/dL (3.5-5.2); Alkaline Phosphatase 120 U/L (40-130); Anion Gap 16.8 (5-19); Aspartate Amino Transferase 21 U/L (0-40); Blood Urea Nitrogen 27 mg/dL (8-23); Calcium 8.6 mg/dL (8.5-10.5); Carbon Dioxide 22 mmol/L (22-29); Chloride 101 mmol/L (98-107); Creatinine Clr Calc Pharmacy 42.8222; Globulin 3.0 g/dL (1.3-4.6); Glucose 92 mg/dL (65-115); Magnesium 1.9 mg/dL (1.7-2.3); Osmolality Calculated 287 mOsm/kg (285-295); Potassium 3.8 mmol/L (3.5-5.1); Sodium 136 mmol/L (136-145); Total Protein 6.3 g/dL (6.6-8.7)
--- NOTE | 2025-04-26 12:57 | P.PN_ITS ---
Subjective 2 Subjective: More alert today, still confused. Vitals/I&O/Wt Last Vital Signs Temp 97.6 F 04/26/25 07:38 Pulse 76 04/26/25 09:30 Resp 18 04/26/25 09:30 BP 100/58 04/26/25 07:38 Pulse Ox 96 04/26/25 09:30 O2 Del Method Room Air 04/26/25 09:30 04/25/25 04/26/25 04/26/25 22:59 06:59 14:59 Intake Total 1120 / 1120 0 / 1120 240 / 240 Balance 1120 / 1120 0 / 1120 240 / 240 Weight last 48 hrs Weight 43.273 kg Weight 43.273 kg Weight 43.001 kg Weight 43.001 kg Weight 41.787 kg Physical Exam 2 Narrative: Physical Exam Narrative: General: No acute distress, chachec tic, muscle wastin g, bitemporal wast ing HEENT: PERRLA, pupils bilaterall y equal and reacti ve, pallors not pr esent Chest: B/l b ronchial breath so unds with ronchi C VS: S1-S2 regular, no murmurs, no ta chycardia, no gall ops, no rubs Abdom en: Soft, nontende r, no organomegaly , Neuro: No focal deficits, no facia l deformity, power 5/5 in all limbs, not oriented, how ever talking more. Confused. Data 04/26/25 11:29 04/26/25 11:29 Micro: Microbiology 04/24/25 13:15 Urine Culture - Final Urine,Clean Catch 04/25/25 01:20 Blood Culture - Preliminary Blood NEGATIVE TO DATE 04/25/25 01:24 Blood Culture - Preliminary Blood NEGATIVE TO DATE A&P Assessment and plan 1. Dementia: 2. Altered mental status: 3. Atrial fibrillation: 4. Hypoxia: 5. Atrial fibrillation with rapid ventricular response: Plan: 84 year old male presenting after being found down at home. 1. Altered mental status: Unknown etiology. Stroke ruled out with a negative CT head. Infectious etiology ruled out with a negative UA, No concern for pneumonia. Patient saturating well on room air. - urine drug screen negative, alcohol level negative. - viral panel negative - blood culture NGTD. Most likely in setting of worsening dementia with dehydration/poor oral intake. Fall precaution, aspiration precaution. Sitter at bedside. NS at 50 cc/h. Monitor BMP daily Haldol 1 mg IM every 4 hours as needed. 2. Dementia: - unclear baseline. 3. Atrial fibrillation: Continue home dose of Cardizem. Telemetry. 4. COPD (chronic obstructive pulmonary disease): Not in exacerbation. Oxygen supplementation keeping saturation over 90. DuoNebs as needed. Diet: doing well on pureed diet currently. PPx: Famotidine for PUD PPx Heparin for DVT PPx Disposition Full code - more alert today. Will discuss with caregivers, however he remains disoriented, confused. - ongoing discussions concerning plan of care. - lost IV access, OK to leave out. - will need to contact family members for discharge planning. If unable to find family then he may need guardian appointed. PDMP PDMP Reviewed: Not Reviewed Attestations 2 Medical Necessity Statement*: Admitted to observation, found down. Likely needs higher level of care. Time Spent in Patient Care: 16 - 35 minutes (>than 50% of time sp ent in counselling and/or direct pt care on unit) . Coding Level of Care Code Acute Code for [facility] Fwd Diagnoses Dementia F03.90 Altered mental status R41.82 Atrial fibrillation I48.91 Hypoxia R09.02 Atrial fibrillation with rapid ventricular response I48.91
[2025-04-27] VITALS (9 sets, daily range): BP systolic 122–131; BP diastolic 46–68; PULSE 55–79; RESP 16–19; TEMP 36.6–36.8; O2SAT 93–98
[2025-04-27 08:26] LABS: Hematocrit 39.3 % (37-53); Hemoglobin 12.40 g/dL (11.27-16.99); Mean Corpuscular HGB Conc 31.6 g/dL (30-55); Mean Corpuscular Hemoglobin 30.9 pg (27-33); Mean Corpuscular Volume 98.0 fl (82-101); Nucleated Red Blood Cells % 0 %; Platelet Count 218 10^3/cmm (157-399); Red Blood Count 4.01 10^6/uL (3.85-5.65); White Blood Count 6.88 10^3/uL (3.29-11.43)
[2025-04-27 08:43] LABS: Alanine Aminotransferase 11 U/L (0-41); Albumin Level 3.1 g/dL (3.5-5.2); Alkaline Phosphatase 107 U/L (40-130); Anion Gap 13.0 (5-19); Aspartate Amino Transferase 16 U/L (0-40); Blood Urea Nitrogen 30 mg/dL (8-23); Calcium 8.5 mg/dL (8.5-10.5); Carbon Dioxide 24 mmol/L (22-29); Chloride 101 mmol/L (98-107); Creatinine Clr Calc Pharmacy 42.5076; Globulin 2.9 g/dL (1.3-4.6); Glucose 102 mg/dL (65-115); Magnesium 1.8 mg/dL (1.7-2.3); Osmolality Calculated 284 mOsm/kg (285-295); Potassium 4.0 mmol/L (3.5-5.1); Sodium 134 mmol/L (136-145); Total Protein 6.0 g/dL (6.6-8.7)
--- NOTE | 2025-04-27 12:54 | P.PN_ITS ---
Subjective 2 Subjective: Appears more alert, remains confused. Vitals/I&O/Wt Last Vital Signs Temp 97.9 F 04/27/25 08:00 Pulse 78 04/27/25 08:00 Resp 19 H 04/27/25 08:00 BP 131/62 04/27/25 08:00 Pulse Ox 93 04/27/25 08:00 O2 Del Method Nasal Cannula 04/27/25 04:00 04/26/25 04/27/25 04/27/25 22:59 06:59 14:59 Intake Total 480 / 960 0 / 960 360 / 360 Output Total 150 / 150 Balance 480 / 960 0 / 960 210 / 210 Weight last 48 hrs Weight 42.955 kg Weight 43.273 kg Weight 43.273 kg Physical Exam 2 Narrative: Physical Exam General: No acute distress, chachectic, muscle wasting, bitemporal wasting HEENT: PERRLA, pupils bilaterally equal and reactive, pallors not present Chest: B/l bronchial breath sounds with ronchi, S1-S2 regular, no murmurs, no tachycardia, no gallops, no rubs Abdomen: Soft, nontender, no organomegaly Neuro: No focal deficits, no facial deformity, power 5/5 in all limbs, not oriented, however talking more. Confused. Data 04/27/25 08:17 04/27/25 08:17 Micro: Microbiology 04/24/25 13:15 Urine Culture - Final Urine,Clean Catch A&P Assessment and plan 1. Dementia: 2. Altered mental status: 3. Protein calorie malnutrition: Plan: 84 year old male presenting after being found down at home. 1. Altered mental status: unclear baseline. May be chronic. Stroke ruled out with a negative CT head. Infectious etiology ruled out with a negative UA, No concern for pneumonia. Patient saturating well on room air. - urine drug screen negative, alcohol level negative. - viral panel negative - blood culture NGTD. Most likely in setting of worsening dementia with dehydration/poor oral intake. Fall precaution, aspiration precaution. Sitter at bedside. NS at 50 cc/h. Monitor BMP daily Haldol 1 mg IM every 4 hours as needed. Severe protein calorie malnutrition - BMI 12.2 - eating well on pureed diet. 2. Dementia: - unclear baseline. 3. Atrial fibrillation: Continue home dose of Cardizem. Telemetry. 4. COPD (chronic obstructive pulmonary disease): Not in exacerbation. Oxygen supplementation keeping saturation over 90. DuoNebs as needed. Diet: doing well on pureed diet currently. PPx: Famotidine for PUD PPx Heparin for DVT PPx Disposition Full code - more alert today. Will discuss with caregivers, however he remains disoriented, confused. - APS visiting today. - ongoing discussions concerning plan of care. - lost IV access, OK to leave out. - will need to contact family members for discharge planning. If unable to find family and there is no DPOA established then he may need guardian appointed. PDMP PDMP Reviewed: Not Reviewed Attestations 2 Medical Necessity Statement*: ongoing observation for AMS, malnutrition. Time Spent in Patient Care: 16 - 35 minutes (>than 50% of time sp ent in counselling and/or direct pt care on unit) . Coding Level of Care Code Acute Code for Chg Fwd Diagnoses Dementia F03.90 Altered mental status R41.82 Protein calorie malnutrition E46
[2025-04-28 03:32] VITALS: BP 140/69; PULSE 60; RESP 17; TEMP 36.6; O2SAT 96
[2025-04-28 07:46] VITALS: PULSE 73; RESP 18; O2SAT 96
[2025-04-28 07:55] VITALS: BP 144/65; PULSE 79; RESP 14; TEMP 37.1; O2SAT 97
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
--- NOTE | 2025-04-28 12:04 | P.PN_ITS ---
Subjective 2 Subjective: More alert today, answering questions. Vitals/I&O/Wt Last Vital Signs Temp 98.8 F 04/28/25 07:55 Pulse 79 04/28/25 07:55 Resp 14 04/28/25 07:55 BP 144/65 04/28/25 07:55 Pulse Ox 97 04/28/25 07:55 O2 Del Method Nasal Cannula 04/28/25 07:46 O2 Flow Rate 2 04/28/25 07:46 04/27/25 04/28/25 04/28/25 22:59 06:59 14:59 Intake Total 120 / 960 360 / 360 Output Total 100 / 250 200 / 450 Balance -100 / 590 -80 / 510 360 / 360 Weight last 48 hrs Weight 43.182 kg Weight 42.955 kg Physical Exam 2 Narrative: Physical Exam General: No acute distress, chachectic, muscle wasting, bitemporal wasting HEENT: PERRLA, pupils bilaterally equal and reactive, pallors not present Chest: B/l bronchial breath sounds with ronchi, S1-S2 regular, no murmurs, no tachycardia, no gallops, no rubs Abdomen: Soft, nontender, no organomegaly Neuro: No focal deficits, no facial deformity, power 5/5 in all limbs, more oriented, less confusion. Data 04/27/25 08:17 04/27/25 08:17 A&P Assessment and plan 1. Protein calorie malnutrition: 2. Dementia: 3. Altered mental status: 4. Atrial fibrillation: Plan: 84 year old male presenting after being found down at home. 1. Altered mental status: unclear baseline. May be chronic. Stroke ruled out with a negative CT head. Infectious etiology ruled out with a negative UA, No concern for pneumonia. Patient saturating well on room air. - urine drug screen negative, alcohol level negative. - viral panel negative - blood culture NGTD. Most likely in setting of worsening dementia with dehydration/poor oral intake. - would expect waxing and waning mentation with underlying dementia. Fall precaution, aspiration precaution. Sitter at bedside. - stop IV fluids Haldol 1 mg IM every 4 hours as needed. Severe protein calorie malnutrition severe neglect - BMI 12.2 - eating well on pureed diet. - so far no signs of refeeding syndrome. 2. Dementia: - unclear baseline. 3. Atrial fibrillation: Continue home dose of Cardizem. Telemetry. - resume eliquis 4. COPD (chronic obstructive pulmonary disease): Not in exacerbation. Oxygen supplementation keeping saturation over 90. DuoNebs as needed. Diet: doing well on pureed diet currently. PPx: restart home eliquis Disposition Full code - more alert today. - so far have been unable to contact caregivers - the patient is unable to give any phone numbers or other contact information for family members. He reports 3 daughters and various nephews, so far have been unable to contact. - APS visited 04/27 - ongoing discussions concerning plan of care. - will need to contact family members for discharge planning. If unable to find family and there is no DPOA established then he may need guardian appointed by the state. Forms filled out to this regard. PDMP PDMP Reviewed: Not Reviewed Attestations 2 Medical Necessity Statement*: Ongoing outpatient for protein calorie malnutrition. Coding Level of Care Code Acute Code for Chg Fwd Diagnoses Protein calorie malnutrition E46 Dementia F03.90 Altered mental status R41.82 Atrial fibrillation I48.91
[2025-04-28 15:44] VITALS: BP 156/67; PULSE 62; RESP 19; O2SAT 94
[2025-04-28] MEDS: mupirocin oint 22 gm 1 APPLIC TOPICAL (17:47)
[2025-04-28 19:14] VITALS: BP 154/72; PULSE 66; RESP 22; TEMP 36.9; O2SAT 95
[2025-04-28 23:19] VITALS: BP 139/92; PULSE 64; RESP 18; TEMP 37.1; O2SAT 97
[2025-04-29] VITALS (7 sets, daily range): BP systolic 131–150; BP diastolic 58–81; PULSE 58–86; RESP 16–24; TEMP 36.4–37.5; O2SAT 92–98; BMI 12.6
[2025-04-29] MEDS: mupirocin oint 22 gm 1 APPLIC TOPICAL ×2 (04:27→16:07)
[2025-04-29] MEDS: dilTIAZem ER (24HR) 300 mg Capsule PO (04:28)
[2025-04-29 10:17] LABS: Hematocrit 40.8 % (37-53); Hemoglobin 12.50 g/dL (11.27-16.99); Mean Corpuscular HGB Conc 30.6 g/dL (30-55); Mean Corpuscular Hemoglobin 30.9 pg (27-33); Mean Corpuscular Volume 101.0 fl (82-101); Nucleated Red Blood Cells % 0 %; Platelet Count 242 10^3/cmm (157-399); Red Blood Count 4.04 10^6/uL (3.85-5.65); White Blood Count 7.44 10^3/uL (3.29-11.43)
[2025-04-29 10:37] LABS: Anion Gap 14.0 (5-19); Blood Urea Nitrogen 26 mg/dL (8-23); Calcium 8.3 mg/dL (8.5-10.5); Carbon Dioxide 23 mmol/L (22-29); Chloride 102 mmol/L (98-107); Creatinine Clr Calc Pharmacy 44.2344; Glucose 93 mg/dL (65-115); Magnesium 1.9 mg/dL (1.7-2.3); Osmolality Calculated 284 mOsm/kg (285-295); Potassium 4.0 mmol/L (3.5-5.1); Sodium 135 mmol/L (136-145)
--- NOTE | 2025-04-29 12:03 | PC.NURSE ---
Review with Dr Garduno regarding need for 1:[address] order to stop 1:1 monitor. Bed alarm will be set.
--- NOTE | 2025-04-29 13:46 | PC.NURSE ---
Spoke with Dr Garduno and received orders to discontinue 1:1 sitter. patient has been calm and cooperative. Bed alarm is in use. No distress observed.
--- NOTE | 2025-04-29 14:08 | P.PN_ITS ---
Subjective 2 Subjective: No new issues. Vitals/I&O/Wt Last Vital Signs Temp 98.0 F 04/29/25 12:00 Pulse 84 04/29/25 12:00 Resp 16 04/29/25 12:00 BP 143/70 04/29/25 12:00 Pulse Ox 95 04/29/25 10:00 O2 Del Method Nasal Cannula 04/29/25 10:00 O2 Flow Rate 2 04/29/25 10:00 04/28/25 04/29/25 04/29/25 22:59 06:59 14:59 Intake Total 360 / 960 360 / 360 Output Total 80 / 80 Balance 280 / 880 360 / 360 Weight last 48 hrs Weight 44.7 kg Weight 43.182 kg Physical Exam 2 Narrative: Physical Exam General: No acute distress, chachectic, muscle wasting, bitemporal wasting HEENT: PERRLA, pupils bilaterally equal and reactive, pallors not present Chest: B/l bronchial breath sounds with ronchi, S1-S2 regular, no murmurs, no tachycardia, no gallops, no rubs Abdomen: Soft, nontender, no organomegaly Neuro: No focal deficits, no facial deformity, power 5/5 in all limbs, more oriented, less confusion. Data 04/29/25 09:58 04/29/25 09:58 A&P Assessment and plan 1. Protein calorie malnutrition: 2. Dementia: 3. Altered mental status: Plan: 84 year old male presenting after being found down at home. 1. Altered mental status: unclear baseline. May be chronic. Stroke ruled out with a negative CT head. Infectious etiology ruled out with a negative UA, No concern for pneumonia. Patient saturating well on room air. - urine drug screen negative, alcohol level negative. - viral panel negative - blood culture NGTD. Most likely in setting of worsening dementia with dehydration/poor oral intake. - would expect waxing and waning mentation with underlying dementia. Fall precaution, aspiration precaution. Sitter at bedside. - stop IV fluids Haldol 1 mg IM every 4 hours as needed. Severe protein calorie malnutrition severe neglect - BMI 12.2 - eating well on pureed diet. - so far no signs of refeeding syndrome. 2. Dementia: - unclear baseline. 3. Atrial fibrillation: Continue home dose of Cardizem. Telemetry. - resume eliquis 4. COPD (chronic obstructive pulmonary disease): Not in exacerbation. Oxygen supplementation keeping saturation over 90. DuoNebs as needed. Diet: doing well on pureed diet currently. PPx: restart home eliquis Disposition Full code - more alert today. - so far have been unable to contact caregivers - the patient is unable to give any phone numbers or other contact information for family members. He reports 3 daughters and various nephews, so far have been unable to contact. - APS visited 04/27 - ongoing discussions concerning plan of care. - will need to contact family members for discharge planning. If unable to find family and there is no DPOA established then he may need guardian appointed by the state. Forms filled out to this regard. - can recheck labs less frequently. PDMP PDMP Reviewed: Not Reviewed Attestations 2 Medical Necessity Statement*: ongoing observation for failure to thrive, severe protein calorie malnutrition, neglect Coding Level of Care Code Acute Code for Chg Fwd Diagnoses Protein calorie malnutrition E46 Dementia F03.90 Altered mental status R41.82
[2025-04-29 21:08] LABS: ABG PCO2 38.6 mmHg (35-45); ABG PH Result 7.46 (7.35-7.45); Alveolar-Arterial Oxygen Gradi 9.2 mmHg (5-10); Arterial Blood Gas Hematocrit 36.5 % (42-52); Blood Gas Allen Test Pos; Blood Gas LPM 2.0 %; Blood Gas Operator Identificat gerca; Blood Gas Sample Site Radial, right; Blood Gas Sample Type Arterial; Carboxyhemoglobin 1.0 %THgb (0.4-20.1); Glucose Level-ABG 98.0 mg/dL (70-115); HCO3 ABG 27.4 mmol/L (22-26); Ionized Calcium Level - ABG 1.2 mmol/L (1.1-1.4); Methemoglobin 0.3 % (0.4-1.5); Oxygen Saturation ABG 97.6; PO2 ABG 81.6 mmHg (80.0-100.0); PO2 FiO2 Ratio Arterial Blood 291; Potassium Level - ABG 3.9 mmol/L (3.5-5.0); Sodium Level - ABG 137.0 mmol/L (131-143)
[2025-04-30] VITALS (8 sets, daily range): BP systolic 117–138; BP diastolic 55–71; PULSE 50–77; RESP 14–24; TEMP 36.5–37.3; O2SAT 94–100; BMI 12.9
[2025-04-30 00:36] LABS: Platelet Count 241 10^3/cmm (157-399)
[2025-04-30 01:18] LABS: Alanine Aminotransferase 11 U/L (0-41); Albumin Level 3.0 g/dL (3.5-5.2); Alkaline Phosphatase 110 U/L (40-130); Anion Gap 15.2 (5-19); Aspartate Amino Transferase 13 U/L (0-40); Blood Urea Nitrogen 26 mg/dL (8-23); Calcium 8.3 mg/dL (8.5-10.5); Carbon Dioxide 25 mmol/L (22-29); Chloride 102 mmol/L (98-107); Globulin 2.6 g/dL (1.3-4.6); Glucose 101 mg/dL (65-115); Osmolality Calculated 291 mOsm/kg (285-295); Potassium 4.2 mmol/L (3.5-5.1); Sodium 138 mmol/L (136-145); Total Protein 5.6 g/dL (6.6-8.7)
[2025-04-30 01:19] LABS: Creatinine Clr Calc Pharmacy 44.2344
[2025-04-30] MEDS: polyethylene glycol 3350 Pkt 17 gm PO (04:55)
[2025-04-30] MEDS: heparin drip 25,000 UNIT/500 ML PREMIX 13 UNIT IV (04:57)
[2025-04-30] MEDS: mupirocin oint 22 gm 1 APPLIC TOPICAL ×2 (04:58→16:36)
[2025-04-30] MEDS: dilTIAZem ER (24HR) 300 mg Capsule PO (04:58)
--- NOTE | 2025-04-30 07:09 | PC.NURSE ---
At 1945 PRESENTATION SPECIALIST notified nurse that patient's fingers are purple. During assessment of patient patient has cyanosis of fingers up to first knuckle and slight mottling on the knees. Dr. Locke notified, discussed vital signs and received orders for stat ABG. After MD looked up patient she came to she the patient and ordered heparin and US arterial of the upper extremeities. claims supervisor notified and was told to get a rectal temp.
--- NOTE | 2025-04-30 15:41 | P.PN_ITS ---
Subjective 2 Subjective: No new issues. More alert today. Vitals/I&O/Wt Last Vital Signs Temp 98.8 F 04/30/25 07:47 Pulse 67 04/30/25 12:00 Resp 17 04/30/25 12:00 BP 123/62 04/30/25 12:00 Pulse Ox 96 04/30/25 12:00 O2 Del Method Nasal Cannula 04/30/25 10:00 O2 Flow Rate 2 04/30/25 10:00 04/30/25 04/30/25 04/30/25 06:59 14:59 22:59 Output Total 280 / 280 Balance -280 / -280 Weight last 48 hrs Weight 45.8 kg Weight 44.7 kg Physical Exam 2 Narrative: Physical Exam General: No acute distress, chachectic, muscle wasting, bitemporal wasting HEENT: PERRLA, pupils bilaterally equal and reactive, pallors not present Chest: B/l bronchial breath sounds with ronchi, S1-S2 regular, no murmurs, no tachycardia, no gallops, no rubs Abdomen: Soft, nontender, no organomegaly Neuro: No focal deficits, no facial deformity, power 5/5 in all limbs, more oriented, less confusion. Data 04/29/25 09:58 04/29/25 09:58 Micro: Microbiology 04/25/25 01:20 Blood Culture - Final Blood NO GROWTH AFTER 5 DAYS 04/25/25 01:24 Blood Culture - Final Blood NO GROWTH AFTER 5 DAYS A&P Assessment and plan 1. Protein calorie malnutrition: 2. Dementia: 3. Altered mental status: 4. Atrial fibrillation: Plan: 84 year old male presenting after being found down at home. 1. Altered mental status: unclear baseline. May be chronic. Stroke ruled out with a negative CT head. Infectious etiology ruled out with a negative UA, No concern for pneumonia. Patient saturating well on room air. - urine drug screen negative, alcohol level negative. - viral panel negative - blood culture NGTD. Most likely in setting of worsening dementia with dehydration/poor oral intake. - would expect waxing and waning mentation with underlying dementia. Fall precaution, aspiration precaution. Haldol 1 mg IM every 4 hours as needed. - mentation appears to be improving. Severe protein calorie malnutrition severe neglect - BMI 12.2 - eating well on pureed diet. - so far no signs of refeeding syndrome. 2. Dementia: - unclear baseline. 3. Atrial fibrillation: Continue home dose of Cardizem. Telemetry. - resume eliquis 4. COPD (chronic obstructive pulmonary disease): Not in exacerbation. Oxygen supplementation keeping saturation over 90. DuoNebs as needed. Diet: doing well on pureed diet currently. PPx: restart home eliquis Disposition Full code - more alert today. - so far have been unable to contact caregivers - the patient is unable to give any phone numbers or other contact information for family members. He reports 3 daughters and various nephews, so far have been unable to contact. - APS visited 04/27 - ongoing discussions concerning plan of care. - will need to contact family members for discharge planning. If unable to find family and there is no DPOA established then he may need guardian appointed by the state. Forms filled out to this regard. - can recheck labs less frequently. PDMP PDMP Reviewed: Not Reviewed Attestations 2 Medical Necessity Statement*: ongoing observation for failure to thrive. Time Spent in Patient Care: 16 - 35 minutes (>than 50% of time sp ent in counselling and/or direct pt care on unit) . Coding Level of Care Code Acute Code for Chg Fwd Diagnoses Protein calorie malnutrition E46 Dementia F03.90 Altered mental status R41.82 Atrial fibrillation I48.91
[2025-05-01 04:00] VITALS: BP 115/56; PULSE 69; RESP 18; TEMP 36.7; O2SAT 93
[2025-05-01] MEDS: dilTIAZem ER (24HR) 300 mg Capsule PO (04:54)
[2025-05-01] MEDS: polyethylene glycol 3350 Pkt 17 gm PO (04:54)
[2025-05-01] MEDS: mupirocin oint 22 gm 1 APPLIC TOPICAL ×2 (04:57→16:14)
[2025-05-01 05:08] VITALS: BMI 13.2
[2025-05-01 07:20] VITALS: BP 112/62; PULSE 65; RESP 13; TEMP 36.9; O2SAT 97
[2025-05-01 08:13] VITALS: PULSE 65; RESP 18; O2SAT 97
--- NOTE | 2025-05-01 11:36 | P.PN_ITS ---
Subjective 2 Subjective: No new issues. Vitals/I&O/Wt Last Vital Signs Temp 98.4 F 05/01/25 07:20 Pulse 65 05/01/25 08:13 Resp 18 05/01/25 08:13 BP 112/62 05/01/25 07:20 Pulse Ox 97 05/01/25 08:13 O2 Del Method Room Air 05/01/25 08:13 O2 Flow Rate 2 04/30/25 19:25 04/30/25 05/01/25 05/01/25 22:59 06:59 14:59 Intake Total 360 / 360 Output Total 250 / 530 Balance -250 / -530 360 / 360 Weight last 48 hrs Weight 46.8 kg Weight 45.8 kg Physical Exam 2 Narrative: Physical Exam General: No acute distress, chachectic, muscle wasting, bitemporal wasting HEENT: PERRLA, pupils bilaterally equal and reactive, pallors not present Chest: B/l bronchial breath sounds with ronchi, S1-S2 regular, no murmurs, no tachycardia, no gallops, no rubs Abdomen: Soft, nontender, no organomegaly Neuro: No focal deficits, no facial deformity, power 5/5 in all limbs, more oriented, less confusion. Data 04/29/25 09:58 04/29/25 09:58 A&P Assessment and plan 1. Protein calorie malnutrition: 2. Dementia: 3. Altered mental status: Plan: 84 year old male presenting after being found down at home. 1. Altered mental status: unclear baseline. May be chronic. Stroke ruled out with a negative CT head. Infectious etiology ruled out with a negative UA, No concern for pneumonia. Patient saturating well on room air. - urine drug screen negative, alcohol level negative. - viral panel negative - blood culture NGTD. Most likely in setting of worsening dementia with dehydration/poor oral intake. - would expect waxing and waning mentation with underlying dementia. Fall precaution, aspiration precaution. Haldol 1 mg IM every 4 hours as needed. - mentation appears to be at baseline. Severe protein calorie malnutrition severe neglect - BMI 12.2 - eating well on pureed diet. - so far no signs of refeeding syndrome. 2. Dementia: - unclear baseline. 3. Atrial fibrillation: Continue home dose of Cardizem. Telemetry. - resume eliquis 4. COPD (chronic obstructive pulmonary disease): Not in exacerbation. Oxygen supplementation keeping saturation over 90. DuoNebs as needed. Diet: doing well on pureed diet currently. PPx: restart home eliquis Disposition Full code - more alert today. - so far have been unable to contact caregivers or family - the patient is unable to give any phone numbers or other contact information for family members. He reports 3 daughters and various nephews, so far have been unable to contact. - APS visited 04/27 - ongoing discussions concerning plan of care. - will need to contact family members for discharge planning. If unable to find family and there is no DPOA established then he may need guardian appointed by the state. Forms filled out to this regard. - can recheck labs less frequently. - D/C tele PDMP PDMP Reviewed: Not Reviewed Attestations 2 Medical Necessity Statement*: ongoing observation for malnutrition, neglect. Coding Level of Care Code Acute Code for Chg Fwd Diagnoses Protein calorie malnutrition E46 Dementia F03.90 Altered mental status R41.82
[2025-05-01 12:00] VITALS: BP 102/53; PULSE 70; RESP 23; TEMP 36.8; O2SAT 95
[2025-05-01 19:44] VITALS: BP 119/64; PULSE 78; RESP 26; TEMP 36.8
[2025-05-02] VITALS (8 sets, daily range): BP systolic 126–146; BP diastolic 60–85; PULSE 51–84; RESP 16–22; TEMP 36.4–37.1; O2SAT 93–99
[2025-05-02 04:12] LABS: Hematocrit 36.7 % (37-53); Hemoglobin 12.10 g/dL (11.27-16.99); Mean Corpuscular HGB Conc 33.0 g/dL (30-55); Mean Corpuscular Hemoglobin 31.5 pg (27-33); Mean Corpuscular Volume 95.6 fl (82-101); Nucleated Red Blood Cells % 0 %; Platelet Count 292 10^3/cmm (157-399); Red Blood Count 3.84 10^6/uL (3.85-5.65); White Blood Count 5.69 10^3/uL (3.29-11.43)
[2025-05-02] MEDS: dilTIAZem ER (24HR) 300 mg Capsule PO (04:27)
[2025-05-02] MEDS: mupirocin oint 22 gm 1 APPLIC TOPICAL (04:27)
[2025-05-02] MEDS: polyethylene glycol 3350 Pkt 17 gm PO (04:27)
[2025-05-02 04:35] LABS: Anion Gap 13.2 (5-19); Blood Urea Nitrogen 22 mg/dL (8-23); Calcium 8.2 mg/dL (8.5-10.5); Carbon Dioxide 27 mmol/L (22-29); Chloride 99 mmol/L (98-107); Glucose 120 mg/dL (65-115); Osmolality Calculated 285 mOsm/kg (285-295); Potassium 4.2 mmol/L (3.5-5.1); Sodium 135 mmol/L (136-145)
[2025-05-02 04:38] LABS: Creatinine Clr Calc Pharmacy 46.3125
--- NOTE | 2025-05-02 09:21 | PC.CHAP ---
Pastoral Care Encounter/Spiritual Assessment Type of Contact [] Declined stations superintendent visit [] Patient/Family/Request visit [] Outpatient visit [] Follow-up visit [] Physician referral [] Code/Alert [x] Routine visit [] Staff referral [] Actively dying [] Patient sleeping [] Family support [] [] Out of room [] Palliative care [] [] Receiving care in room [] Pre-surgical visit [] Trauma [] Long length of stay [] ICU visit [] Other: Relational/Emotional Strength [] Patient feels connected with others/family/visitors/staff [] Distress [] Loneliness/isolation [] Abandonment Spirituality of Patient [x] Person of Isatu [] Attends Anglican of their Isatu [x] Believes in Prayer [] Reads Bible or Sabianist materials [] There are Spiritual issues to be addressed Shell Shop Supervisor Interventions [x] Prayer [x] Active listening [] Non-anxious presence [] Spiritual/emotional support [] Crisis/trauma care [] Spiritual counseling [] Bereavement support [] Provided bereavement packet [x] Provided Bible/devotional materials [] Provided toy/stuffed animal, coloring book to patient or family member [] Provided Communion [] Anointing/[place] [] Salvation [x] Completed spiritual assessment [] Other: Impact on Illness or Injury [] Angry [] Fearful [] Anxious [] Often cries [] Exhaustion [] Unable to work [] Unable to attend jewish [] Unable to walk/stand [] Unable to read [] Unable to drive [] Unable to eat/drink [] Unable to sleep [] Unable to be with family [] Patient intubated [] Other: Summary Time spent with patient 10 min
--- NOTE | 2025-05-02 11:53 | CTR_ITS ---
PROCEDURE INFORMATION: Exam: CT Chest Without Contrast; Diagnostic Exam date and time: 05/02/2025 11:44 PM Age: 84 years old Clinical indication: Other: Weight loss TECHNIQUE: Imaging protocol: Diagnostic computed tomography of the chest without contrast. Radiation optimization: All CT scans at this facility use at least one of these dose optimization techniques: automated exposure control; mA and/or kV adjustment per patient size (includes targeted exams where dose is matched to clinical indication); or iterative reconstruction. COMPARISON: CT angio chest PE protcl [id number] 04/08/2022 12:49 PM RADIATION DOSE METRICS: Total DLP (mGy-cm): 561.17 FINDINGS: Thyroid: Atrophic homogeneous thyroid. Lungs: Advanced centrilobular emphysema. There is diffuse bronchial wall thickening with bronchial luminal narrowing which is most severe at the posterior lung bases. Multifocal bronchial occlusion is noted. There is patchy airspace disease at each posterior lung base. Pleural spaces: Trace non loculated bilateral pleural effusions are water density. No pneumothorax on either side. Heart: Heart size is normal. Multifocal pericardial calcification noted without effusion. Coronary arteries: Extensive coronary artery hyperdensity could be calcification and/or stent material. Lymph nodes: No mediastinal, axillary, or supraclavicular adenopathy. Vasculature: Normal caliber thoracic aorta with moderate calcific plaque. Normal caliber pulmonary artery tree. Diaphragm: Moderate sliding hiatal hernia. Bones/joints: Severe subjective bony demineralization. Soft tissues: Cachexia. PROCEDURE INFORMATION: Exam: CT Abdomen And Pelvis Without Contrast Exam date and time: 05/02/2025 11:44 PM Age: 84 years old Clinical indication: Other: Weight loss TECHNIQUE: Imaging protocol: Computed tomography of the abdomen and pelvis without contrast. Radiation optimization: All CT scans at this facility use at least one of these dose optimization techniques: automated exposure control; mA and/or kV adjustment per patient size (includes targeted exams where dose is matched to clinical indication); or iterative reconstruction. COMPARISON: CR XR hip LT 2-3V wo/w pel* [id number] 07/23/2022 9:20 AM RADIATION DOSE METRICS: Total DLP (mGy-cm): 561.17 FINDINGS: Liver: Mildly hyperdense liver. No focal mass. Gallbladder and biliary ducts: Prior cholecystectomy. No biliary tree dilation. Pancreas: No edema or visible mass. Spleen: Scattered splenic calcified granulomata. Spleen is normal in size. Adrenal glands: Normal configuration. Kidneys and ureters: Kidneys are symmetric without evidence of obstruction or significant contour deformity. Stomach and bowel: Stomach is distended with ingested material. Normal caliber small bowel. Moderate gas and fecal debris noted throughout the colon. There is diverticulosis in the distal colon without evidence of acute diverticulitis. Appendix: Appendix is not seen with confidence. Intraperitoneal space: No free air. No significant fluid collection. Vasculature: Moderate diffuse arterial atherosclerotic changes noted without aneurysm. Lymph nodes: No enlarged lymph nodes. Urinary bladder: Unremarkable as visualized. Reproductive: Physiologic appearance for age. Bones/joints: Mild spinal degenerative change. Adequate spinal canal. Mild sacroiliac osteoarthritis. Mild right hip osteoarthritis. Prior left femoral ORIF. Severe subjective bony demineralization. Soft tissues: No perineal/perianal abscess or inflammation. No visible skin breakdown. CT/[place] [id number] IMPRESSION: 1. Advanced centrilobular emphysema with features of acute on chronic bronchitis. There is patchy airspace disease at each lung base. Small bilateral pleural effusions without evidence of loculation. No pulmonary mass lesion. 2. Moderate sliding hiatal hernia. Distal esophageal or GE junction mass cannot be excluded. 3. Subjective bony demineralization could be quantified with DEXA. IMPRESSION: 1. Patient is cachectic. On this noncontrast exam, there is no visible abnormality to explain weight loss. In particular, there is limited CT sensitivity for bowel lesions. No findings of metastatic disease. 2. Subjective bony demineralization could be quantified with DEXA. 3. Hyperdense liver. Differential diagnosis includes hemochromatosis as well as medication effect from amiodarone or gold.
--- NOTE | 2025-05-02 14:50 | PM.PN ---
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 [place], he has since been retired, he is not doing much in his correction he lives with his [id number] and nephew, he does report alcoholism, but is not able to give me specific details of how much alcohol he consumes, denies smoking, denies any falls Vitals/I&O/Wt Last Vital Signs Temp 98.7 F 05/02/25 11:52 Pulse 74 05/02/25 11:52 Resp 18 05/02/25 11:52 BP 136/85 05/02/25 11:52 Pulse Ox 95 05/02/25 11:52 O2 Del Method Room Air 05/02/25 11:52 O2 Flow Rate 2 04/30/25 19:25 05/01/25 05/02/25 05/02/25 22:59 06:59 14:59 Intake Total 360 / 1200 240 / 240 Output Total 100 / 100 100 / 200 Balance 260 / 1100 -100 / 1000 240 / 240 Weight last 48 hrs Weight 46.2 kg Weight 46.2 kg Weight 46.8 kg Physical Exam Const: COMMON NORMALS: no acute distress ORIENTATION/CONSCIOUSNESS: Yes awake, Yes oriented to person and Yes oriented to place; not oriented to time Neck/C-Spine: COMMON NORMALS: no JVD Resp: COMMON NORMALS: normal respiratory effort, No retractions, No use of accessory muscles and clear to auscultation bilaterally AUSCULTATION: clear to auscultation bilaterally Cardio: COMMON NORMALS: no JVD, regular rate, regular rhythm, S1 normal heart sound present and S2 normal heart sound present RATE: regular rate RHYTHM: regular rhythm HEART SOUNDS: S1 normal heart sound present and S2 normal heart sound present GI: COMMON NORMALS: Normal to inspection, nondistended, normoactive bowel sounds present and non-tender Extremity: COMMON NORMALS: no calf tenderness and no pedal edema Neuro: SENSORIUM/ORIENTATION: Yes oriented to person, Yes oriented to place and No oriented to time Psych: COMMON NORMALS: mental status grossly normal Data 05/02/25 03:38 05/02/25 03:38 A&P Assessment and plan 1. Protein calorie malnutrition: 2. Dementia: 3. Altered mental status: Plan: 84 year old male presenting after being found down at home. 1. Altered mental status: - Currently alert oriented x 2, following all commands, - Will monitor mentation closely Severe protein calorie malnutrition -Protein shakes twice daily -Consult dietary - Speech therapy consulted, dysphagia diet severe neglect - BMI 12.2 - eating well on pureed diet. 2. Dementia: - unclear baseline. 3. Atrial fibrillation: Continue home dose of Cardizem. Telemetry. - resume eliquis 4. COPD (chronic obstructive pulmonary disease): Not in exacerbation. Oxygen supplementation keeping saturation over 90. DuoNebs as needed. Diet: doing well on pureed diet currently. eliquis Disposition Full code Plan for today, monitor clinical status closely, start IV thiamine, folic acid PDMP PDMP Reviewed: Not Reviewed Attestations Medical Necessity Statement*: Patient requires hospitalization for severe neglect, protein, malnutrition, physical deconditioning Diagnoses Protein calorie malnutrition E46 Dementia F03.90 Altered mental status R41.82
--- NOTE | 2025-05-02 15:05 | PC.NURSE ---
Informed Dr Oleary that patient does not have IV access and does not want one in regards to thiamine IVP. Received instruction to change order to Thiamin 200mg IM
[2025-05-02] MEDS: thiamine 100 mg/mL 2mL SDV 200 MG IM (17:23)
[2025-05-03] VITALS (8 sets, daily range): BP systolic 111–151; BP diastolic 60–79; PULSE 66–84; RESP 12–18; TEMP 36.6–37.3; O2SAT 93–96
[2025-05-03] MEDS: polyethylene glycol 3350 Pkt 17 gm PO (04:32)
[2025-05-03] MEDS: thiamine 100 mg/mL 2mL SDV 200 MG IM ×2 (04:33→16:10)
[2025-05-03] MEDS: dilTIAZem ER (24HR) 300 mg Capsule PO (04:33)
[2025-05-03] MEDS: multivitamin therapeutic Tablet 1 TAB PO (04:33)
[2025-05-03] MEDS: mupirocin oint 22 gm 1 APPLIC TOPICAL (04:37)
--- NOTE | 2025-05-03 09:13 | PC.CHAP ---
Pastoral Care Encounter/Spiritual Assessment Type of Contact [] Declined blacksmith apprentice visit [] Patient/Family/Request visit [] Outpatient visit [] Follow-up visit [] Physician referral [] Code/Alert [] Routine visit [] Staff referral [] Actively dying [x] Patient sleeping [] Family support [] [] Out of room [] Palliative care [] [] Receiving care in room [] Pre-surgical visit [] Trauma [] Long length of stay [] ICU visit [x] Other:Contact precautions. Relational/Emotional Strength [] Patient feels connected with others/family/visitors/staff [] Distress [] Loneliness/isolation [] Abandonment Spirituality of Patient [] Person of Isatu [] Attends Synagogue of their Isatu [] Believes in Prayer [] Reads Bible or Hoahaoism materials [] There are Spiritual issues to be addressed Package [employer]arns Drying Machine Operator Interventions [] Prayer [] Active listening [] Non-anxious presence [] Spiritual/emotional support [] Crisis/trauma care [] Spiritual counseling [] Bereavement support [] Provided bereavement packet [] Provided Bible/devotional materials [] Provided toy/stuffed animal, coloring book to patient or family member [] Provided Communion [] Anointing/[place] [] Salvation [] Completed spiritual assessment [] Other: Impact on Illness or Injury [] Angry [] Fearful [] Anxious [] Often cries [] Exhaustion [] Unable to work [] Unable to attend latter day [] Unable to walk/stand [] Unable to read [] Unable to drive [] Unable to eat/drink [] Unable to sleep [] Unable to be with family [] Patient intubated [] Other: Summary Time spent with patient
--- NOTE | 2025-05-03 15:15 | P.PN_ITS ---
Subjective 2 Subjective: Patient was examined this morning, - He is alert to person, to place, not t o time - He follows commands - We had a detailed discussion with Johann bynum this morning, he - He tells me that what brought initiall y to the hospital was his fall he cannot really remember the event well, but the next thing he remembers the ambulance was picking him up from his home - He tells me his address, he lives with his nephew, and ex [id number] - He tells me that they help take care o f him, - He does not drive, he does not cook th ey help with those activities - Thaddeus adamantly denies any physical ab use or neglect - He adamantly denies any financial abus e or sexual abuse -Denies feeling down depressed or sad, n o suicidal ideation, no homicidal ideation - He feels that he is well taking care o f - When confronted about his weight loss and his declining weight, he tells me that he is always been thin he is just not had an appetite to eat - Does report a history of alcohol consu mption thus we started thiamine yesterday, he is a former smoker - Discussed plans on appetite stimulatio n, physical therapy today - Patient is able to ambulate, but feels unsteady on his feet, denies falling here in the hospital - He wants to go home, he declines going to the custodial facility - I had a family meeting with Thaddeus his nephew and ex [id number] - Who lives with Thaddeus - They tell me that Thaddeus was diagnosed with macular degeneration a few months ago, since then Thaddeus has been depressed, his appetite declined, he was less interested in things that he loves to do - The family also tell me that they did not pay attention to his dentition, - Thaddeus's family feels that they can varsha e care of at home, they feel that he can appropriately take care of him - They want to see if he qualifies for h ome oxygen given his history of COPD they feel that with oxygen he feels a lot better and he is a lot of clearer - His ex [id number] tells me that whe n he was hospitalized for his hip fracture he was on oxygen dependent he did quite well - Vitals/I&O/Wt Last Vital Signs Temp 97.9 F 05/03/25 08:00 Pulse 78 05/03/25 12:00 Resp 15 05/03/25 12:00 BP 111/60 05/03/25 12:00 Pulse Ox 96 05/03/25 15:13 O2 Del Method Room Air 05/03/25 10:00 O2 Flow Rate 2 04/30/25 19:25 05/03/25 05/03/25 05/03/25 06:59 14:59 22:59 Output Total 400 / 400 Balance -400 / -400 Weight last 48 hrs Weight 46.493 kg Weight 46.2 kg Weight 46.2 kg Physical Exam 2 Const: COMMON NORMALS: no acute distress ORIENTATION/CONSCIOUSNESS: Yes awake, Yes oriented to person and Yes oriented to place Resp: COMMON NORMALS: normal respiratory effort, No retractions, No use of accessory muscles and clear to auscultation bilaterally AUSCULTATION: clear to auscultation bilaterally Cardio: COMMON NORMALS: regular rate, regular rhythm, S1 normal heart sound present and S2 normal heart sound present RATE: regular rate RHYTHM: r egular rhythm HEART SOUNDS: S1 normal heart sound present and S2 normal heart sound present GI: COMMON NORMALS: Normal to inspection, nondistended, normoactive bowel sounds present and non-tender Extremity: COMMON NORMALS: no pedal edema Neuro: SENSORIUM/ORIENTATION: Yes oriented to person and Yes oriented to place Psych: COMMON NORMALS: mental status grossly normal Data 05/02/25 03:38 05/02/25 03:38 A&P Assessment and plan 1. Protein calorie malnutrition: 2. Dementia: 3. Altered mental status: Plan: 84 year old male presenting after being found down at home. 1. Altered mental status: Resolving - Currently alert oriented x 2, following all commands, - Will monitor mentation closely Severe protein calorie malnutrition -Protein shakes twice daily -Consult dietary - Speech therapy consulted, dysphagia diet severe neglect - BMI 12.2 - eating well on pureed diet. 2. Dementia: - unclear baseline. 3. Atrial fibrillation: Continue home dose of Cardizem. Telemetry. - resume eliquis 2.5 twice daily 4. COPD (chronic obstructive pulmonary disease): Not in exacerbation. Oxygen supplementation keeping saturation over 90. DuoNebs as needed. Diet: doing well on pureed diet currently. eliquis for DVT prophylaxis Disposition Full code Plan for today, PT OT, IM thiamine, folic acid, resume Eliquis, start methylphenidate PDMP PDMP Reviewed: Not Reviewed Attestations 2 Medical Necessity Statement*: Patient requires hospitalization for altered mental status, malnutrition Diagnoses Protein calorie malnutrition E46 Dementia F03.90 Altered mental status R41.82
[2025-05-03] MEDS: APIXABAN 2.5 MG TABLET PO (21:56)
[2025-05-04 03:37] VITALS: BP 160/92; PULSE 77; RESP 16; TEMP 36.7; O2SAT 99
[2025-05-04] MEDS: dilTIAZem ER (24HR) 300 mg Capsule PO (04:55)
[2025-05-04] MEDS: multivitamin therapeutic Tablet 1 TAB PO (04:55)
[2025-05-04] MEDS: thiamine 100 mg/mL 2mL SDV 200 MG IM ×2 (04:55→17:46)
[2025-05-04] MEDS: mupirocin oint 22 gm 1 APPLIC TOPICAL ×2 (05:00→17:49)
[2025-05-04 06:00] VITALS: BMI 13.7
--- NOTE | 2025-05-04 09:54 | PC.CHAP ---
Pastoral Care Encounter/Spiritual Assessment Type of Contact [] Declined general internal medicine doctor visit [] Patient/Family/Request visit [] Outpatient visit [] Follow-up visit [] Physician referral [] Code/Alert [X] Routine visit [] Staff referral [] Actively dying [] Patient sleeping [X] Family support [] [] Out of room [] Palliative care [] [] Receiving care in room [] Pre-surgical visit [] Trauma [] Long length of stay [] ICU visit [] Other: Relational/Emotional Strength [X] Patient feels connected with others/family/visitors/staff [X] Distress [X] Loneliness/isolation [] Abandonment Spirituality of Patient [] Person of Isatu [] Attends Christianity of their Isatu [X] Believes in Prayer [] Reads Bible or Orthodoxy materials [] There are Spiritual issues to be addressed Child Care Sitter Interventions [X] Prayer [X] Active listening [X] Non-anxious presence [X] Spiritual/emotional support [] Crisis/trauma care [] Spiritual counseling [] Bereavement support [] Provided bereavement packet [] Provided Bible/devotional materials [] Provided toy/stuffed animal, coloring book to patient or family member [] Provided Communion [] Anointing/[place] [] Salvation [X] Completed spiritual assessment [] Other: Impact on Illness or Injury [] Angry [] Fearful [] Anxious [] Often cries [] Exhaustion [] Unable to work [] Unable to attend quaker [] Unable to walk/stand [] Unable to read [] Unable to drive [] Unable to eat/drink [] Unable to sleep [] Unable to be with family [] Patient intubated [] Other: Summary Time spent with patient 10 MIN
[2025-05-04] MEDS: APIXABAN 2.5 MG TABLET PO ×2 (10:22→21:07)
[2025-05-04 12:00] VITALS: BP 116/59; PULSE 79; RESP 12; TEMP 36.9; O2SAT 94
[2025-05-04 12:35] LABS: Glucose Urine UA Negative (Normal); Nitrate Urine Negative (Negative); Specific Gravity, Urine 1.012 (1.005-1.030)
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
--- NOTE | 2025-05-04 12:39 | XRR_ITS ---
PROCEDURE INFORMATION: Exam: XR Chest Exam date and time: 05/04/2025 1:11 PM Age: 84 years old Clinical indication: Other: AMS TECHNIQUE: Imaging protocol: Radiologic exam of the chest. Views: 1 view. COMPARISON: CT chest abdpel [id number] 05/02/2025 11:44 PM FINDINGS: Lungs: Unremarkable. No consolidation. Pleural spaces: Unremarkable. No pleural effusion. No pneumothorax. Heart/Mediastinum: Unremarkable. No cardiomegaly. Bones/joints: Unremarkable. XR/XR chest 1V portable [id number] IMPRESSION: No acute findings.
[2025-05-04 12:40] LABS: Add Urine Microscopic? YES
[2025-05-04 13:33] LABS: Ammonia 20 umol/L (16-60)
[2025-05-04 16:00] VITALS: BP 125/64; PULSE 69; RESP 19; TEMP 36.4; O2SAT 94
[2025-05-04 16:06] LABS: Procalcitonin 0.07 ng/mL (0-0.5)
[2025-05-04 20:00] VITALS: BP 111/59; PULSE 65; RESP 17; TEMP 36.8; O2SAT 93
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
[2025-05-05] VITALS (8 sets, daily range): BP systolic 120–131; BP diastolic 61–83; PULSE 50–80; RESP 12–23; TEMP 36.6–37.1; O2SAT 93–96
[2025-05-05] MEDS: dilTIAZem ER (24HR) 300 mg Capsule PO (04:44)
[2025-05-05] MEDS: multivitamin therapeutic Tablet 1 TAB PO (04:44)
[2025-05-05] MEDS: mupirocin oint 22 gm 1 APPLIC TOPICAL ×2 (04:46→17:33)
--- NOTE | 2025-05-05 08:26 | PC.NURSE ---
Physician ordered 2.5mg tablet of ritalin. Tab only comes in 10mg. Pharmacy called and advised not to administer that dose. Physician called and changed order to 5mg of ritalin.
[2025-05-05] MEDS: APIXABAN 2.5 MG TABLET PO ×2 (08:58→21:40)
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
--- NOTE | 2025-05-05 16:00 | PC.OT ---
OT TREATMENT HELD P.T. STATES THAT FAMILY IN ROOM REQUESTING TO LET PATIENT REST AT THIS TIME.
[2025-05-05] MEDS: thiamine 100 mg/mL 2mL SDV 200 MG IM (17:32)
[2025-05-06] VITALS (8 sets, daily range): BP systolic 116–147; BP diastolic 63–99; PULSE 57–78; RESP 14–17; TEMP 36.7–36.9; O2SAT 90–97; BMI 12.3
[2025-05-06] MEDS: mupirocin oint 22 gm 1 APPLIC TOPICAL (04:58)
[2025-05-06] MEDS: multivitamin therapeutic Tablet 1 TAB PO (04:58)
[2025-05-06] MEDS: APIXABAN 2.5 MG TABLET PO ×2 (08:50→20:53)
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
[2025-05-07] VITALS (10 sets, daily range): BP systolic 111–136; BP diastolic 55–74; PULSE 64–78; RESP 16–20; TEMP 36.7–37.2; O2SAT 85–98
[2025-05-07] MEDS: mupirocin oint 22 gm 1 APPLIC TOPICAL (05:12)
[2025-05-07] MEDS: multivitamin therapeutic Tablet 1 TAB PO (05:13)
[2025-05-07] MEDS: dilTIAZem ER (24HR) 300 mg Capsule PO (05:13)
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
--- NOTE | 2025-05-07 14:11 | PC.PT ---
1332: Attempted to see pt and psych was in the room for an evaluation. Will reattempt at a later time when pt is available.
--- NOTE | 2025-05-07 15:24 | P.PN_ITS ---
Subjective 2 Subjective: Patient was alert oriented x 1, follows commands, has no complaints, he is eating breakfast this morning, family numbers at bedside Vitals/I&O/Wt Last Vital Signs Temp 98.4 F 05/07/25 12:00 Pulse 64 05/07/25 12:00 Resp 18 05/07/25 12:00 BP 115/55 05/07/25 12:00 Pulse Ox 85 L 05/07/25 12:00 O2 Del Method Room Air 05/07/25 12:00 O2 Flow Rate 2 04/30/25 19:25 05/07/25 05/07/25 05/07/25 06:59 14:59 22:59 Intake Total 400 / 700 Output Total 350 / 350 Balance 50 / 350 Weight last 48 hrs Weight 45.8 kg Weight 43.5 kg Physical Exam 2 Const: COMMON NORMALS: no acute distress ORIENTATION/CONSCIOUSNESS: Yes awake, Yes oriented to person and Yes oriented to place Resp: COMMON NORMALS: normal respiratory effort, No retractions, No use of accessory muscles and clear to auscultation bilaterally AUSCULTATION: clear to auscultation bilaterally Cardio: COMMON NORMALS: regular rate, regular rhythm, S1 normal heart sound present and S2 normal heart sound present RATE: regular rate RHYTHM: r egular rhythm HEART SOUNDS: S1 normal heart sound present and S2 normal heart sound present GI: COMMON NORMALS: Normal to inspection, nondistended, normoactive bowel sounds present and non-tender Extremity: COMMON NORMALS: no pedal edema Neuro: SENSORIUM/ORIENTATION: Yes oriented to person and Yes oriented to place Data 05/02/25 03:38 05/02/25 03:38 A&P Assessment and plan 1. Protein calorie malnutrition: 2. Dementia: 3. Altered mental status: Plan: 84 year old male presenting after being found down at home. 1. Altered mental status: Resolving - Currently alert oriented x 2, following commands -In my opinion patient does not have capacity to make decisions - Will monitor mentation closely Severe protein calorie malnutrition -Protein shakes twice daily -Consult dietary - Speech therapy consulted, dysphagia diet severe neglect - BMI 12.2 - eating well on pureed diet. 2. Dementia: - unclear baseline. Waxing waning mentation during hospitalization 3. Atrial fibrillation: Continue home dose of Cardizem. Telemetry. - resume eliquis 2.5 twice daily 4. COPD (chronic obstructive pulmonary disease): Not in exacerbation. Oxygen supplementation keeping saturation over 90. DuoNebs as needed. Diet: doing well on pureed diet currently. eliquis for DVT prophylaxis Disposition Full code Plan for today, discharge planning, low-dose Zyprexa PDMP PDMP Reviewed: Not Reviewed Attestations 2 Medical Necessity Statement*: Family working on guardianship Diagnoses Protein calorie malnutrition E46 Dementia F03.90 Altered mental status R41.82
[2025-05-07] MEDS: APIXABAN 2.5 MG TABLET PO (21:57)
[2025-05-08] VITALS (7 sets, daily range): BP systolic 108–133; BP diastolic 49–72; PULSE 62–76; RESP 16–21; TEMP 36.4–37.1; O2SAT 93–98
--- NOTE | 2025-05-08 06:31 | PC.NURSE ---
Patient daughter Itzel was contacted at 0630 to inform of change of rooms. No answer, left voicemail.
[2025-05-08] MEDS: multivitamin therapeutic Tablet 1 TAB PO (06:35)
[2025-05-08] MEDS: dilTIAZem ER (24HR) 300 mg Capsule PO (06:36)
--- NOTE | 2025-05-08 07:36 | PC.NURSE ---
During med pass times this morning, I reviewed with patient the ointment/cream he had ordered for dry skin to BLE. He states I don't need that. Upon documentation review, the meds have been non-administered the last two shifts. I called and spoke with Dr. Oleary and he was in agreement to d/c meds. Patient also had a soft BM this morning, so I held [employer] and informed Dr. Oleary of this also.
[2025-05-08] MEDS: APIXABAN 2.5 MG TABLET PO ×2 (09:15→20:19)
--- NOTE | 2025-05-08 13:49 | P.PN_ITS ---
Subjective 2 Subjective: patient was seen this morning, has no complaints, denies any pain, no chest pain Vitals/I&O/Wt Last Vital Signs Temp 98.7 F 05/08/25 11:32 Pulse 62 05/08/25 11:32 Resp 18 05/08/25 11:32 BP 109/63 05/08/25 11:32 Pulse Ox 97 05/08/25 11:32 O2 Del Method Room Air 05/08/25 11:32 O2 Flow Rate 2 04/30/25 19:25 05/07/25 05/08/25 05/08/25 22:59 06:59 14:59 Intake Total 600 / 600 420 / 420 Output Total 150 / 150 Balance 600 / 600 270 / 270 Weight last 48 hrs Weight 45.4 kg Weight 45.8 kg Physical Exam 2 Const: COMMON NORMALS: no acute distress ORIENTATION/CONSCIOUSNESS: Yes awake, Yes oriented to person and Yes oriented to place; not oriented to time Resp: COMMON NORMALS: normal respiratory effort, No retractions, No use of accessory muscles and clear to auscultation bilaterally AUSCULTATION: clear to auscultation bilaterally Cardio: COMMON NORMALS: regular rate, regular rhythm, S1 normal heart sound present and S2 normal heart sound present RATE: regular rate RHYTHM: r egular rhythm HEART SOUNDS: S1 normal heart sound present and S2 normal heart sound present GI: COMMON NORMALS: Normal to inspection, nondistended, normoactive bowel sounds present and non-tender Extremity: COMMON NORMALS: no pedal edema Neuro: SENSORIUM/ORIENTATION: Yes oriented to person, Yes oriented to place and No oriented to time Psych: COMMON NORMALS: mental status grossly normal Data 05/02/25 03:38 05/02/25 03:38 A&P Assessment and plan 1. Protein calorie malnutrition: 2. Dementia: 3. Altered mental status: Plan: 84 year old male presenting after being found down at home. 1. Altered mental status: Resolving - Currently alert oriented x 2, following commands -In my opinion patient does not have capacity to make decisions - Will monitor mentation closely Severe protein calorie malnutrition -Protein shakes twice daily -Consult dietary - Speech therapy consulted, dysphagia diet severe neglect - BMI 12.2 - eating well on pureed diet. 2. Dementia: - unclear baseline. Waxing waning mentation during hospitalization 3. Atrial fibrillation: Continue home dose of Cardizem. Telemetry. - resume eliquis 2.5 twice daily 4. COPD (chronic obstructive pulmonary disease): Not in exacerbation. Oxygen supplementation keeping saturation over 90. DuoNebs as needed. Diet: doing well on pureed diet currently. eliquis for DVT prophylaxis Disposition Full code Plan for today, discharge planning, PDMP PDMP Reviewed: Not Reviewed Attestations 2 Medical Necessity Statement*: discharge planning Diagnoses Protein calorie malnutrition E46 Dementia F03.90 Altered mental status R41.82
[2025-05-09] VITALS (7 sets, daily range): BP systolic 97–123; BP diastolic 43–68; PULSE 62–104; RESP 14–18; TEMP 36.5–37.1; O2SAT 96–98; BMI 12.8
[2025-05-09] MEDS: dilTIAZem ER (24HR) 300 mg Capsule PO (04:27)
[2025-05-09] MEDS: polyethylene glycol 3350 Pkt 17 gm PO (04:27)
[2025-05-09] MEDS: multivitamin therapeutic Tablet 1 TAB PO (04:27)
[2025-05-09] MEDS: APIXABAN 2.5 MG TABLET PO (08:29)
== END 2025-05-09 16:35 | disposition home or self-care (01) ==
LOC: ER 15:57 → CSU 16:55 → MEDSURG 05-08 02:35
PROVIDERS: Family Medicine; Internal Medicine; Student in an Organized Health Care Education/Training Program; Admitting Provider Student in an Organized Health Care Education/Training Program; Emergency Provider Emergency Medicine; PCP Internal Medicine; Visit Provider Psychiatry & Neurology Psychiatry
DX: R41.82 Altered mental status, unspecified (principal); F03.90 Unspecified dementia, unspecified severity, without behavioral disturbance, psychotic disturbance, mood disturbance, and anxiety; E46 Unspecified protein-calorie malnutrition; Z68.1 Body mass index [BMI] 19.9 or less, adult; J44.9 Chronic obstructive pulmonary disease, unspecified; I48.20 Chronic atrial fibrillation, unspecified; R09.02 Hypoxemia; I10 Essential (primary) hypertension; Z86.711 Personal history of pulmonary embolism
CPT/HCPCS: 36415; 36600; 70450; 71045; 71250; 74176; 80048; 80051; 80053; 80061; 80306; 80307; 81001; 82140; 82330; 82550; 82607; 82746; 82805; 83036; 83540; 83550; 83605; 83735; 83880; 84100; 84145; 84443; 85025; 85049; 85610; 85651; 86140; 86403; 87040; 87086; 87637; 92507; 92523; 92526; 92610; 93005; 94664; 94760; 96372; 97110; 97162; 97167; 97530; 97535; G0378; J1630; J1644; J2270; J3411; J3490; J7030; J9999